=== PATIENT | male | born 1940 | race Caucasian/White ===

== ENCOUNTER 2017-06-29 17:27 | Inpatient (IN) | payer MEDICARE, OTHER ==
[~2017-06-29] VITALS: Ht 175.3 cm; Wt 124.9 kg
[2017-06-29] MEDS ORDERED: ADULT ASPIRIN R81 MG (17:35)
[2017-06-29] MEDS ORDERED: ATOR10 PO (17:36)
[2017-06-29] MEDS ORDERED: HYDCHL25 PO (17:36)
[2017-06-29] MEDS ORDERED: GABA600 PO (17:36)
[2017-06-29 18:12] LABS: Source, Urine Clean Catch
[2017-06-29 18:23] LABS: BASOPHILS ABSOLUTE AUTO 0.03 K/mm3 (0.00-0.23); BASOPHILS PERCENT AUTO 0 % (0-2); EOSINOPHILS ABSOLUTE AUTO 0.04 K/mm3 (0.00-0.68); EOSINOPHILS PERCENT AUTO 0 % (0-6); Hematocrit 35.4 % (37.0-53.0); Hemoglobin 11.6 g/dL (13.5-17.5); IMMATURE GRAN ABSOLUTE AUTO 0.19 K/mm3 (0.00-0.10); IMMATURE GRAN PERCENT AUTO 1 % (0-1); LYMPHOCYTES ABSOLUTE AUTO 1.14 K/mm3 (0.84-5.20); LYMPHOCYTES PERCENT AUTO 4 % (21-46); MONOCYTES ABSOLUTE AUTO 1.62 K/mm3 (0.16-1.47); MONOCYTES PERCENT AUTO 6 % (4-13); Mean Corpuscular HGB 27.8 pg (26.0-34.0); Mean Corpuscular HGB Conc 32.8 g/dL (31.5-36.5); Mean Corpuscular Volume 85 fL (80-100); Mean Platelet Volume 9.6 fL (9.1-12.4); NEUTROPHILS ABSOLUTE AUTO 23.53 K/mm3 (1.96-9.15); NEUTROPHILS PERCENT AUTO 89 % (41-73); Platelet Count 284 K/mm3 (150-400); RDW Coefficient Variation 14.2 % (11.7-14.2); RDW Standard Deviation 43.6 fL (35.1-46.3); Red Blood Cell Count 4.18 M/mm3 (4.30-5.90); White Blood Cell Count 26.55 K/mm3 (4.00-11.30)
[2017-06-29 18:24] LABS: Bilirubin, Urine Neg (Neg); Blood, Urine 1+ (Neg); Glucose Qualitative, Urine Neg (Neg); Ketones, Urine Neg (Neg); Leukocyte Esterase, Urine Neg (Neg); Nitrite, Urine Neg (Neg); Protein, Urine 2+ (Neg); Specific Gravity, Urine 1.015 (1.003-1.022); Urobilinogen, Urine NORM (Normal)
[2017-06-29 18:36] LABS: Appearance, Urine Clear (Clear); Color, Urine Yellow (P-Yellow)
[2017-06-29 18:38] LABS: Bacteria Rare /hpf; Red Blood Cells, Urine 0-2 /hpf (0-2); Squamous Epithelial Cells Rare /hpf (Few); White Blood Cells, Urine Not Seen /hpf (0-5)
[2017-06-29 18:40] LABS: Albumin/Globulin Ratio 0.6 (0.8-1.8); Bilirubin, Total 0.4 mg/dL (0.1-1.0); Bun/Creatinine Ratio 24.4 (12.0-20.0); Calcium, Blood 8.7 mg/dL (8.5-10.1); Creatinine, Blood 1.64 mg/dL (0.60-1.20); Globulin, Blood 4.7 g/dL (2.2-4.0); Potassium, Blood 4.2 mmol/L (3.5-5.5); Total Protein, Blood 7.7 g/dL (6.4-8.2)
[2017-06-29 21:04] LABS: Influenza A Negative (NEGATIVE); Influenza B Negative (NEGATIVE)
[2017-06-29 21:33] LABS: International Normalized Ratio 1.03; Prothrombin Time Results 10.7 Sec (9.7-11.5)
[2017-06-29 21:58] LABS: PCO2 Arterial 42.6 mmHg (35-45); PO2 Arterial 56.6 mmHg (80-100); pH Blood Arterial 7.37 (7.35-7.45)
[2017-06-29 22:00] LABS: Prolactin 27.5 ng/mL (2.5-17.4)
[2017-06-30] MEDS ORDERED: INSULANPEN SC (01:36)
[2017-06-30] MEDS ORDERED: METAMUCIL MULT660 GM PO (01:37)
[2017-06-30] MEDS ORDERED: Hair, Skin & N1 EACH PO (01:38)
[2017-06-30] MEDS ORDERED: INSU100I6 SC (01:39)
[2017-06-30] MEDS ORDERED: SERT50 PO (01:39)
[2017-06-30] MEDS ORDERED: TAMS.4ER PO (01:40)
[2017-06-30 03:55] LABS: Hemoglobin 10.6 g/dL (13.5-17.5); Mean Corpuscular HGB 27.7 pg (26.0-34.0); Mean Corpuscular HGB Conc 32.1 g/dL (31.5-36.5); Mean Corpuscular Volume 86 fL (80-100); Mean Platelet Volume 9.6 fL (9.1-12.4); Platelet Count 264 K/mm3 (150-400); RDW Coefficient Variation 14.7 % (11.7-14.2); RDW Standard Deviation 46.1 fL (35.1-46.3); Red Blood Cell Count 3.82 M/mm3 (4.30-5.90); White Blood Cell Count 36.28 K/mm3 (4.00-11.30)
[2017-06-30 04:12] LABS: Albumin, Blood 2.6 g/dL (3.4-5.0); Albumin/Globulin Ratio 0.6 (0.8-1.8); Bilirubin, Total 0.4 mg/dL (0.1-1.0); Bun/Creatinine Ratio 23.2 (12.0-20.0); Calcium, Blood 7.8 mg/dL (8.5-10.1); Creatinine, Blood 1.68 mg/dL (0.60-1.20); Globulin, Blood 4.4 g/dL (2.2-4.0); Potassium, Blood 4.1 mmol/L (3.5-5.5)
[2017-06-30 05:39] LABS: BASOPHILS PERCENT MAN 0 % (0-2); EOSINOPHILS PERCENT MAN 0 % (0-6); LYMPHOCYTES ABSOLUTE MAN 1.08 K/mm3 (0.84-5.20); LYMPHOCYTES PERCENT MAN 3 % (21-46); MONOCYTES ABSOLUTE MAN 0.36 K/mm3 (0.16-1.47); MONOCYTES PERCENT MAN 1 % (4-13); NEUTROPHILS ABSOLUTE MAN 34.82 K/mm3 (1.96-9.15); SEG NEUTROPHILS PERCENT MAN 96 % (41-73); TOTAL CELLS COUNTED 100
[2017-06-30 09:07] LABS: Vancomycin, Trough 15.5 ug/mL (5.0-10.0)
[2017-07-01 04:48] LABS: BASOPHILS ABSOLUTE AUTO 0.02 K/mm3 (0.00-0.23); BASOPHILS PERCENT AUTO 0 % (0-2); EOSINOPHILS PERCENT AUTO 1 % (0-6); Hematocrit 32.6 % (37.0-53.0); Hemoglobin 10.3 g/dL (13.5-17.5); IMMATURE GRAN ABSOLUTE AUTO 0.07 K/mm3 (0.00-0.10); IMMATURE GRAN PERCENT AUTO 0 % (0-1); LYMPHOCYTES ABSOLUTE AUTO 2.28 K/mm3 (0.84-5.20); LYMPHOCYTES PERCENT AUTO 13 % (21-46); MONOCYTES ABSOLUTE AUTO 1.18 K/mm3 (0.16-1.47); MONOCYTES PERCENT AUTO 7 % (4-13); Mean Corpuscular HGB 27.4 pg (26.0-34.0); Mean Corpuscular HGB Conc 31.6 g/dL (31.5-36.5); Mean Corpuscular Volume 87 fL (80-100); Mean Platelet Volume 9.7 fL (9.1-12.4); NEUTROPHILS ABSOLUTE AUTO 14.59 K/mm3 (1.96-9.15); NEUTROPHILS PERCENT AUTO 80 % (41-73); Platelet Count 233 K/mm3 (150-400); Red Blood Cell Count 3.76 M/mm3 (4.30-5.90); White Blood Cell Count 18.24 K/mm3 (4.00-11.30)
[2017-07-01 06:04] LABS: Bun/Creatinine Ratio 21.9 (12.0-20.0); Creatinine, Blood 1.6 mg/dL (0.60-1.20); Potassium, Blood 3.8 mmol/L (3.5-5.5)
[2017-07-01 09:34] LABS: Vancomycin, Trough 28.5 ug/mL (5.0-10.0)
[2017-07-01 20:21] LABS: Vancomycin, Trough 19.9 ug/mL (5.0-10.0)
[2017-07-02 05:44] LABS: BASOPHILS ABSOLUTE AUTO 0.02 K/mm3 (0.00-0.23); BASOPHILS PERCENT AUTO 0 % (0-2); EOSINOPHILS PERCENT AUTO 2 % (0-6); Hematocrit 33.7 % (37.0-53.0); Hemoglobin 10.7 g/dL (13.5-17.5); IMMATURE GRAN PERCENT AUTO 1 % (0-1); LYMPHOCYTES ABSOLUTE AUTO 2.31 K/mm3 (0.84-5.20); LYMPHOCYTES PERCENT AUTO 19 % (21-46); MONOCYTES ABSOLUTE AUTO 1.18 K/mm3 (0.16-1.47); MONOCYTES PERCENT AUTO 10 % (4-13); Mean Corpuscular HGB 27.7 pg (26.0-34.0); Mean Corpuscular HGB Conc 31.8 g/dL (31.5-36.5); Mean Corpuscular Volume 87 fL (80-100); Mean Platelet Volume 9.8 fL (9.1-12.4); NEUTROPHILS ABSOLUTE AUTO 8.41 K/mm3 (1.96-9.15); NEUTROPHILS PERCENT AUTO 68 % (41-73); Platelet Count 255 K/mm3 (150-400); RDW Coefficient Variation 14.7 % (11.7-14.2); RDW Standard Deviation 47.2 fL (35.1-46.3); Red Blood Cell Count 3.86 M/mm3 (4.30-5.90); White Blood Cell Count 12.32 K/mm3 (4.00-11.30)
[2017-07-02 06:07] LABS: Alanine Aminotransfer (ALT/SGP 47 U/L (12-78); Albumin, Blood 2.4 g/dL (3.4-5.0); Albumin/Globulin Ratio 0.5 (0.8-1.8); Alk Phos 82 U/L (50-136); Anion Gap 7 mmol/L (6-16); Aspartate Aminotrans (AST/SGOT 46 U/L (12-37); Bilirubin, Total 0.2 mg/dL (0.1-1.0); Blood Urea Nitrogen 32 mg/dL (8-24); Bun/Creatinine Ratio 21.9 (12.0-20.0); CO2, Blood 27 mmol/L (21-32); Calcium, Blood 8.1 mg/dL (8.5-10.1); Chloride, Blood 103 mmol/L (98-108); Creatinine, Blood 1.46 mg/dL (0.60-1.20); Globulin, Blood 4.8 g/dL (2.2-4.0); Glomerular Filtration Rate 49 (60-); Glucose, Blood 143 mg/dL (70-99); Sodium, Blood 137 mmol/L (136-145); Total Protein, Blood 7.2 g/dL (6.4-8.2)
[2017-07-03 05:36] LABS: Vancomycin, Trough 17.8 ug/mL (5.0-10.0)
[2017-07-04 06:24] LABS: BASOPHILS ABSOLUTE AUTO 0.03 K/mm3 (0.00-0.23); BASOPHILS PERCENT AUTO 0 % (0-2); EOSINOPHILS ABSOLUTE AUTO 0.29 K/mm3 (0.00-0.68); EOSINOPHILS PERCENT AUTO 3 % (0-6); Hematocrit 36.9 % (37.0-53.0); Hemoglobin 12.1 g/dL (13.5-17.5); IMMATURE GRAN ABSOLUTE AUTO 0.31 K/mm3 (0.00-0.10); IMMATURE GRAN PERCENT AUTO 3 % (0-1); LYMPHOCYTES ABSOLUTE AUTO 2.58 K/mm3 (0.84-5.20); LYMPHOCYTES PERCENT AUTO 25 % (21-46); MONOCYTES ABSOLUTE AUTO 0.76 K/mm3 (0.16-1.47); MONOCYTES PERCENT AUTO 7 % (4-13); Mean Corpuscular HGB 27.8 pg (26.0-34.0); Mean Corpuscular HGB Conc 32.8 g/dL (31.5-36.5); Mean Corpuscular Volume 85 fL (80-100); Mean Platelet Volume 9.4 fL (9.1-12.4); NEUTROPHILS ABSOLUTE AUTO 6.24 K/mm3 (1.96-9.15); NEUTROPHILS PERCENT AUTO 61 % (41-73); Platelet Count 304 K/mm3 (150-400); RDW Coefficient Variation 14.1 % (11.7-14.2); RDW Standard Deviation 43.7 fL (35.1-46.3); Red Blood Cell Count 4.35 M/mm3 (4.30-5.90); White Blood Cell Count 10.21 K/mm3 (4.00-11.30)
[2017-07-04 06:48] LABS: Alanine Aminotransfer (ALT/SGP 36 U/L (12-78); Albumin, Blood 2.6 g/dL (3.4-5.0); Albumin/Globulin Ratio 0.5 (0.8-1.8); Alk Phos 85 U/L (50-136); Anion Gap 9 mmol/L (6-16); Aspartate Aminotrans (AST/SGOT 26 U/L (12-37); Bilirubin, Total 0.3 mg/dL (0.1-1.0); Blood Urea Nitrogen 30 mg/dL (8-24); Bun/Creatinine Ratio 20.5 (12.0-20.0); CO2, Blood 26 mmol/L (21-32); Calcium, Blood 8.6 mg/dL (8.5-10.1); Chloride, Blood 102 mmol/L (98-108); Creatinine, Blood 1.46 mg/dL (0.60-1.20); Glomerular Filtration Rate 49 (60-); Glucose, Blood 149 mg/dL (70-99); Potassium, Blood 4.2 mmol/L (3.5-5.5); Sodium, Blood 137 mmol/L (136-145); Total Protein, Blood 7.6 g/dL (6.4-8.2)
[2017-07-06] MEDS ORDERED: ASPI81CH PO (15:38)
[2017-07-06] MEDS ORDERED: CEPH500 PO (15:39)
[2018-05-27] MEDS ORDERED: SENN187 PO (19:23)
[2018-05-27] MEDS ORDERED: Vitamin B Comple1 EA PO (19:26)
[2018-05-27] MEDS ORDERED: CHOL10002 PO (19:27)
[2018-05-27] MEDS ORDERED: ROPI.25 PO ×2 (19:28→19:29)
[2018-05-27] MEDS ORDERED: DOK100 MG PO ×2 (19:28→19:30)
[2018-05-27] MEDS ORDERED: FLONASE ALLERG9.9 ML (19:31)
[2018-05-27] MEDS ORDERED: LOSA25 PO (19:33)
[2018-05-27] MEDS ORDERED: MULTI VITAMIN1 EACH PO (19:33)
[2018-05-27] MEDS ORDERED: NITR.4SL SL (19:36)
[2018-05-27] MEDS ORDERED: HYDR1TAB94 PO (19:37)
[2018-05-27] MEDS ORDERED: ONDA8 PO (19:37)
[2018-05-27] MEDS ORDERED: ACET325 PO (19:38)
[2018-05-27] MEDS ORDERED: Milk Of Ma400 MG/5 M PO (22:31)
[2018-06-01] MEDS ORDERED: DOXY100 PO (13:34)
[2018-06-01] MEDS ORDERED: PRED10 PO (13:36)
[2018-06-01] MEDS ORDERED: SACC250C PO (13:37)
== END 2017-07-06 17:18 | disposition home health service (06) | DRG 871 ==
LOC: ER 17:27 → ICUW 21:43 → ICUE 21:43 → MEDS 06-30 20:37
PROVIDERS: Emergency Medicine; Hospitalist; Internal Medicine
DX: A41.9 Sepsis, unspecified organism (principal); G93.41 Metabolic encephalopathy; E11.40 Type 2 diabetes mellitus with diabetic neuropathy, unspecified; E11.22 Type 2 diabetes mellitus with diabetic chronic kidney disease; L03.116 Cellulitis of left lower limb; Z68.41 Body mass index [BMI] 40.0-44.9, adult; F03.90 Unspecified dementia, unspecified severity, without behavioral disturbance, psychotic disturbance, mood disturbance, and anxiety; R65.20 Severe sepsis without septic shock; I12.9 Hypertensive chronic kidney disease with stage 1 through stage 4 chronic kidney disease, or unspecified chronic kidney disease; N18.2 Chronic kidney disease, stage 2 (mild); E78.5 Hyperlipidemia, unspecified; E66.9 Obesity, unspecified; Z66 Do not resuscitate; Z88.0 Allergy status to penicillin; Z88.2 Allergy status to sulfonamides; Z88.8 Allergy status to other drugs, medicaments and biological substances; Z79.82 Long term (current) use of aspirin; Z79.4 Long term (current) use of insulin; Z79.899 Other long term (current) drug therapy
CPT/HCPCS: 36415; 36600; 51701; 51703; 62270; 70450; 71045; 73620; 80048; 80053; 80202; 81001; 82607; 82746; 82803; 82947; 83605; 83880; 84146; 84443; 85025; 85610; 86592; 87040; 87081; 87804; 96361; 96365; 96367; 97110; 97116; 97162; 97530; 99285; C1751; G8978; G8979; J0456; J0696; J1650; J1815; J2405; J3370; J7030; J7050

== ENCOUNTER → 2018-01-29 | Outpatient (CLI) | payer MEDICARE, OTHER ==
[~2018-01-29] MED LIST: ADULT ASPIRIN R81 MG; ASPI81CH PO; ATOR10 PO; CEPH500 PO; GABA600 PO; HYDCHL25 PO; Hair, Skin & N1 EACH PO; INSU100I6 SC; INSULANPEN SC; METAMUCIL MULT660 GM PO; SERT50 PO; TAMS.4ER PO
[2018-01-29 17:02] LABS: Source, Urine Clean Catch
[2018-01-29 17:13] LABS: Appearance, Urine Clear (Clear); Bilirubin, Urine Neg (Neg); Blood, Urine Neg (Neg); Color, Urine Yellow (P-Yellow); Glucose Qualitative, Urine Neg (Neg); Ketones, Urine Neg (Neg); Leukocyte Esterase, Urine Neg (Neg); Nitrite, Urine Neg (Neg); Protein, Urine Neg (Neg); Specific Gravity, Urine 1.015 (1.003-1.022); Urobilinogen, Urine NORM (Normal)
== END ==
LOC: LAB SHORT 12:55 → LAB 12:55
PROVIDERS: Internal Medicine
DX: R39.9 Unspecified symptoms and signs involving the genitourinary system (principal)
CPT/HCPCS: 81003

== ENCOUNTER 2019-02-19 12:19 | Inpatient (IN) | payer MEDICARE, OTHER ==
[~2019-02-19] VITALS: Ht 180.3 cm; Wt 127.0 kg
[~2019-02-19 12:19] MED LIST changes: -ASPI81CH PO; -ATOR10 PO; +DOK100 MG PO; +DOXY100 PO; -GABA600 PO; -HYDCHL25 PO; -INSU100I6 SC; -INSULANPEN SC; +PRED10 PO; +ROPI.25 PO; +SACC250C PO; -SERT50 PO; -TAMS.4ER PO
[2019-02-19 13:01] LABS: BASOPHILS ABSOLUTE AUTO 0.06 K/mm3 (0.00-0.23); BASOPHILS PERCENT AUTO 0 % (0-2); EOSINOPHILS ABSOLUTE AUTO 0.02 K/mm3 (0.00-0.68); EOSINOPHILS PERCENT AUTO 0 % (0-6); Hematocrit 38.6 % (37.0-53.0); Hemoglobin 12.5 g/dL (13.5-17.5); IMMATURE GRAN ABSOLUTE AUTO 0.41 K/mm3 (0.00-0.10); IMMATURE GRAN PERCENT AUTO 1 % (0-1); LYMPHOCYTES ABSOLUTE AUTO 0.71 K/mm3 (0.84-5.20); LYMPHOCYTES PERCENT AUTO 2 % (21-46); MONOCYTES ABSOLUTE AUTO 1.76 K/mm3 (0.16-1.47); MONOCYTES PERCENT AUTO 6 % (4-13); Mean Corpuscular HGB 29.2 pg (26.0-34.0); Mean Corpuscular HGB Conc 32.4 g/dL (31.5-36.5); Mean Corpuscular Volume 90 fL (80-100); Mean Platelet Volume 10.2 fL (9.1-12.4); NEUTROPHILS ABSOLUTE AUTO 27.65 K/mm3 (1.96-9.15); NEUTROPHILS PERCENT AUTO 90 % (41-73); Platelet Count 264 K/mm3 (150-400); RDW Coefficient Variation 13.8 % (11.7-14.2); RDW Standard Deviation 45.6 fL (35.1-46.3); Red Blood Cell Count 4.28 M/mm3 (4.30-5.90); White Blood Cell Count 30.61 K/mm3 (4.00-11.30)
[2019-02-19 13:02] LABS: Source, Urine Catheter
[2019-02-19 13:05] LABS: Bilirubin, Urine Neg (Neg); Blood, Urine Neg (Neg); Glucose Qualitative, Urine Neg (Neg); Ketones, Urine Neg (Neg); Leukocyte Esterase, Urine Neg (Neg); Nitrite, Urine Neg (Neg); Protein, Urine 2+ (Neg); Specific Gravity, Urine 1.015 (1.003-1.022); Urobilinogen, Urine NORM (Normal)
[2019-02-19 13:16] LABS: Color, Urine Yellow (P-Yellow)
[2019-02-19 13:16] LABS: Albumin, Blood 3.3 g/dL (3.4-5.0); Albumin/Globulin Ratio 0.8 (0.8-1.8); Bilirubin, Total 0.3 mg/dL (0.1-1.0); Bun/Creatinine Ratio 25.9 (12.0-20.0); Calcium, Blood 8.5 mg/dL (8.5-10.1); Creatinine, Blood 1.62 mg/dL (0.60-1.20); Globulin, Blood 4.3 g/dL (2.2-4.0); Potassium, Blood 4.4 mmol/L (3.5-5.5); Total Protein, Blood 7.6 g/dL (6.4-8.2); Troponin I 0.026 ng/mL (0.000-0.040)
[2019-02-19 13:27] LABS: Amorphous Light ({null, 0-Heavy}); Appearance, Urine Clear (Clear); Bacteria Rare /hpf; Red Blood Cells, Urine 0-2 /hpf (0-2); Squamous Epithelial Cells Rare /hpf (Few); White Blood Cells, Urine 0-2 /hpf (0-5)
[2019-02-19] MEDS ORDERED: HYDCHL25 PO (13:49)
[2019-02-19] MEDS ORDERED: INSULANPEN SC (13:50)
[2019-02-19] MEDS ORDERED: NOVOLOG FL100 UNIT/1 SC (13:50)
[2019-02-19] MEDS ORDERED: DOK100 MG PO (13:51)
[2019-02-19] MEDS ORDERED: Aspirin EC81 MG PO (13:51)
[2019-02-19] MEDS ORDERED: SERT50 PO (13:51)
[2019-02-19] MEDS ORDERED: Flonase 0.05% N16 GM (13:52)
[2019-02-19] MEDS ORDERED: LOSA50 PO (13:53)
[2019-02-19] MEDS ORDERED: Amlodipine Bes2.5 MG PO (13:53)
[2019-02-19] MEDS ORDERED: LACT PO (13:53)
[2019-02-19] MEDS ORDERED: FERSU300 PO (13:54)
[2019-02-19] MEDS ORDERED: ATOR10 PO (13:55)
[2019-02-19] MEDS ORDERED: GABA600 PO (13:55)
[2019-02-19] MEDS ORDERED: TAMS.4ER PO (13:55)
[2019-02-19] MEDS ORDERED: VITAMIN D32000 UNI1 PO (13:57)
[2019-02-19] MEDS ORDERED: Ropinirole HCl1 MG PO (13:58)
[2019-02-19] MEDS ORDERED: MULTI VITAMIN1 EACH PO (13:58)
[2019-02-19] MEDS ORDERED: HYDR1TAB94 PO ×2 (13:59→14:12)
[2019-02-19] MEDS ORDERED: SENN187 PO (14:00)
[2019-02-19] MEDS ORDERED: NITR.4SL SL (14:01)
[2019-02-19] MEDS ORDERED: ONDA8 PO (14:01)
[2019-02-19] MEDS ORDERED: ACET500 PO (14:02)
[2019-02-19] MEDS ORDERED: B-121000 MC2 PO (14:03)
[2019-02-19] MEDS ORDERED: ASCO500 PO (14:04)
[2019-02-19] MEDS ORDERED: Milk Of Ma400 MG/5 M PO (14:04)
[2019-02-19] MEDS ORDERED: MELA3 PO (14:04)
[2019-02-19] MEDS ORDERED: Pedi-Dri 100,0060 GM TOP (14:05)
[2019-02-19] MEDS ORDERED: DICLOFENAC SOD100 G1 TOP (14:07)
[2019-02-19] MEDS ORDERED: VANICREAM453 GM TOP (14:08)
[2019-02-19] MEDS ORDERED: Glucose4 GM PO (14:09)
[2019-02-19] MEDS ORDERED: BISA10S PR (14:10)
[2019-02-19] MEDS ORDERED: ENEMA BOTTLE1 EACH PR (14:11)
[2019-02-19] MEDS ORDERED: Pepto-Bism525 MG/15 PO (14:12)
[2019-02-19] MEDS ORDERED: ALLERGY EYE DRO10 M1 BOTHEYES (14:13)
[2019-02-19] MEDS ORDERED: Triple Antibio1 EACH TOP (14:14)
[2019-02-19] MEDS ORDERED: [UNRECOGNIZED DRUG - OTHER] TOP (14:14)
--- NOTE | 2019-02-19 17:30 | NUR ---
PT ARRIVED TO ROOM 344 VIA GURNEY. TRANSFERRED TO BED WITH SLIDE SHEET, 2LNC IN PLACE, PT RESP INCREASED, USING ABD MUSCLES. ORIENTED TO ROOM AND CALL SYSTEM. WILL CONTINUE TO MONITOR AND REPORT TO ONCOMING RN
--- NOTE | 2019-02-20 05:34 | NUR ---
SHIFT SUMMARY PT A/O C/O PAIN IN KNEES AND MEDICATED PER EMAR. GETS SOB C EXERTION. 2L O2 NC. USED RECLINER TO SLEEP IN FOR A WHILE BEFORE GOING BACK TO BED. BEEN INCONT. 1-2 SBA IF OOB. BED ALARM IN USE. HE WAS ABLE TO SLEEP ON AND OFF T/O NIGHT.
[2019-02-20 05:48] LABS: Hematocrit 34.3 % (37.0-53.0); Hemoglobin 10.8 g/dL (13.5-17.5); Mean Corpuscular HGB Conc 31.5 g/dL (31.5-36.5); Mean Corpuscular Volume 92 fL (80-100); Mean Platelet Volume 10.1 fL (9.1-12.4); Platelet Count 220 K/mm3 (150-400); RDW Coefficient Variation 14.4 % (11.7-14.2); RDW Standard Deviation 49.1 fL (35.1-46.3); Red Blood Cell Count 3.72 M/mm3 (4.30-5.90); White Blood Cell Count 30.81 K/mm3 (4.00-11.30)
[2019-02-20 06:06] LABS: Bun/Creatinine Ratio 24.7 (12.0-20.0); Calcium, Blood 8.3 mg/dL (8.5-10.1); Creatinine, Blood 1.86 mg/dL (0.60-1.20); Potassium, Blood 4.4 mmol/L (3.5-5.5)
--- NOTE | 2019-02-20 15:56 | NUR ---
REPORT CALLED TO DAREN BUTLER AND PT TRANSFERRED TO ROOM 312
--- NOTE | 2019-02-20 16:12 | NUR ---
PT TRANSFERED PT TRANSFERED AT 1534. PT IN STABLE CONDITION. PT ORIENTED TO NEW ROOM. CALL LIGHT IN REACH. BED ALARMED. WILL CONTINUE TO MONITOR
--- NOTE | 2019-02-20 16:21 | NUR ---
CODE STATUS-DNR CODE STATUS CHANGED TO DNR DR. PT REQUEST. ORDER CONFIRMED WITH DR. SIM. DNR BAND PLACED & ORDER VERIFIED BY OPHELIA WASHINGTON.
--- NOTE | 2019-02-20 17:33 | NUR ---
SHIFT SUMMARY NO CHANGES IN ASSESSMENT AT THIS TIME. PT A&O. BED ALARMED FOR FORGETFULNESS. VSS. WILL CONTINUE TO MONITOR UNTIL TURNOVER IS COMPLETE.
--- NOTE | 2019-02-21 03:38 | NUR ---
NOC SHIFT SUMMARY PT IS PLEASANT AND COOPERATIVE WITH CARE. ORIENTED TO SELF AND PLACE. HE KNOWS HE IS IN [facility] BUT BELIEVES IT TO BE LOCATED IN [place]. HE IS ON TELE PRESENTLY SINUS PILO WITH FIRST DEGREE BLOCK RATE 53 PER AIRFRAME TECHNICIAN. HE IS SLEEPING AND RESP ARE EVEN AND UNLABORED, SNORING SOFTLY. TREATED FOR PAIN PER EMAR TO GOOD EFFECT. LEFT LOWER LEG CELLULITIS REMAINS RED FROM BELOW KNEE TO FOOT. INCONTINENT OF URINE THIS NIGHT AND REQUIRED BED CHANGE. PRESENTLY APEARS IN NO ACUTE DISTRESS. VSS. WILL CONTINUE TO MONITOR.
[2019-02-21 08:13] LABS: Hematocrit 36.6 % (37.0-53.0); Hemoglobin 11.6 g/dL (13.5-17.5); Mean Corpuscular HGB 28.6 pg (26.0-34.0); Mean Corpuscular HGB Conc 31.7 g/dL (31.5-36.5); Mean Corpuscular Volume 90 fL (80-100); Mean Platelet Volume 10.1 fL (9.1-12.4); Platelet Count 220 K/mm3 (150-400); RDW Coefficient Variation 14.4 % (11.7-14.2); RDW Standard Deviation 48.1 fL (35.1-46.3); Red Blood Cell Count 4.05 M/mm3 (4.30-5.90); White Blood Cell Count 14.05 K/mm3 (4.00-11.30)
[2019-02-21 08:36] LABS: Bun/Creatinine Ratio 24.3 (12.0-20.0); Calcium, Blood 8.7 mg/dL (8.5-10.1); Creatinine, Blood 1.77 mg/dL (0.60-1.20); Potassium, Blood 4.2 mmol/L (3.5-5.5)
[2019-02-21 15:39] LABS: Vancomycin, Trough 15.2 ug/mL (5.0-10.0)
--- NOTE | 2019-02-21 18:34 | NUR ---
SUMMARY PT IS A/O X4, PLEASANT/COOPERATIVE AFFECT. STATE WEAKNESS/FATIGUE. STATE NO PAIN LLE CELLULITIS AREA D/T HX NEUROPATHY, NUMBNESS. LEG IS RED, WARM w MULT SCABS, NOT SWOLLEN. WBC 14, IV ANTIBX ARE ORDERED. HE HAS BEEN AFEBRILE T/O DAY. EYELET MACHINE OPERATOR ASSIST HIM TO SHOWER TODAY, [address] SIM STATE POSSIBLE D/C TO [facility] TOMORROW.
--- NOTE | 2019-02-22 06:36 | NUR ---
SHIFT SUMMARY NO ACUTE EVENTS OVERNIGHT. PATIENT SLEPT THROUGHOUT NIGHT. PATIENT FORGETFUL AT TIME BUT AAOX4. LLE EDEMATOUS AND RED.
--- NOTE | 2019-02-22 17:41 | NUR ---
SUMMARY PT IS A/O X4 T/O DAY, PLEASANT AFFECT. GETS UP TO BEDSIDE FOR MEALS & TO USE URINAL. DECLINES UP IN CHAIR T/O DAY. STATE CONTINUING WEAKNESS/FATIGUE. DX LLE CELLULITIS, LEG IS RED, WARM, SWOLLEN, AREA MAPPED. MULT HEALING SCABS BLE, HE STATE HX BLE NEUROPATHY/NUMBNESS. STATE NO PAIN. IV ANTIBX CONTINUE. VSS, HE IS AFEBRILE T/O DAY.
[2019-02-23 04:44] LABS: BASOPHILS ABSOLUTE AUTO 0.03 K/mm3 (0.00-0.23); BASOPHILS PERCENT AUTO 0 % (0-2); EOSINOPHILS ABSOLUTE AUTO 0.35 K/mm3 (0.00-0.68); EOSINOPHILS PERCENT AUTO 4 % (0-6); Hematocrit 34.5 % (37.0-53.0); IMMATURE GRAN ABSOLUTE AUTO 0.19 K/mm3 (0.00-0.10); IMMATURE GRAN PERCENT AUTO 2 % (0-1); LYMPHOCYTES ABSOLUTE AUTO 2.24 K/mm3 (0.84-5.20); LYMPHOCYTES PERCENT AUTO 26 % (21-46); MONOCYTES ABSOLUTE AUTO 0.85 K/mm3 (0.16-1.47); MONOCYTES PERCENT AUTO 10 % (4-13); Mean Corpuscular HGB 28.6 pg (26.0-34.0); Mean Corpuscular HGB Conc 31.9 g/dL (31.5-36.5); Mean Corpuscular Volume 90 fL (80-100); Mean Platelet Volume 9.5 fL (9.1-12.4); NEUTROPHILS PERCENT AUTO 57 % (41-73); Platelet Count 243 K/mm3 (150-400); RDW Coefficient Variation 14.1 % (11.7-14.2); RDW Standard Deviation 45.8 fL (35.1-46.3); Red Blood Cell Count 3.84 M/mm3 (4.30-5.90); White Blood Cell Count 8.56 K/mm3 (4.00-11.30)
--- NOTE | 2019-02-23 05:04 | NUR ---
SHIFT SUMMARY PATEINT HAD NO ACUTE EVENTS OVERNIGHT. SLEPT THE MAJORITY OF THE NIGHT AFTER RECEIVING EVENING MEDS.
[2019-02-23 05:07] LABS: Albumin, Blood 2.5 g/dL (3.4-5.0); Albumin/Globulin Ratio 0.6 (0.8-1.8); Bilirubin, Total 0.3 mg/dL (0.1-1.0); Bun/Creatinine Ratio 25.8 (12.0-20.0); Calcium, Blood 8.6 mg/dL (8.5-10.1); Creatinine, Blood 1.63 mg/dL (0.60-1.20); Globulin, Blood 4.1 g/dL (2.2-4.0); Potassium, Blood 4.1 mmol/L (3.5-5.5); Total Protein, Blood 6.6 g/dL (6.4-8.2)
[2019-02-23 05:17] LABS: Thyroid Stimulating Hormone 4.23 uIU/mL (0.360-4.800)
[2019-02-23] MEDS ORDERED: CEFP200 PO (14:13)
--- NOTE | 2019-02-23 14:46 | NUR ---
REPORT CALLED TO CARRIE GREENWOOD AT [facility]. RX FAXED TO [facility] AND TO [facility] WELL A COPY SENT WITH PT TO [facility]. PT PRIMARY UPDATED TO WYATT BELCHER AT THE ID. PER TIMO SHE WILL CALL AND SCHEDULE A F/U WITH HOME BASED CARE THROUGH THE ID. PT AWAITING TRANSPORTATION BACK.
--- NOTE | 2019-02-23 15:13 | NUR ---
PT DISCHARGED BACK TO [facility] AT 1510 VIA [facility] W/C.
--- NOTE | 2019-03-11 03:19 | NUR ---
ISOLATION ORDER PLACED ON 02/21/2019 WAS FROM NAS SIM MD NOT JING SIM MD.
== END 2019-02-23 15:10 | disposition home or self-care (01) | DRG 871 ==
LOC: ER 12:19 → MEDS 14:38 → EDPENDDIS 02-23 14:04 → ENPENDDIS 02-23 14:04 → MEDS 02-23 15:10
PROVIDERS: Emergency Medicine; Internal Medicine; Pharmacist; ADMIT Internal Medicine
DX: A41.9 Sepsis, unspecified organism (principal); G93.41 Metabolic encephalopathy; L03.116 Cellulitis of left lower limb; R65.20 Severe sepsis without septic shock; N40.0 Benign prostatic hyperplasia without lower urinary tract symptoms; N18.3 Chronic kidney disease, stage 3 (moderate); F03.90 Unspecified dementia, unspecified severity, without behavioral disturbance, psychotic disturbance, mood disturbance, and anxiety; E11.22 Type 2 diabetes mellitus with diabetic chronic kidney disease; I12.9 Hypertensive chronic kidney disease with stage 1 through stage 4 chronic kidney disease, or unspecified chronic kidney disease; D63.1 Anemia in chronic kidney disease; E11.40 Type 2 diabetes mellitus with diabetic neuropathy, unspecified; E78.5 Hyperlipidemia, unspecified; Z66 Do not resuscitate; Z88.0 Allergy status to penicillin; Z88.2 Allergy status to sulfonamides; Z88.8 Allergy status to other drugs, medicaments and biological substances; Z87.891 Personal history of nicotine dependence; Z79.82 Long term (current) use of aspirin; Z79.4 Long term (current) use of insulin; Z79.899 Other long term (current) drug therapy
CPT/HCPCS: 36415; 51701; 71045; 80048; 80053; 80202; 81001; 82728; 82947; 83540; 83550; 83605; 83880; 84443; 84484; 85025; 85027; 87040; 93005; 93010; 96361; 96365; 96366; 96368; 99285-25; A9270; A9270-GY; J1644; J1815; J1956; J3370; J7030; J7050; J7120

== ENCOUNTER 2019-08-11 12:47 | Inpatient (IN) | payer MEDICARE, OTHER ==
[~2019-08-11] VITALS: Ht 177.8 cm; Wt 113.4 kg
[~2019-08-11 12:47] MED LIST changes: +ACET500 PO; +ALLERGY EYE DRO10 M1 BOTHEYES; +ASCO500 PO; +ATOR10 PO; +Amlodipine Bes2.5 MG PO; +Aspirin EC81 MG PO; +B-121000 MC2 PO; +BISA10S PR; +CEFP200 PO; +DICLOFENAC SOD100 G1 TOP; +ENEMA BOTTLE1 EACH PR; +FERSU300 PO; +Flonase 0.05% N16 GM; +GABA600 PO; +Glucose4 GM PO; +HYDCHL25 PO; +HYDR1TAB94 PO; +INSULANPEN SC; +LACT PO; +LOSA50 PO; +MELA3 PO; +MULTI VITAMIN1 EACH PO; +Milk Of Ma400 MG/5 M PO; +NITR.4SL SL; +NOVOLOG FL100 UNIT/1 SC; +ONDA8 PO; +Pedi-Dri 100,0060 GM TOP; +Pepto-Bism525 MG/15 PO; +Ropinirole HCl1 MG PO; +SENN187 PO; +SERT100 PO; +TAMS.4ER PO; +Triple Antibio1 EACH TOP; +VANICREAM453 GM TOP; +VITAMIN D32000 UNI1 PO; +[UNRECOGNIZED DRUG - OTHER] TOP
[2019-08-11 13:48] LABS: Source, Urine Catheter
[2019-08-11 13:51] LABS: BASOPHILS ABSOLUTE AUTO 0.06 K/mm3 (0.00-0.23); BASOPHILS PERCENT AUTO 0 % (0-2); EOSINOPHILS ABSOLUTE AUTO 0.15 K/mm3 (0.00-0.68); EOSINOPHILS PERCENT AUTO 1 % (0-6); Hematocrit 39.8 % (37.0-53.0); Hemoglobin 12.6 g/dL (13.5-17.5); IMMATURE GRAN ABSOLUTE AUTO 0.34 K/mm3 (0.00-0.10); IMMATURE GRAN PERCENT AUTO 1 % (0-1); LYMPHOCYTES ABSOLUTE AUTO 1.69 K/mm3 (0.84-5.20); LYMPHOCYTES PERCENT AUTO 7 % (21-46); MONOCYTES ABSOLUTE AUTO 1.79 K/mm3 (0.16-1.47); MONOCYTES PERCENT AUTO 7 % (4-13); Mean Corpuscular HGB 29.6 pg (26.0-34.0); Mean Corpuscular HGB Conc 31.7 g/dL (31.5-36.5); Mean Corpuscular Volume 94 fL (80-100); Mean Platelet Volume 9.2 fL (9.1-12.4); NEUTROPHILS PERCENT AUTO 84 % (41-73); Platelet Count 317 K/mm3 (150-400); RDW Coefficient Variation 13.2 % (11.7-14.2); RDW Standard Deviation 45.8 fL (35.1-46.3); Red Blood Cell Count 4.25 M/mm3 (4.30-5.90); White Blood Cell Count 24.73 K/mm3 (4.00-11.30)
[2019-08-11 14:14] LABS: Albumin, Blood 3.4 g/dL (3.4-5.0); Albumin/Globulin Ratio 0.7 (0.8-1.8); Bilirubin, Total 0.4 mg/dL (0.1-1.0); Bun/Creatinine Ratio 21.9 (12.0-20.0); Calcium, Blood 8.7 mg/dL (8.5-10.1); Creatinine, Blood 1.55 mg/dL (0.60-1.20); Globulin, Blood 4.7 g/dL (2.2-4.0); International Normalized Ratio 0.97; Potassium, Blood 4.3 mmol/L (3.5-5.5); Prothrombin Time Results 10.4 Sec (9.7-11.5); Total Protein, Blood 8.1 g/dL (6.4-8.2)
[2019-08-11 15:01] LABS: Bilirubin, Urine Neg (Neg); Blood, Urine Neg (Neg); Glucose Qualitative, Urine Neg (Neg); Ketones, Urine Neg (Neg); Leukocyte Esterase, Urine Neg (Neg); Nitrite, Urine Neg (Neg); Protein, Urine 2+ (Neg); Urobilinogen, Urine NORM (Normal)
[2019-08-11 15:11] LABS: Appearance, Urine Clear (Clear); Color, Urine Yellow (P-Yellow)
[2019-08-11 15:15] LABS: Bacteria Rare /hpf; Mucus Light (0-Heavy); Red Blood Cells, Urine Not Seen /hpf (0-2); Squamous Epithelial Cells Rare /hpf (Few); White Blood Cells, Urine Not Seen /hpf (0-5)
[2019-08-11] MEDS ORDERED: Vsl#3 Capsule1 EACH PO (15:55)
[2019-08-11] MEDS ORDERED: SARNA ANTI-ITC222 ML TOP (16:02)
[2019-08-11 19:06] LABS: Adenovirus Not Detected (NOT DETECT); Bordetella pertussis Not Detected (NOT DETECT); Chlamydophila pneumoniae Not Detected (NOT DETECT); Coronavirus 229E Not Detected (NOT DETECT); Coronavirus HKU1 Detected (NOT DETECT); Coronavirus NL63 Not Detected (NOT DETECT); Coronavirus OC43 Not Detected (NOT DETECT); Human Metapneumovirus Not Detected (NOT DETECT); Human Rhinovirus/Enterovirus Not Detected (NOT DETECT); Influenza A Not Detected (NOT DETECT); Influenza A/2009-H1 Not Detected (NOT DETECT); Influenza A/H1 Not Detected (NOT DETECT); Influenza A/H3 Not Detected (NOT DETECT); Influenza B Not Detected (NOT DETECT); Mycoplasma pneumoniae Not Detected (NOT DETECT); Parainfluenza Virus 1 Not Detected (NOT DETECT); Parainfluenza Virus 2 Not Detected (NOT DETECT); Parainfluenza Virus 3 Not Detected (NOT DETECT); Parainfluenza Virus 4 Not Detected (NOT DETECT); Respiratory Syncytial Virus Not Detected (NOT DETECT)
[2019-08-11 19:06] LABS: PCO2 Arterial 42.9 mmHg (35-45); PO2 Arterial 105 mmHg (80-100); pH Blood Arterial 7.38 (7.35-7.45)
--- NOTE | 2019-08-11 23:36 | NUR ---
ADMIT AND UPDATE: PT ARRIVED FROM ER VIA GURNEY. PT SLEEPING AT THAT TIME AND AWAKENED SLIGHTLY TO VOICE. VSS. LS SLIGHTLY COARS IN BILAT UPPER LOBES BUT DIFFICULT TO FULL ASSESS SINCE PT WAS SNORING. PT SATS 97% ON 4L VIA N/C. PT HAS BEEN SLEEPING SINCE ARRIVAL NOW AWAKENING EASILY. PT ORIENTED TO SELF, PLACE, AND DAY OF THE WEEK. PT WAS BROUGHT UP TO A FOWLERS POSITION AND GIVEN SIPS OF WATER AND APPLE JUICE, PT TOLERATED WELL. PT DENIED NEED TO VOID AND STATED, "I WENT PRETTY WELL A LITTLE WHILE AGO". PT COULD NOT RECALL WHETHER HE HAD RECEIVED THE FLU VACCINATION THIS SEASON. PT RETURN TO TO A LOW MAYES'S POSITION (HOB 30') WITH CALL LIGHT IN REACH. WILL CONTINUE TO MONITOR.
[2019-08-12] MEDS ORDERED: SARNA ANTI-ITC222 ML TOP (00:23)
--- NOTE | 2019-08-12 00:46 | NUR ---
PT ASSISTED UP TO BSC. PT STATED FALSE ALARM. WILL RETRY PRN.
--- NOTE | 2019-08-12 02:44 | NUR ---
SUDDEN SOB: PT TRYING TO GET COMFORTABLE IN BED. SUDDENLY BECAME PANICKED AND TRIED TO CLIMB OVER BEDRAIL. PT YELLED, "I CAN'T BREATH". PT FOUND TO HAVE N/C OFF AND PULLED APART OXYMETER CORD. PT SATS AT THAT TIME 79%. LS WITH CRACKLES AND SLIGHT EXP WHEEZES. RT NOTIFIED, PT PLACED ON BIPAP. DR. TRINIDAD NOTIFIED, ORDERS TO D/C MAINTENANCE FLUID AND GET STAT XRAY.
--- NOTE | 2019-08-12 02:49 | NUR ---
UPDATE: PT CURRENTLY ON BIPAP: 11/02, FiO2 45%. PT IN RECLINER POSITION AND STATED IS MORE COMFORTABLE. PT CALM AND RESTING. CALL LIGHT WITHIN REACH.
[2019-08-12 04:21] LABS: Hematocrit 36.7 % (37.0-53.0); Hemoglobin 11.6 g/dL (13.5-17.5); Mean Corpuscular HGB 29.6 pg (26.0-34.0); Mean Corpuscular HGB Conc 31.6 g/dL (31.5-36.5); Mean Corpuscular Volume 94 fL (80-100); Mean Platelet Volume 9.4 fL (9.1-12.4); Platelet Count 263 K/mm3 (150-400); RDW Coefficient Variation 13.6 % (11.7-14.2); RDW Standard Deviation 46.4 fL (35.1-46.3); Red Blood Cell Count 3.92 M/mm3 (4.30-5.90); White Blood Cell Count 36.63 K/mm3 (4.00-11.30)
[2019-08-12 04:42] LABS: Bun/Creatinine Ratio 19.6 (12.0-20.0); Calcium, Blood 8.3 mg/dL (8.5-10.1); Creatinine, Blood 2.04 mg/dL (0.60-1.20)
[2019-08-12 04:50] LABS: BAND PERCENT MAN 16 % (0-8); BASOPHILS PERCENT MAN 0 % (0-2); EOSINOPHILS PERCENT MAN 0 % (0-6); LYMPHOCYTES ABSOLUTE MAN 0.73 K/mm3 (0.84-5.20); LYMPHOCYTES PERCENT MAN 2 % (21-46); MONOCYTES ABSOLUTE MAN 1.09 K/mm3 (0.16-1.47); MONOCYTES PERCENT MAN 3 % (4-13); NEUTROPHILS ABSOLUTE MAN 34.79 K/mm3 (1.96-9.15); SEG NEUTROPHILS PERCENT MAN 79 % (41-73); TOTAL CELLS COUNTED 100
--- NOTE | 2019-08-12 06:43 | NUR ---
SHIFT SUMMARY: PT TOLERATING BIPAP. PT USES CALL LIGHT APPROPRIATELY. PT HAS BEEN UP TO BSC X2 SINCE IN ICU WITH ONE LARGE BM. PT USED ONE PERSON ASSIST. PT WAS SLIGHTLY UNSTEADY AND NEEDS ASSISTANCE. OTHERWISE PT RESTED WELL WEARING BIPAP AND IS CURRENTLY SLEEPING. CALL LIGHT WITHIN REACH.
--- NOTE | 2019-08-12 07:15 | NUR ---
ASSUMED CARE OF PT, WHO IS LYING IN BED WITH LABORED BREATHING, PULLED BIPAP MASK OFF STATING IT WAS HARD FOR HIM TO BREATHE. PLACED ON NC WITH 3 L/MIN, O2 SAT 94%. A&O X 3, PLEASANT BUT [place]. STATED HAS NO IMMEDIATE NEEDS. CALL LIGHT IN REACH.
--- NOTE | 2019-08-12 15:32 | NUR ---
AFTER URINARY INCONTINENCE X 1, PERFORMED BLADDER SCAN--0 ML FOUND RESIDUAL.
--- NOTE | 2019-08-12 16:38 | NUR ---
PT UPDATE/DR AT BEDSIDE: DR MALIN IN TO ASSESS PT. PT CURRENTLY SITTING AT THE SIDE OF THE BED VERY TACHYNPEIC FROM EXERTION. BIPAP MASK ADJUSTED AND PRESSURES TURNED DOWN. NOW PT APPEARS MORE COMFORTABLE BREATHING WITH BIPAP MASK IN PLACE. RR SLOWED DOEN IMMEDIATELY. SATS 99-100%. PT ATTEMPTED TO USE URINAL AGAIN WITHOUT SUCCESS, HOWEVER, UNABLE TO CAPTURE ANY RETENTION ON BLADDER SCANNER. PT DOES REPORT HE HAS HAD TO HAVE A FULEY PLACED R/T URINARY RETENTION.
--- NOTE | 2019-08-12 19:00 | NUR ---
INCREASED ANXIETY & DROP IN O2 SATS PT YELLING FOR HELP. ARRIVED TO FIND PT OFF O2, O2 SATS <80%, RESP RATE >40 AND SBP >200. O2 REAPPLIED BUT ANXIETY UNCHANGED BIPAP PLACED AND RT CALLED. DR MALIN IN, ORDERS FOR PRECEDEX AND STOP LR AT 100ML/HR. PRECEDEX INITIATED AT .2 THEN INCREASED TO .4 AND NOW 0.6MCG/KG/HR. RT CURRENTLY IN ROOM ADJUSTING BIPAP PRESSURES AND MASK. UPDATE TO PRIMARY RN RAMIRO.
--- NOTE | 2019-08-12 19:21 | NUR ---
SHIFT SUMMARY: PT ANXIOUS, KEEPS TAKING OFF O2 AND BIPAP; STARTED ON PRECEDEX. DR. MALIN AT BEDSIDE, CHANGED BIPAP SETTINGS SO PT MORE COMFORTABLE AND COMPLIANT. LUNG SOUNDS IMPROVED FROM START OF SHIFT, IS MOVING MORE AIR AND COUGHING LESS. HYPERTENSIVE WHEN ANXIOUS, HYDRALAZINE GIVEN X 1. USING URINAL WITH MAX ASSISTANCE, NEEDS TO STAND TO URINATE. CONTACT PRECAUTIONS FOR CORONAVIRUS B. PLAN IS TO CONTINUE ABX.
--- NOTE | 2019-08-12 20:00 | NUR ---
ASSUMPTION OF CARE: PT ALERT. ON BIPAP WITH SETTINGS 14/8/35%. SPO2>90%. PT HAVING SOME DIFFICULTY BREATHING. TACHYPNEIC WITH RR IN THE 30S. BREATH SOUNDS CLEAR AND DIM IN BASES. IN SR. HR IN THE 90S,SBP 100S. PT HAS ORDERS FOR POWELL HOWEVER PT PREFERS TO USE URINAL AND IS ABLE TO DO SO WITH ASSISTANCE. 20G IN RFA AND 18G IN LAC. PRECEDEX AT 0.6. PT APPEARS ANXIOUS. CONSTANTLY PULLING BIPAP OFF CAUSING SPO2 TO DROP. ATTEMPTED TO EDUCATE PT TO WHY BIPAP WAS NECESSARY. STATED HE COULDN'T BREATHE HOWEVER PT IS MORE DYSPNEIC WITHOUT BIPAP ON. CONTINUED TO EDUCATE AND REDIRECT PT ON WEARING BIPAP. WILL CONTINUE TO MONITOR
--- NOTE | 2019-08-12 21:00 | NUR ---
PT CONTINUES TO PULL BIPAP AND SPO2 MONTIOR OFF. REDIRECTION AND EDUCATION USED WITH MINIMAL EFFECT. PT INCREASINGLY FRUSTRATED AND AGITATED OVER THE NEED TO USE BIPAP. ALLOWED PT TO USE NC FOR A SHORT TIME. O2 SATS HELD FOR A SHORT PERIOD AND THEN DROPPED. BIPAP PLACED BACK ON PT. WILL CONTINUE TO MONITOR AND REDIRECT PT.
--- NOTE | 2019-08-12 23:32 | NUR ---
PT CURRENTLY RESTING COMFORTABLY. BIPAP HAS BEEN IN USE AND PT HAS NOT NEEDED REDIRECTING CURRENTLY
[2019-08-13 03:37] LABS: BASOPHILS ABSOLUTE AUTO 0.02 K/mm3 (0.00-0.23); BASOPHILS PERCENT AUTO 0 % (0-2); EOSINOPHILS PERCENT AUTO 0 % (0-6); Hematocrit 34.9 % (37.0-53.0); IMMATURE GRAN PERCENT AUTO 1 % (0-1); LYMPHOCYTES ABSOLUTE AUTO 1.56 K/mm3 (0.84-5.20); LYMPHOCYTES PERCENT AUTO 7 % (21-46); MONOCYTES ABSOLUTE AUTO 1.26 K/mm3 (0.16-1.47); MONOCYTES PERCENT AUTO 6 % (4-13); Mean Corpuscular HGB 29.3 pg (26.0-34.0); Mean Corpuscular HGB Conc 31.5 g/dL (31.5-36.5); Mean Corpuscular Volume 93 fL (80-100); Mean Platelet Volume 9.9 fL (9.1-12.4); NEUTROPHILS ABSOLUTE AUTO 19.29 K/mm3 (1.96-9.15); NEUTROPHILS PERCENT AUTO 86 % (41-73); Platelet Count 222 K/mm3 (150-400); RDW Coefficient Variation 13.8 % (11.7-14.2); RDW Standard Deviation 47.1 fL (35.1-46.3); Red Blood Cell Count 3.75 M/mm3 (4.30-5.90); White Blood Cell Count 22.33 K/mm3 (4.00-11.30)
[2019-08-13 03:56] LABS: Albumin, Blood 2.4 g/dL (3.4-5.0); Anion Gap 8 mmol/L (6-16); Blood Urea Nitrogen 46 mg/dL (8-24); Bun/Creatinine Ratio 24.1 (12.0-20.0); CO2, Blood 24 mmol/L (21-32); Calcium, Blood 8.6 mg/dL (8.5-10.1); Chloride, Blood 104 mmol/L (98-108); Creatinine, Blood 1.91 mg/dL (0.60-1.20); Glomerular Filtration Rate 36 (60-); Glucose, Blood 242 mg/dL (70-99); Phosphorus, Blood 3.8 mg/dL (2.5-4.9); Potassium, Blood 4.8 mmol/L (3.5-5.5); Sodium, Blood 136 mmol/L (136-145)
--- NOTE | 2019-08-13 05:23 | NUR ---
PT HAD MINIMAL URINE OUTPUT. BLADDER SCAN DONE AND PT HAS 365MLS. WILL CONTINUE TO MONITOR
--- NOTE | 2019-08-13 06:00 | NUR ---
SHIFT SUMMARY: PT AT BEGINNING OF SHIFT PT AGITATED AND CONSTANTLY PULLING BIPAP AND SPO2 MONITOR OFF. PT REQUIRED A LOT OF EDUCATION AND REDIRECTION. PT EVENTAULLY WENT TO SLEEP AND REMAINED COMFORTABLE THROUGHOUT SHIFT, NOT PULLING AT ANY MEDICAL EQUIPMENT. VITALS STABLE. MINIMAL URINE OUTPUT THROUGHOUT SHIFT. BLADDER SCAN REVEALED 365MLS. NO BMS THIS SHIFT. LUNG SOUNDS CLEAR AND DIM IN BASES. PT REMAINS TACHYPNEIC THROUGHOUT SHIFT. 20G IN FRA AND 18G IN LAC. PRECEDEX INFUSING AT 0.5.
--- NOTE | 2019-08-13 07:15 | NUR ---
ASSUMED CARE OF PATIENT. IS SLEEPING WITH HOB ELEVATED TO ~40 DEGREES, WEARING BIPAP. AROUSES TO SPEECH. PRECEDEX INFUSING AT 0.3 MCG/KG/HR. DENIES PAIN AT THIS TIME.
--- NOTE | 2019-08-13 10:57 | NUR ---
PT BACK IN BED, ON 2 L/MIN NC. SATS HOVERED AROUND 89%, SO PLACED BACK ON BIPAP 04/03, 35 % FIO2, WITH RESULTING SATURATIONS > 90%. IS RESTING COMFORTABLY.
--- NOTE | 2019-08-13 12:00 | NUR ---
REASSESSMENT: A&O X 3, DROWSY. GOT UP TO RECLINER WITH 1 PERSON ASSIST, TOLERATED FOR ABOUT 1.5 HOURS. SINUS RHYTHM, SBP < 160, HR 60-80. SWITCHES BETWEEN 3 L/MIN NC WHILE AWAKE AND BIPAP WHEN SLEEPING. PRODUCTIVE COUGH, THICK PALE PINK SPUTUM. BREATH SOUNDS ARE COARSE BUT IS MOVING MORE AIR THAN YESTERDAY. C/O GENERALIZED ACHINESS, DECLINED OFFERED TYLENOL. APPETITE POOR HE HAS NO TEETH AND DOESN'T CARE FOR THE FOOD, GOOD FLUID INTAKE. RESTING COMFORTABLY.
--- NOTE | 2019-08-13 15:40 | NUR ---
PT INCONTINENT OF URINE X 1 WHILE SLEEPING. DENIES FEELING URGE TO URINATE. BLADDER SCAN SHOWS 429 ML URINE IN BLADDER. ATTENDS CHANGED.
--- NOTE | 2019-08-13 16:11 | NUR ---
REASSESSMENT: A&O X 3, MORE AWAKE NOW. DID NOT WANT TO EAT LUNCH. T MAX 100.3; GAVE TYLENOL. PT LAY ON HIS R SIDE FOR A COUPLE OF HOURS WHILE NAPPING THIS AFTERNOON. BREATH SOUNDS ARE MORE DIM IN RUL AND RML, PRODUCTIVE COUGH, PINK TINGED SPUTUM. BILATERAL DP AND PT PULSES AUSCULTATED BY DOPPLER. ALL WOUNDS ON BLE AND BUTTOCKS ARE CUAUHTEM[place], NO DRAINAGE. URINARY URGENCY, INCONTINENT X 2.
--- NOTE | 2019-08-13 17:26 | NUR ---
SHIFT SUMMARY: PT AWAKE AND ALERT, STATED HE'S FEELING MUCH BETTER. TEMP 99.7 AT LAST CHECK. APPETITE SLOWLY RETURNING. SPUTUM NOW WHITISH AND THINNER THAN IT WAS THIS AFTERNOON. PT SPOKE TO HIS GF BY PHONE EARLIER TODAY, GAVE HER UPDATE ON HIS CONDITION. O2 @ 3 L/MIN NC WHILE EATING, BACK ON BIPAP AFTER, SETTINGS 14/8, 30% FIO2, TOLERATING WELL. DENIES PAIN, N/V AT THIS TIME.
[2019-08-14 03:34] LABS: BASOPHILS ABSOLUTE AUTO 0.02 K/mm3 (0.00-0.23); BASOPHILS PERCENT AUTO 0 % (0-2); EOSINOPHILS PERCENT AUTO 0 % (0-6); Hematocrit 31.8 % (37.0-53.0); Hemoglobin 10.1 g/dL (13.5-17.5); IMMATURE GRAN ABSOLUTE AUTO 0.18 K/mm3 (0.00-0.10); IMMATURE GRAN PERCENT AUTO 1 % (0-1); LYMPHOCYTES ABSOLUTE AUTO 1.04 K/mm3 (0.84-5.20); LYMPHOCYTES PERCENT AUTO 6 % (21-46); MONOCYTES ABSOLUTE AUTO 0.59 K/mm3 (0.16-1.47); MONOCYTES PERCENT AUTO 4 % (4-13); Mean Corpuscular HGB 29.6 pg (26.0-34.0); Mean Corpuscular HGB Conc 31.8 g/dL (31.5-36.5); Mean Corpuscular Volume 93 fL (80-100); Mean Platelet Volume 9.9 fL (9.1-12.4); NEUTROPHILS ABSOLUTE AUTO 14.85 K/mm3 (1.96-9.15); NEUTROPHILS PERCENT AUTO 89 % (41-73); Platelet Count 224 K/mm3 (150-400); RDW Coefficient Variation 13.7 % (11.7-14.2); RDW Standard Deviation 46.5 fL (35.1-46.3); Red Blood Cell Count 3.41 M/mm3 (4.30-5.90); White Blood Cell Count 16.68 K/mm3 (4.00-11.30)
[2019-08-14 03:57] LABS: Albumin, Blood 2.3 g/dL (3.4-5.0); Anion Gap 8 mmol/L (6-16); Blood Urea Nitrogen 65 mg/dL (8-24); Bun/Creatinine Ratio 34.4 (12.0-20.0); CO2, Blood 24 mmol/L (21-32); Calcium, Blood 8.5 mg/dL (8.5-10.1); Chloride, Blood 103 mmol/L (98-108); Creatinine, Blood 1.89 mg/dL (0.60-1.20); Glomerular Filtration Rate 37 (60-); Glucose, Blood 240 mg/dL (70-99); Phosphorus, Blood 3.4 mg/dL (2.5-4.9); Potassium, Blood 4.5 mmol/L (3.5-5.5); Sodium, Blood 135 mmol/L (136-145)
--- NOTE | 2019-08-14 05:24 | NUR ---
SHIFT SUMMARY: VITALS STABLE. PT ALERT AND ORIENTED. PT WAS MORE COOPERATIVE DURING SHIFT AND AGREEABLE TO LEAVING BIPAP ON. PT ABLE TO SIT AND DANGLE AT EDGE OF BED AND USE URINAL. PT WAS ABLE TO REST QUIETLY THROUGHOUT SHIFT. NO ACUTE CHANGES. BIPAP SETTINGS 14/8/30%. SPO2 >90%. LUNG SOUNDS TIGHT AND DIM AT BASES. PT IS TACHYPNEIC AND SHALLOW BREATHING. ALSO BECOMES DYSPNEIC WITH ANY EXERTION. WILL PASS REPORT TO NEXT SHIFT
--- NOTE | 2019-08-14 07:10 | NUR ---
ASSUMED CARE OF PT. APPEARS TO BE RESTING COMFORTABLY. ON BIPAP / 30% FIO2, PULLING 500 TV, RR 22-32. AROUSES TO SPEECH, DENIES PAIN AT THIS TIME.
--- NOTE | 2019-08-14 12:00 | NUR ---
REASSESSMENT: PT A&O, IN GOOD SPIRITS, STATES HE'S FEELING BETTER. LUNGS CLEAR IN BILAT UPPER LOBES, STILL A BIT DIM IN BASES. BP AND HR WNL. GOT UP TO BSC WITH 1 PERSON ASSIST AND FWW, STILL QUITE WEAK. INCONTINENT OF URINE X 2. ERYTHEMA ON BLE HAS IMPROVED. APPETITE IMPROVED, BUT DOESN'T ALWAYS CARE FOR THE FOOD. ABLE TO REPOSITION SELF IN BED, UESING CALL LIGHT APPROPRIATELY.
--- NOTE | 2019-08-14 16:00 | NUR ---
REASSESSMENT: ON 5 L/MIN NC, OFF BIPAP AT THIS TIME. LUNG SOUNDS CLEAR IN UPPER LOBES, COARSE IN BILATERAL BASES, SOFTWARE ENGINEERING MANAGER COUGH. SINUS RHYTHM. ATTEMPTING TO NAP. HE SPOKE TO GF BY PHONE. ABLE TO STAND TO USE URINAL.
--- NOTE | 2019-08-14 18:32 | NUR ---
SHIFT SUMMARY: A&O, PLEASANT AND COOPERATIVE. TRIED TO NAP THROUGHOUT THE DAY TODAY. PO INTAKE ADEQUATE. OFF BIPAP, ON 5 L/MIN NC WITH SATS 88-94% DEPENDING ON ACTIVITY LEVEL. ABLE TO USE URINAL A LITTLE MORE, NO BM TODAY. DENIED PAIN, N/V. DANGLED AT BEDSIDE FOR DINNER. THINKS HE'S READY TO GO HOME. LIKELY STATUS CHANGE TOMORROW.
--- NOTE | 2019-08-14 20:10 | NUR ---
PATIENT UP TO SIDE OF BED TO VOID, BECOMING SOB WITH GETTING BACK TO BED, BIOX 88-89% ON 5L/NC. PLACED PATIENT BACK ON BIPAP SET AT 14/8 WITH FIO2 30% PATIENT CONTINUES TO FEEL SOB AND COUGHING BIOX 89-91% FIO2 INCREASED TO 40% AND PATIENT BECOMING MORE RELAXED AND BIOX NOW 94%
[2019-08-15 03:45] LABS: Albumin, Blood 2.4 g/dL (3.4-5.0); Anion Gap 6 mmol/L (6-16); Blood Urea Nitrogen 68 mg/dL (8-24); Bun/Creatinine Ratio 40.5 (12.0-20.0); CO2, Blood 25 mmol/L (21-32); Chloride, Blood 107 mmol/L (98-108); Creatinine, Blood 1.68 mg/dL (0.60-1.20); Glomerular Filtration Rate 42 (60-); Glucose, Blood 206 mg/dL (70-99); Phosphorus, Blood 3.2 mg/dL (2.5-4.9); Potassium, Blood 4.5 mmol/L (3.5-5.5); Sodium, Blood 138 mmol/L (136-145)
--- NOTE | 2019-08-15 05:55 | NUR ---
SUMMARY PATIENT SLEEPING WITH BIPAP IN PLACE SET AT 14/8 WITH FIO2 35%. ON 6L/NC USING HUMIDITY AND HI-FLOW NC WHEN OFF BIPAP. HARSH COUGH CONTINUES WITH OCCASIONAL THICK WHITE SPUTUM. PATIENT REPOSITIONING SELF IN BED FOR COMFORT. UP TO SIDE OF BED WITH 1 PERSON ASSIST USING WALKER TO USE URINAL. ATTENDS IN PLACE DUE TO OCCASIONAL INCONT OF URINE. PATIENT ANSWERING QUESTIONS APPROPRIATELY, OCCASIONALLY CONFUSED BUT REORIENTATION EASILY. NEEDING OCCASIONAL REMINDER TO NOT PULL OFF LINES AND CORDS WHILE SLEEPING
--- NOTE | 2019-08-15 06:55 | NUR ---
BEDSIDE REPORT WITH NOC RN. ASSUMED PT CARE.
--- NOTE | 2019-08-15 08:15 | NUR ---
PT MEDICATED PER EMAR. ASSESSMENT CHARTED.
--- NOTE | 2019-08-15 08:40 | NUR ---
PT AWAKE AND ALERT. BIPAP ON STANDBY. PT ON 7L HIGHFLOW. PT UP TO CHAIR FOR BREAKFAST AFTER BEDBATH. TAKES MEDS WITHOUT ISSUE. LINENS CHANGED.
--- NOTE | 2019-08-15 10:15 | NUR ---
PT DROPPED CUP OF MEDS. MEDICATED WITH SCHED MEDS PER EMAR. ASSISTED PT BACK TO BED, ASSISTED PT WITH URINAL.
--- NOTE | 2019-08-15 11:21 | NUR ---
PT ASLEEP. RESP EVEN AND NON LABORED.
--- NOTE | 2019-08-15 11:32 | NUR ---
DR LIPSCOMB TO ROOM FOR EVAL. PLAN TO CHANGE PT TO PCU STATUS. PHYSICAL THERAPY TO ROOM.
--- NOTE | 2019-08-15 12:45 | NUR ---
PT UP TO CHAIR WITH PT. LUNCH TRAY PROVIDED.
--- NOTE | 2019-08-15 13:00 | NUR ---
PT FINISHED WITH LUNCH, ASSITED BACK TO BED. CALL LIGHT IN REACH.
[2019-08-15 13:32] LABS: Vancomycin, Trough 14.2 ug/mL (5.0-10.0)
--- NOTE | 2019-08-15 13:40 | NUR ---
ASSISTED PT BACK TO BED, PUT PT ON BIPAP PER PT REQUEST. RESP TO ROOM FOR SCHED EVAL AND NEB. DECREASED FI02 TO 30%.
--- NOTE | 2019-08-15 14:15 | NUR ---
ASSISTED PT WITH URINAL. PT STILL HYPERTENSIVE, WILL MEDICATE OCCORDINGLY. VANC STARTED PER EMAR.
--- NOTE | 2019-08-15 17:07 | NUR ---
SHIFT SUMMARY PT REMAINS ALERT AND ORIENTED X3 THROUGHOUT SHIFT. PT ABLE TO ANSWER QUESTIONS APPROPRIATELY. PT HAS HAD NO C/O PAIN THIS SHIFT. PT WAS UP TO CHAIR X2 FOR BFAST AND LUNCH. TOLERATED ACTIVITY WITH SOB. REQUIRED BIPAP FOR A FEW HRS. PT PCU STATUS OF THIS MORNING. SKIN INTACT, DECENT APPETITE. NEED COVERAGE WITH INSULIN PER SLIDING SCALE BEFORE EACH MEAL. PT LUNG SOUNDS CLEAR TO UPPER, COARSE AND DIMINISHED TO BASES. PT USES WALKER FOR AMBULATION BUT IS VERY UNSTEADY. VANC GIVEN TODAY. NO BM TODAY, PT ABLE TO TELL WHEN HE NEEDS TO VOID AND USES CALL LIGHT. PT HAD BOUGHT OF HYPERTENSION THIS AFTERNOON REQUIRING DOSE OF IV HYDRALAZINE. WILL CONTINUE TO MONITOR FOR REMAINDER OF SHIFT. WILL REPORT TO KENYATTA BUTLER.
--- NOTE | 2019-08-15 17:24 | NUR ---
PT MEDICATED WITH SCHED LOVENOX. DINNER TRAY PROVIDED. PT NOT HUNGRY. TRAY AT BEDSIDE. VSS. BP IMPROVED.
--- NOTE | 2019-08-15 17:41 | NUR ---
ASSISTED PT SITTING UP FOR DINNER.
--- NOTE | 2019-08-15 18:16 | NUR ---
PT MEDICATED WITH 20MG LABETOLOL IV FOR EPISODES OF HTN. CARDIAC MONITORING CONTINUES. PT CALL LIGHT IN REACH.
--- NOTE | 2019-08-15 19:15 | NUR ---
ASSUME CARES:EDSIDE REPORT RECIEVED FROM KELLEE OFF GOING RN. MONITOR INTACT SHOWING WSINUS RHYTHMHEART RATE 70'-80'S. DENIES DISCOMFORT. LUNG SOUNDS CLEAR UPPER LOBES WITH DISTANT DECREASED SOUNDS IN THE BASES. REMAINS ON O2 AT 6L/MIN. PLACES SELF ON BIPAP 14/8 30%FIO2 WHEN READY TO SLEEP. ABDOMEN SOFT WITH BOWEL SOUNDS FOUR QUADSL. PEDAL PULSES PRESENT NO EDEMA NOTED. VOIDS JESSICA URINE PER URINAL WITH ASSIST. CONTINUE TO MONITOR AND REPORT CHANGE IN PATIENT CONDITION
[2019-08-16 03:57] LABS: BASOPHILS ABSOLUTE AUTO 0.03 K/mm3 (0.00-0.23); BASOPHILS PERCENT AUTO 0 % (0-2); EOSINOPHILS ABSOLUTE AUTO 0.03 K/mm3 (0.00-0.68); EOSINOPHILS PERCENT AUTO 0 % (0-6); Hematocrit 33.5 % (37.0-53.0); Hemoglobin 10.3 g/dL (13.5-17.5); IMMATURE GRAN ABSOLUTE AUTO 0.47 K/mm3 (0.00-0.10); IMMATURE GRAN PERCENT AUTO 4 % (0-1); LYMPHOCYTES ABSOLUTE AUTO 1.97 K/mm3 (0.84-5.20); LYMPHOCYTES PERCENT AUTO 15 % (21-46); MONOCYTES ABSOLUTE AUTO 1.12 K/mm3 (0.16-1.47); MONOCYTES PERCENT AUTO 8 % (4-13); Mean Corpuscular HGB 29.3 pg (26.0-34.0); Mean Corpuscular HGB Conc 30.7 g/dL (31.5-36.5); Mean Corpuscular Volume 95 fL (80-100); Mean Platelet Volume 10.1 fL (9.1-12.4); NEUTROPHILS ABSOLUTE AUTO 9.97 K/mm3 (1.96-9.15); NEUTROPHILS PERCENT AUTO 73 % (41-73); Platelet Count 273 K/mm3 (150-400); RDW Coefficient Variation 13.6 % (11.7-14.2); RDW Standard Deviation 47.8 fL (35.1-46.3); Red Blood Cell Count 3.52 M/mm3 (4.30-5.90); White Blood Cell Count 13.59 K/mm3 (4.00-11.30)
[2019-08-16 04:26] LABS: Albumin, Blood 2.3 g/dL (3.4-5.0); Anion Gap 7 mmol/L (6-16); Blood Urea Nitrogen 59 mg/dL (8-24); Bun/Creatinine Ratio 37.1 (12.0-20.0); CO2, Blood 27 mmol/L (21-32); Calcium, Blood 8.8 mg/dL (8.5-10.1); Chloride, Blood 108 mmol/L (98-108); Creatinine, Blood 1.59 mg/dL (0.60-1.20); Glomerular Filtration Rate 45 (60-); Glucose, Blood 109 mg/dL (70-99); Phosphorus, Blood 3.6 mg/dL (2.5-4.9); Potassium, Blood 4.1 mmol/L (3.5-5.5); Sodium, Blood 142 mmol/L (136-145)
--- NOTE | 2019-08-16 06:29 | NUR ---
SHIFT SUMMARY : RESTS QUIETLY WHEN UNDISTURBED.MONITOR INTADCT SHOWING SINUS RHYTHM. HEART RATE 70'S. OCC HARSH COUGH. BIPAP WHEN ASLEEP. TAKING A "BREAK FROM CPAP" O2 IN PLACE AT 6L/MIN. SPO2 89-96% ABDOMEN SSOFT WITH BOWEL SOUNDS FOUR QUADS. VOIDS JESSICA URINE PER URINAL WITH PLACEMENT ASSIST. CONTINUE TO MONITOR AND REPORT CHANGE IN PATIENT CONDITION
--- NOTE | 2019-08-16 18:59 | NUR ---
DAYSHIFT/TRANSFER SUMMARY PATIENT ALERT AND ORIENTED TO SELF AND LOCATION - SLOW TO RESPOND. PATIENT HAS PT/OT ORDERS. PATIENT HAS IN NS[facility] IN THE 70'S WITH NO CARDIAC EVENTS THUS FAR POST TRANSFER TO PCU. PATIENT REMAINS ON 6 LPM HIGH FLOW CANNULA WITH CONTINUOUS BIOX IN PLACE. CALL LIGHT W/I REACH. REPORT TO NOC SHIFT CARRIE DASH.
--- NOTE | 2019-08-17 06:52 | NUR ---
SHIFT SUMMARY: PATIENT SLEPT ALL SHIFT WITH NC ON, DOES NOT WANT BIPAP ON. PATIENTVSS, CALL LIGHT WITHIN REACH, EXIT ALARM ON.
--- NOTE | 2019-08-17 08:00 | NUR ---
PT LAYING IN BED AWAKE A/OX3, FORGETFUL AT TIMES, PLEASANT AND COOPERTIVE WITH CARE, FOLLOWS COMMANDS WELL, DENIES PAIN, LUNGS ARE COURSE T/O, DIM IN BASES, OCC WET COUGH NOTED, BRINGING UP SOME WHITE PHLEM, HE IS ON 8 LITERS 02 VIA HIGH FLOW N/C, RESP EVEN AND UNLABORED AT REST, HRR, TELE IN PLACE RUNNING SR PER MONITOR, SEE STRIP, +1 EDEMA NOTED TO B/L LE, PPP+1, CAP REFILL <3SEC, VS STABLE, AFEBRILE, IV SITES ARE CLEAR AND PATENT, BTX 4, ABD ROUND SOFT NONTENDER, VOIDS WITHOUT DIFF, INCONT AT TIMES, ATTENDS IN PLACE, SKIN C/W/D, MAEW, USES A FRONT WHEELED WALKER TO AMBUALTE, juan, call light in reach.
--- NOTE | 2019-08-17 13:30 | NUR ---
PT SLEEPING WHEN LEFT UNDISTURBED, HE HAD A SHOWER TODAY AND LINEN CHANGE. HE IS UNABLE TO USE THE URINAL IN BED WITHOUT SPILLING URINAL, SO WAS WET, TOLERATED SITTING IN THE CHAIR FOR A FEW HRS WELL. CALL LIGHT IN REACH.
[2019-08-17 13:54] LABS: Vancomycin, Trough 18.5 ug/mL (5.0-10.0)
--- NOTE | 2019-08-17 18:53 | NUR ---
PT CONTINUES TO BE SLEEPY, NEW IV WAS PLACED TO RFA, SITE IS CLEAR AND PATENT, STATES HE'S FEELING OK AT THIS TIME, WAS CHANGED TO SOLUMEDROL INSTEAD OF PREDNISONE, GAVE ONE DOSE OF LABATOLOL FOR HIGH B/P, NO FURTHER CHANGES THIS SHIFT, CALL LIGHT IN REACH.
--- NOTE | 2019-08-18 04:15 | NUR ---
SHIFT SUMMARY: PATIENT KEPT NC ON ALL NIGHT, MAINTAINED >90% O2 AT 7-8L/MIN. PATIENT ENCOURAGED TO PARTICIPATE IN ADLS IN PREPERATION FOR FUTURE DISCHARGE, NONCOMPLIANT THIS SHIFT. VSS, CALL LIGHT WITHIN REACH, BED LOW AND LOCKED WITH EXIT ALARM ON.
[2019-08-18 04:53] LABS: Hematocrit 35.1 % (37.0-53.0); Hemoglobin 10.9 g/dL (13.5-17.5); Mean Corpuscular HGB 29.6 pg (26.0-34.0); Mean Corpuscular HGB Conc 31.1 g/dL (31.5-36.5); Mean Corpuscular Volume 95 fL (80-100); Mean Platelet Volume 10.1 fL (9.1-12.4); Platelet Count 380 K/mm3 (150-400); RDW Coefficient Variation 13.3 % (11.7-14.2); RDW Standard Deviation 47.4 fL (35.1-46.3); Red Blood Cell Count 3.68 M/mm3 (4.30-5.90)
[2019-08-18 05:19] LABS: Bun/Creatinine Ratio 40.6 (12.0-20.0); Calcium, Blood 8.7 mg/dL (8.5-10.1); Creatinine, Blood 1.55 mg/dL (0.60-1.20); Potassium, Blood 5.2 mmol/L (3.5-5.5)
[2019-08-18 05:54] LABS: BAND PERCENT MAN 1 % (0-8); BASOPHILS ABSOLUTE MAN 0.14 K/mm3 (0.00-0.23); BASOPHILS PERCENT MAN 1 % (0-2); EOSINOPHILS PERCENT MAN 0 % (0-6); LYMPHOCYTES PERCENT MAN 7 % (21-46); METAMYELOCYTE ABSOLUTE MAN 0.14 K/mm3 (0.00-0.00); METAMYELOCYTE PERCENT MAN 1 % (0-0); MONOCYTES ABSOLUTE MAN 0.14 K/mm3 (0.16-1.47); MONOCYTES PERCENT MAN 1 % (4-13); MYELOCYTE ABSOLUTE MAN 0.42 K/mm3 (0.00-0.00); MYELOCYTE PERCENT MAN 3 % (0-0); NEUTROPHILS ABSOLUTE MAN 12.29 K/mm3 (1.96-9.15); PROMYELOCYTE ABSOLUTE MAN 0.14 K/mm3 (0.00-0.00); PROMYELOCYTE PERCENT MAN 1 % (0-0); SEG NEUTROPHILS PERCENT MAN 85 % (41-73); TOTAL CELLS COUNTED 100
--- NOTE | 2019-08-18 08:35 | NUR ---
PT UP IN RECLINER CHAIR, A/OX3, PLEASANT AND COOPERATIVE WITH CARE, FOLLOWS COMMANDS WELL, STATES HE HAD A GOOD NIGHT, AND IS FEELING PRETTY GOOD THIS AM, BREATHING IS BETTER, CURRENTLY ON 7 LITERS 02 VIA N/C, RESP EVEN AND UNLABORED, NO COUGH NOTED THIS AM, LUNGS ARE STILL COURSE T/O, DIM IN BASES, RESP EVEN AND UNLABORED, HRR, TELE IN PLACE RUNNING SR PER MONITOR, SEE STRIP, +1 EDEMA NOTED TO B/L LE, HAS MULTIPLE RED AREAS, SEE ASSESSMENT, BTX4, ABD LARGE SOFT NONTENDER, INCONT AT TIMES OF URINE, ATTEMPTS TO USE URINAL, BUT SPILLS IT WHEN IN BED, ATTENDS IN PLACE, MORRIS, USES A FRONT WHEELED WALKER TO AMBULATE, PT/OT WORKING WITH HIM, ASHLEY, CALL LIGHT IN REACH.
--- NOTE | 2019-08-18 11:16 | NUR ---
PT CONTINUES IN CHAIR, HAD COMPANY THIS AM, DOING OK. CALL LIGHT IN REACH.
--- NOTE | 2019-08-18 12:54 | NUR ---
B/P IS HIGH, WAITING FOR PT TO FINISH EATING THEN WILL PUSH SOME LABATOLOL. HEART RATE IN THE 80'S. CALL LIGHT IN REACH.
--- NOTE | 2019-08-18 18:33 | NUR ---
GAVE LABATALOL THIS EVENING FOR HIGH B/P, PT CONTINUES IN CHAIR, IS DOING WELL, HAVE TITRATED HIS O2 TO 4 LITERS, MAINTAINING SATS AT 95%, NO FURTHER CHANGES THIS SHIFT. CALL LIGHT IN REACH.
--- NOTE | 2019-08-18 22:15 | NUR ---
1950 PT RESTING COMFORTABLY IN BED; DROPLET ISOLATION MAINTAINED; FOLLOWING ALL SIMPLE VERBAL COMMANDS; BED ALARM APPLIED; DENIES PAIN OR NAUSEA. 2200 NO CHANGE IN ASSESSMENT.
[2019-08-19 04:40] LABS: Creatinine, Blood 1.61 mg/dL (0.60-1.20); Potassium, Blood 5.2 mmol/L (3.5-5.5)
--- NOTE | 2019-08-19 05:30 | NUR ---
SHIFT SUMMARY: 79 Y/O OBESE MALE RESTED COMFORTABLY ALL SHIFT; INCONTINENT BLADDER WITH ATTENDS CHANGED FREQUENTLY BY STAFF; ALERT AND ORIENTED X 4; ABLE TO FOLLOW ALL SIMPLE VERBAL COMMANDS; TOOK ALL MEDICATIONS 1-2 PILLS IN APPLESAUCE PER SPOON FULL; DENIES PAIN OR NAUSEA; BED ALARM APPLIED; BED LOW POSITION; CALL LIGHT AT SIDE; DROPLET PRECAUTIONS MAINTAINED.
--- NOTE | 2019-08-19 08:00 | NUR ---
pt sitting up in a chair watching tv, he is a/ox3, pleasant and cooperative with care, follows commands well, denies pain, states he is feeling good, breathing easier, o2 at 4 liters, sats are 97%, turned to 3 liters, lungs are still course, but less so, and a bit dim in bases, has a productive cough of white sputum, but is less volume than yesterday, hrr, tele in place running sr per monitor, see strip, no edema noted, ppp+2, cap refill <3sec, vs stable, afebrile, iv sites are clear and patent, btx4, abd large soft nontender, voids without diff in urinal, and will have incont episodes, skin has red le, otherwise c/d/i, maew, ambulates with front wheeled walker short distance, juan, call light in reach.
--- NOTE | 2019-08-19 18:05 | NUR ---
when pt was sleeping today he was mouth breathing and needed to turn o2 back to 4 liters which brought him up to 91%, but when awake he is 97% on 4, he is back to 3 liters at this time, no further changes this shift. call light in reach.
[2019-08-20 05:35] LABS: BASOPHILS ABSOLUTE AUTO 0.03 K/mm3 (0.00-0.23); BASOPHILS PERCENT AUTO 0 % (0-2); EOSINOPHILS ABSOLUTE AUTO 0.06 K/mm3 (0.00-0.68); EOSINOPHILS PERCENT AUTO 0 % (0-6); Hematocrit 36.4 % (37.0-53.0); Hemoglobin 11.3 g/dL (13.5-17.5); IMMATURE GRAN ABSOLUTE AUTO 0.58 K/mm3 (0.00-0.10); IMMATURE GRAN PERCENT AUTO 4 % (0-1); LYMPHOCYTES ABSOLUTE AUTO 3.78 K/mm3 (0.84-5.20); LYMPHOCYTES PERCENT AUTO 24 % (21-46); MONOCYTES ABSOLUTE AUTO 1.11 K/mm3 (0.16-1.47); MONOCYTES PERCENT AUTO 7 % (4-13); Mean Corpuscular HGB 29.1 pg (26.0-34.0); Mean Corpuscular Volume 94 fL (80-100); Mean Platelet Volume 9.9 fL (9.1-12.4); NEUTROPHILS ABSOLUTE AUTO 10.01 K/mm3 (1.96-9.15); NEUTROPHILS PERCENT AUTO 64 % (41-73); Platelet Count 445 K/mm3 (150-400); RDW Coefficient Variation 13.2 % (11.7-14.2); RDW Standard Deviation 45.8 fL (35.1-46.3); Red Blood Cell Count 3.88 M/mm3 (4.30-5.90); White Blood Cell Count 15.57 K/mm3 (4.00-11.30)
--- NOTE | 2019-08-20 05:36 | NUR ---
END OF SHIFT SUMMARY NO ACUTE CHANGES. VSS. LUNGS COARSE/DIM T/O. O2 TITRATED DOWN TO 2-3L NC. PT HAS BEEN RESTING T/O THE SHIFT. PT HAS BEEN VOIDING LARGE AMOUNTS AT DIFFERENT TIMES T/O THE NIGHT. AT TIMES IS CONTINENT AND OTHERS IS INCONTINENT OF URINE. WILL CONTINUE TO MONITOR UNTIL SHIFT CHNGE.
[2019-08-20 05:56] LABS: Bun/Creatinine Ratio 47.2 (12.0-20.0); Calcium, Blood 8.8 mg/dL (8.5-10.1); Creatinine, Blood 1.63 mg/dL (0.60-1.20); Potassium, Blood 4.5 mmol/L (3.5-5.5)
--- NOTE | 2019-08-20 09:00 | NUR ---
Received report from Noc RN. Patient sleepin with HOB at 30 degrees and will awake at breakfast. Aide got patient up to chair with one assist and is sitting up eating breakfast. He is on 3L via NC and sats mid 90%'s. He has trouble using urinal and spills in bed alot and has been sked to call for assistance. VSS see EMR.
--- NOTE | 2019-08-20 11:30 | NUR ---
Patient remains up in chair and calls appropriately to use urinal. He has required coverage for ac/hs meals. He denies any current pain or other needs. VSS see EMR. He has bilateral AC IV's and are flushed and SL'd and dressing intact and sites WNL's.
--- NOTE | 2019-08-20 13:30 | NUR ---
He remains up in chair and callas appropriately. Made him a mocha per request and started napping. He tolerated lunch with out difficulty. No significant changes.
--- NOTE | 2019-08-20 15:30 | NUR ---
Patient receive bath in chair from aid and all linen changed. Patient remains on 3L O2 ans sats mid 90%'s. He denies any need for intervention or needs. No significant changes.
--- NOTE | 2019-08-20 17:30 | NUR ---
Patient back in bed and resting, aid went in room and set up dinner. Patient tolertating 3L O2 and sats mid 90%'s. Dr By earlier and is now med no tele. and he has been doing well with nno significant changes.
[2019-08-21 04:30] LABS: Bun/Creatinine Ratio 48.7 (12.0-20.0); Calcium, Blood 8.8 mg/dL (8.5-10.1); Creatinine, Blood 1.56 mg/dL (0.60-1.20)
--- NOTE | 2019-08-21 06:11 | NUR ---
END OF SHIFT SUMMARY NO QACUTE CHANEGS THIS SHIFT. VSS EXCEPT HTN, COVERED BY MEDS PER EMAR. LUNGS STILL COARSE BUT CLEARER THAN LAST SHIFT. PT HAS HAD LESS INCONTINENT VOIDS THIS SHIFT THAN LAST. PT HAS BEEN RESTING QUIETLY FOR MAJORITY OF SHIFT. WILL CONTINUE TO MONITOR UNTIL SHIFT CHANGE.
--- NOTE | 2019-08-21 15:09 | NUR ---
PCU TRANSFER TO MEDICAL ROOM 303 PATIENT LEFT UNIT VIA WHEELCHAIR TO ROOM 303 - REPORT GIVEN TO ARLIN, MEDICAL FLOOR RN. PATIENT DENIED ANY PAIN OR DISCOMFORT AT TIME OF TRANSFER. VSS. RESP E/U ON 2 LPM VIA NC. PATIENT ALERT AND ORIENTED X4. MED NO TELE STATUS. BELONGINGS SENT WITH PATIENT.
--- NOTE | 2019-08-21 20:21 | NUR ---
SHIFT SUMMARY 1450 RECEIVED PT TO RM 303 VIA W/C FROM PCU 7. RECEIVED REPORT FROM VILMA BUTLER. PT LIVING AT [facility]. ADMITTED FOR PNM AND HYPOXIC RESP FAILURE. PT IMPROVING AND HOPES TO D/C HOME TOMORROW. PT IS A&O, PLEASANT AND CO-OP. PER REPORT, SBA WITH FWW TO BTHRM, BUT ALSO USES URINAL AT BS WITH ASSIST. PT HAS CALLED A NUMBER OF TIMES FOR ASSIST WITH URINAL, BUT HAS MOSTLY BEEN INCONTINENT OF URINE ALL DAY. PER REPORT, PT HAS BEEN ON 2L O2, VIA NC, BUT IS NORMALLY ON RA. PT HAS NOT WANTED TO LEAVE NC ON MOST OF THE TIME THOUGH; BIOX ON RA HAS BEEN 89%. PT WITH HX OF IDDM, HTN, COPD, AND CKD. NO C/O PAIN. CALL LT IN REACH.
--- NOTE | 2019-08-22 07:35 | NUR ---
SHIFT SUMMARY AOX4. THIS AM PT HAD TAKEN OFF O2 & I CHECKED HIS SPO2 ON RA IT WAS 82%, 2L O2 PLACED BACK ON PT. E/U RESPIRATIONS, DENIES DYSPNEA @REST. REPORTS PAIN IN L HIP & MEDICATED 1X W/TYLENOL, STATES RELIEF. DENIES N/V. CBG @HS WAS 237. PT HAS BEEN INCONTINENT OF URINE T/O NIGHT & HAS NEEDED ASSISTANCE W/REPOSITIONING. CALL LIGHT IN REACH.
[2019-08-22] MEDS ORDERED: ALBU90OI INH (09:24)
[2019-08-22] MEDS ORDERED: GUAI600T33 PO (09:24)
[2019-08-22] MEDS ORDERED: HYDR10 PO (09:25)
[2019-08-22] MEDS ORDERED: TORSE20 PO (09:27)
[2019-08-22] MEDS ORDERED: INSR10I SC (09:27)
[2019-08-22] MEDS ORDERED: ONDA4ODT MM (09:27)
--- NOTE | 2019-08-22 15:41 | NUR ---
REVIEW D'C W/PATIENT AND D'C FAXED TO [facility]. PATIENT AWARE [facility] WILL HANDLE HIS MEDS. PATIENT GIVEN HARD COPY FOR NARCOTIC PAIN MED. IN W/C TO LOBBY TO WAIT FOR [facility] PICKUP. TREE KILLER AWARE PATIENT THERE FOR PICKUP.
== END 2019-08-22 15:33 | DRG 871 ==
LOC: ER 12:47 → PCU 18:14 → ICUW 18:14 → PCU 08-16 16:31 → MEDS 08-21 14:48
PROVIDERS: Hospitalist; Internal Medicine Pulmonary Disease; Pharmacist; Physician Assistant; ADMIT Family Medicine
DX: A41.89 Other specified sepsis (principal); J96.01 Acute respiratory failure with hypoxia; J18.0 Bronchopneumonia, unspecified organism; I50.31 Acute diastolic (congestive) heart failure; J12.89 Other viral pneumonia; J44.1 Chronic obstructive pulmonary disease with (acute) exacerbation; N17.9 Acute kidney failure, unspecified; I13.0 Hypertensive heart and chronic kidney disease with heart failure and stage 1 through stage 4 chronic kidney disease, or unspecified chronic kidney disease; L03.115 Cellulitis of right lower limb; F33.9 Major depressive disorder, recurrent, unspecified; J44.0 Chronic obstructive pulmonary disease with (acute) lower respiratory infection; B97.29 Other coronavirus as the cause of diseases classified elsewhere; R65.20 Severe sepsis without septic shock; N18.3 Chronic kidney disease, stage 3 (moderate); E78.5 Hyperlipidemia, unspecified; F03.90 Unspecified dementia, unspecified severity, without behavioral disturbance, psychotic disturbance, mood disturbance, and anxiety; E11.22 Type 2 diabetes mellitus with diabetic chronic kidney disease; E11.40 Type 2 diabetes mellitus with diabetic neuropathy, unspecified; Z79.4 Long term (current) use of insulin; Z87.891 Personal history of nicotine dependence; N40.1 Benign prostatic hyperplasia with lower urinary tract symptoms; E66.9 Obesity, unspecified
CPT/HCPCS: 0099U; 36415; 36600; 51701; 71045; 71046; 72192; 80048; 80053; 80069; 80202; 81001; 82803; 82947; 83605; 83735; 84145; 85025; 85610; 85730; 87040; 87070; 87081; 87086; 87205; 93005; 93010; 93306; 93971; 94640; 94660; 94761; 94762; 96361-59; 96365-59; 96367-59; 96375-59; 97110; 97116; 97162; 97166; 97530; 97535; 99285-25; A9270; A9270-GY; J0360; J0456; J0696; J1650; J1815; J1940; J2920; J2930; J3010; J3370; J7050; J7120; J7512

== ENCOUNTER 2020-06-09 13:41 | Inpatient (IN) | payer OTHER, MEDICARE ==
[~2020-06-09] VITALS: Ht 177.8 cm; Wt 113.9 kg
[~2020-06-09 13:41] MED LIST changes: +ALBU90OI INH; +GUAI600T33 PO; +HYDR10 PO; +INSR10I SC; +ONDA4ODT MM; +SARNA ANTI-ITC222 ML TOP; +TORSE20 PO; +Vsl#3 Capsule1 EACH PO
[2020-06-09 14:43] LABS: BASOPHILS ABSOLUTE AUTO 0.02 K/mm3 (0.00-0.23); BASOPHILS PERCENT AUTO 0 % (0-2); EOSINOPHILS ABSOLUTE AUTO 0.02 K/mm3 (0.00-0.68); EOSINOPHILS PERCENT AUTO 0 % (0-6); Hematocrit 37.9 % (37.0-53.0); Hemoglobin 12.2 g/dL (13.5-17.5); IMMATURE GRAN ABSOLUTE AUTO 0.06 K/mm3 (0.00-0.10); IMMATURE GRAN PERCENT AUTO 1 % (0-1); LYMPHOCYTES PERCENT AUTO 16 % (21-46); MONOCYTES ABSOLUTE AUTO 0.74 K/mm3 (0.16-1.47); MONOCYTES PERCENT AUTO 9 % (4-13); Mean Corpuscular HGB Conc 32.2 g/dL (31.5-36.5); Mean Corpuscular Volume 87 fL (80-100); Mean Platelet Volume 10.5 fL (9.1-12.4); NEUTROPHILS ABSOLUTE AUTO 6.06 K/mm3 (1.96-9.15); NEUTROPHILS PERCENT AUTO 74 % (41-73); Platelet Count 386 K/mm3 (150-400); RDW Coefficient Variation 13.8 % (11.7-14.2); RDW Standard Deviation 44.7 fL (35.1-46.3); Red Blood Cell Count 4.36 M/mm3 (4.30-5.90)
[2020-06-09 15:46] LABS: Albumin, Blood 2.6 g/dL (3.4-5.0); Albumin/Globulin Ratio 0.6 (0.8-1.8); Bilirubin, Total 0.4 mg/dL (0.1-1.0); Bun/Creatinine Ratio 31.1 (12.0-20.0); Calcium, Blood 8.5 mg/dL (8.5-10.1); Creatinine, Blood 2.06 mg/dL (0.60-1.20); Globulin, Blood 4.4 g/dL (2.2-4.0); Potassium, Blood 3.5 mmol/L (3.5-5.5)
[2020-06-09 16:19] LABS: Source, Urine Clean Catch
[2020-06-09 16:22] LABS: Appearance, Urine Clear (Clear); Bilirubin, Urine Neg (Neg); Blood, Urine Neg (Neg); Color, Urine Yellow (P-Yellow); Glucose Qualitative, Urine Neg (Neg); Ketones, Urine Neg (Neg); Leukocyte Esterase, Urine Neg (Neg); Nitrite, Urine Neg (Neg); Protein, Urine 2+ (Neg); Urobilinogen, Urine NORM (Normal)
[2020-06-09 16:31] LABS: Amorphous Light (0-Heavy); Bacteria Few /hpf; Hyaline Casts 0-2 /lpf (0-2); Red Blood Cells, Urine Not Seen /hpf (0-2); Squamous Epithelial Cells Rare /hpf (Few); White Blood Cells, Urine 0-2 /hpf (0-5)
[2020-06-09] MEDS ORDERED: ACET500 PO (18:02)
[2020-06-09] MEDS ORDERED: Aspirin EC81 MG PO (18:02)
[2020-06-09] MEDS ORDERED: AMLODIPINE BES2.5 MG PO (18:02)
[2020-06-09] MEDS ORDERED: ATOR10 PO (18:02)
[2020-06-09] MEDS ORDERED: ACIDOPHILUS1 EAC3 PO (18:02)
[2020-06-09] MEDS ORDERED: Flonase 0.05% N16 GM (18:03)
[2020-06-09] MEDS ORDERED: FERSU300 PO (18:03)
[2020-06-09] MEDS ORDERED: GABA300 PO (18:03)
[2020-06-09] MEDS ORDERED: HYDCHL25 PO (18:04)
[2020-06-09] MEDS ORDERED: BASAGLAR K100 UNIT/1 SC (18:05)
[2020-06-09] MEDS ORDERED: NOVOLOG100 UNIT/2 SC ×2 (18:05)
[2020-06-09] MEDS ORDERED: DAILY-VITE1 EACH PO (18:07)
[2020-06-09] MEDS ORDERED: MELA3 PO (18:07)
[2020-06-09] MEDS ORDERED: NYSTOP15 GM TOP (18:07)
[2020-06-09] MEDS ORDERED: ROPI1 PO (18:08)
[2020-06-09] MEDS ORDERED: SERT100 PO (18:08)
[2020-06-09] MEDS ORDERED: TAMS.4ER PO (18:08)
[2020-06-09] MEDS ORDERED: SENN187 PO (18:08)
[2020-06-09] MEDS ORDERED: ASCO500 PO (18:09)
[2020-06-09] MEDS ORDERED: Vitamin D2000 UNIT PO (18:09)
[2020-06-09] MEDS ORDERED: Vitamin B-121000 MCG PO (18:09)
--- NOTE | 2020-06-09 18:44 | NUR ---
REPORT RECIEVED FROM ACRRIE ARREGUIN ED AT 2310
--- NOTE | 2020-06-10 05:15 | NUR ---
LABORER LANDSCAPE SUMMARY PT ADMITTED FROM ED THIS SHIFT, PT A&OX3, ABLE TO MAKE NEEDS KNOWN. FORGETFUL AT TIMES, PLEASANT AND COOPERATIVE TO CARE. NO C/O PAIN OR ANY DISCOMFORT THIS SHIFT. PT ON O2 2LPM VIA NC, ON CONT BIOX, SATS AT 90-94%. NO C/O CP, SOB, OR N&V. WOUND CARE TO BLE PROVIDED THIS SHIFT, PREVENTATIVE DRESSING TO COCCYX IN PLACE. PT 2P MAX ASSIST. INCONTINENT, ATTENDS IN PLACE. PT CALM AND RESTED IN BED T/O SHIFT. BED ALARM ON, BED AT LOWEST POSITION, CALL LIGHT WITHIN REACH.
[2020-06-10 05:58] LABS: BASOPHILS ABSOLUTE AUTO 0.01 K/mm3 (0.00-0.23); BASOPHILS PERCENT AUTO 0 % (0-2); EOSINOPHILS ABSOLUTE AUTO 0.08 K/mm3 (0.00-0.68); EOSINOPHILS PERCENT AUTO 1 % (0-6); Hematocrit 36.7 % (37.0-53.0); Hemoglobin 11.6 g/dL (13.5-17.5); IMMATURE GRAN ABSOLUTE AUTO 0.09 K/mm3 (0.00-0.10); IMMATURE GRAN PERCENT AUTO 1 % (0-1); LYMPHOCYTES PERCENT AUTO 16 % (21-46); MONOCYTES ABSOLUTE AUTO 0.67 K/mm3 (0.16-1.47); MONOCYTES PERCENT AUTO 10 % (4-13); Mean Corpuscular HGB 27.6 pg (26.0-34.0); Mean Corpuscular HGB Conc 31.6 g/dL (31.5-36.5); Mean Corpuscular Volume 87 fL (80-100); Mean Platelet Volume 9.8 fL (9.1-12.4); NEUTROPHILS ABSOLUTE AUTO 4.98 K/mm3 (1.96-9.15); NEUTROPHILS PERCENT AUTO 72 % (41-73); Platelet Count 335 K/mm3 (150-400); RDW Coefficient Variation 13.7 % (11.7-14.2); RDW Standard Deviation 43.8 fL (35.1-46.3); Red Blood Cell Count 4.21 M/mm3 (4.30-5.90); White Blood Cell Count 6.93 K/mm3 (4.00-11.30)
[2020-06-10 06:17] LABS: Bun/Creatinine Ratio 29.8 (12.0-20.0); Calcium, Blood 8.2 mg/dL (8.5-10.1); Creatinine, Blood 1.71 mg/dL (0.60-1.20); Potassium, Blood 3.9 mmol/L (3.5-5.5)
--- NOTE | 2020-06-10 18:13 | NUR ---
SHIFT SUMMARY: NO ACUTE CHANGES TO REPORT THIS SHIFT. PT A&O; CALM AND COOPERATIVE WITH CARE. NO C/O PAIN OR NAUSEA THIS SHIFT. O2 @ 2L; PT DESATS WHEN PLACED ON ROOM AIR. BLOOD SUGARS STABLE IN 100s. CHRONIC WOUNDS TO BLE. FLUIDS D/C'd THIS SHIFT. THIS NURSE UPDATED [facility] STAFF WITH PLAN OF CARE. WCMASSIEL.
--- NOTE | 2020-06-10 21:57 | NUR ---
1939 PT INCONTINENT LARGE AMOUNT URINE; ENTIRE GOWN/LINEN CHANGED; GROIN, PANUS AND SCROTUM--CREAM APPLIED TO GROIN AREA; ALERT AND ORIENTED X 2, ABLE TO FOLLOW SIMPLE VERBAL COMMANDS; DENIES PAIN.
--- NOTE | 2020-06-11 04:15 | NUR ---
SHIFT SUMMARY: 80 Y/O OBESE MALE HAD RESTLESS NIGHT ALL SHIFT; PT WEARING O2 AT 4L/M PER NASAL CANNULA WITH O2 SATS AVERAGING 90% VIA CONTINUOUS PULSE OXIMETER; ALERT AND ORIENTED X 2, ABLE TO FOLLOW SIMPLE VERBAL COMMANDS; PT HAS STAGE III WOUNDS NOTED TO BILATERAL LOWER EXTREMITIES WITH MEPLEX DRESSINGS APPLIED; DENIES PAIN OR NAUSEA, ABLE TO SPEAK IN LOW MONOTONE; BED ALARM APPLIED FOR COMFORT, BED LOW POSITION WITH CALL LIGHT AT SIDE.
--- NOTE | 2020-06-11 11:17 | NUR ---
HE HAS SLEPT OTHER THAN ASSESSMENT, BREAKFAST AND MEDICATION ADMINISTRATION. I APPLIED HYDROGEL AND FOAM DRESSINGS TO HIS R ANKLE, R HEEL AND L MAGDALENO. THE HEEL AND ANKLE HAVE DEEP ULCERS. THE MAGDALENO IS MORE LIKE AN ABRAISION. HE ALSO HAS MULTIPLE SCABS ON HIS SHINS. HIS GROIN AND INNER THIGHS ARE RED. HE GETS PO DIFLUCAN. HIS LEGS ARE STIFF AND HE HAS RESTLESS LEGS WHICH CAUSES HIM TO SLIDE HIS LEGS ALONG THE SHEETS A LOT. HE WAS INCONTINENT OF URINE, CHANGED BEFORE BREAKFAST AND REPOSITIONED. HE ATE A LITTLE BREAKFAST. HE DID NOT LIKE THE YOGURT AT ALL SO DIDN'T EAT IT. HE HAD TAKEN HIS O2 OFF. IT WAS ON THE FLOOR. WE THROUGH THE CANNULA AWAY. HE HAS BEEN ON RA SINCE AND HAS SATTED 90 TO 96%. CBG STABLE. HE IS IN DROPLET ISO FOR COVID AND CONTACT FOR MRSA.
--- NOTE | 2020-06-11 12:51 | NUR ---
HE WAS CHANGED FOR A LARGE STOOL AND URINE INCONTINENCE BEFORE LUNCH, ATE A SMALL AMT OF LUNCH AFTERWARDS AND NOW ROLLED OVER ON HIS L SIDE FOR A NAP. HE SLEPT ON HIS R SIDE EARLIER. HE MOVES INDEPENDENTLY IN HIS BED IF HE WANTS TO.
[2020-06-11] MEDS ORDERED: Diflucan100 MG PO (15:55)
--- NOTE | 2020-06-11 17:42 | NUR ---
HE HAS JUST BEEN DISCHARGED AT 1730 BACK TO [facility] BY W/C SANAM WITH BELONGINGS AND INSTRUCTIONS. I TRIED CALLING A REPORT BUT IT WAS AFTER 5 PM AND GOT AN OFFICE VOICEMAIL. I LEFT A MESSAGE TO CALL ME IF THEY GOT THE MSG THIS EVENING. HE WAS NOT HYPOGLYCEMIC TODAY. HIS HOME O2 EVAL WAS NEGATIVE. HE TRANSFERRED WELL TO THE CHAIR. HE DOES NOT FEEL WHEN HE IS WET. HE HAD 3 INCONTINENT BM'S TODAY AND 4 INCONTINENT VOIDS. HIS SKIN IS BEING TREATED WITH SYSTEMIC PO FLUCONAZOLE AND TOPICAL BABY POWDER. HE HAS MAINTAINED NORMAL SATS ALL DAY ON RA. NO C/O SOB.
== END 2020-06-11 17:30 | disposition home or self-care (01) | DRG 177 ==
LOC: ER 13:41 → MEDS 13:42
PROVIDERS: Physician Assistant; ADMIT Internal Medicine
PROC: 3E0333Z Introduction of Anti-inflammatory into Peripheral Vein, Percutaneous Approach (ICD-10-PCS; principal; 2020-06-10)
DX: U07.1 COVID-19 (principal); J12.89 Other viral pneumonia; J96.01 Acute respiratory failure with hypoxia; I13.0 Hypertensive heart and chronic kidney disease with heart failure and stage 1 through stage 4 chronic kidney disease, or unspecified chronic kidney disease; I50.32 Chronic diastolic (congestive) heart failure; N17.9 Acute kidney failure, unspecified; B37.0 Candidal stomatitis; Z66 Do not resuscitate; E11.22 Type 2 diabetes mellitus with diabetic chronic kidney disease; N18.30 Chronic kidney disease, stage 3 unspecified; Z79.4 Long term (current) use of insulin; J44.9 Chronic obstructive pulmonary disease, unspecified; E11.649 Type 2 diabetes mellitus with hypoglycemia without coma; F03.90 Unspecified dementia, unspecified severity, without behavioral disturbance, psychotic disturbance, mood disturbance, and anxiety; N40.0 Benign prostatic hyperplasia without lower urinary tract symptoms; E66.9 Obesity, unspecified; Z86.14 Personal history of Methicillin resistant Staphylococcus aureus infection; Z87.891 Personal history of nicotine dependence; N20.0 Calculus of kidney; E78.5 Hyperlipidemia, unspecified; F32.9 Major depressive disorder, single episode, unspecified; G25.81 Restless legs syndrome; Z68.37 Body mass index [BMI] 37.0-37.9, adult
CPT/HCPCS: 36415; 51701; 71045; 74176; 80048; 80053; 81001; 82947; 83036; 85025; 86850; 86900; 86901; 87070; 87075; 87205; 93005; 93010; 94761; 94762; 96372; 96374-59; 96376-59; 99285-25; A9270; A9270-GY; G0378; J1650

== ENCOUNTER 2020-07-21 08:41 | Inpatient (IN) | payer OTHER, MEDICARE ==
[~2020-07-21] VITALS: Ht 180.3 cm; Wt 117.9 kg
[~2020-07-21 08:41] MED LIST changes: +ACIDOPHILUS1 EAC3 PO; +AMLODIPINE BES2.5 MG PO; +DAILY-VITE1 EACH PO; +Diflucan100 MG PO; +GABA300 PO; +NOVOLOG100 UNIT/2 SC; +NYSTOP15 GM TOP; +Vitamin B-121000 MCG PO
[2020-07-21 09:25] LABS: BASOPHILS ABSOLUTE AUTO 0.04 K/mm3 (0.00-0.23); BASOPHILS PERCENT AUTO 0 % (0-2); EOSINOPHILS ABSOLUTE AUTO 0.33 K/mm3 (0.00-0.68); EOSINOPHILS PERCENT AUTO 3 % (0-6); Hematocrit 35.8 % (37.0-53.0); Hemoglobin 11.2 g/dL (13.5-17.5); IMMATURE GRAN ABSOLUTE AUTO 0.05 K/mm3 (0.00-0.10); IMMATURE GRAN PERCENT AUTO 1 % (0-1); LYMPHOCYTES ABSOLUTE AUTO 2.04 K/mm3 (0.84-5.20); LYMPHOCYTES PERCENT AUTO 21 % (21-46); MONOCYTES ABSOLUTE AUTO 0.82 K/mm3 (0.16-1.47); MONOCYTES PERCENT AUTO 8 % (4-13); Mean Corpuscular HGB 27.8 pg (26.0-34.0); Mean Corpuscular HGB Conc 31.3 g/dL (31.5-36.5); Mean Corpuscular Volume 89 fL (80-100); Mean Platelet Volume 10.2 fL (9.1-12.4); NEUTROPHILS ABSOLUTE AUTO 6.46 K/mm3 (1.96-9.15); NEUTROPHILS PERCENT AUTO 66 % (41-73); Platelet Count 289 K/mm3 (150-400); RDW Coefficient Variation 14.6 % (11.7-14.2); RDW Standard Deviation 47.6 fL (35.1-46.3); Red Blood Cell Count 4.03 M/mm3 (4.30-5.90); White Blood Cell Count 9.74 K/mm3 (4.00-11.30)
[2020-07-21 09:47] LABS: Albumin, Blood 2.8 g/dL (3.4-5.0); Albumin/Globulin Ratio 0.7 (0.8-1.8); Bilirubin, Total 0.6 mg/dL (0.1-1.0); Bun/Creatinine Ratio 17.5 (12.0-20.0); Calcium, Blood 8.5 mg/dL (8.5-10.1); Creatinine, Blood 1.43 mg/dL (0.60-1.20); Potassium, Blood 4.9 mmol/L (3.5-5.5); Total Protein, Blood 6.8 g/dL (6.4-8.2); Troponin I 0.026 ng/mL (0.000-0.040)
[2020-07-21 09:55] LABS: Magnesium, Blood 1.8 mg/dL (1.6-2.4); Phosphorus, Blood 3.2 mg/dL (2.5-4.9)
--- NOTE | 2020-07-21 15:00 | NUR ---
ASSUMED CARE: PT ARRIVED FROM ED ON RA. MOLDER PUNCH CALLED DR BRAY FOR TELE ORDER. NSR AT 88 AT THIS TIME. PT APPEARS SOB ON EXERTION. ON RA AT THIS TIME. DENIES FURTHER NEEDS OR CONCERNS
--- NOTE | 2020-07-21 16:50 | NUR ---
Echocardiogram completed.
--- NOTE | 2020-07-21 17:57 | NUR ---
SHIFT SUMMARY: PT DENIES CP. NSR ON TELE. ON 2L WITH SLEEP FOR DESATURATION. SOB ON EXERTION. PT PLEASANT AND COOPERATIVE. NURSE FROM FACILITY CALLED FOR UPDATE AND PT GAVE PERMISSION TO SPEAK WITH HER. NURSE WAS GIVEN UPDATE. DRESSINGS TO BILATERAL HEELS CHANGED AND PHOTOS TAKEN. NO FURTHER NEEDS OR CONCERNS AT THIS TIME.
--- NOTE | 2020-07-21 19:40 | NUR ---
ASSUMED CARE RECEIVED BEDSIDE REPORT FROM GRETTARN; PT A&O X 4; BAD RIVER BAND; VSS; DENIES CHEST PAIN; O2 SATS >93 ON RA; PT STATES HE DOES NOT USE O2 AT HOME; STATES HE LIVES AT [facility] AND REQUESTS A CALL BE MADE TO OBTAIN MED REC AND FOR HIS APPARTMENT DOOR TO BE LOCKED; PHONED JAMIE GLEN AND FAX SENT OF MED REC AND SPOKE W/ TIFFANY WHOM STATED SHE WOULD GO LOCK PT'S DOOR; PT CURRENTLY SITTING AT BEDSIDE W/ SNACK; PT EDUCATED ON MEDICAL STATUS AND POTENTIAL OF BEING MOVED TONIGHT; CALL LIGHT IN REACH; BED IN LOWEST POSITION;
--- NOTE | 2020-07-21 22:25 | NUR ---
REPORT GIVEN TO CARRIE FENG; PT TRANSPORTED VIA WC W/ AID AND ALL PERSONAL BELONGINGS TO 359; NO DISTRESS NOTED; PT LAUGHING AND TEASING STAFF.
--- NOTE | 2020-07-21 22:40 | NUR ---
2230 REPORT RECEIVED FROM BETTYE RN VIA PCU; PT RECEIVED VIA WHEELCHAIR FROM PCU-6 WITH ALL PERSONAL BELONGINGS IN WHITE BAG; BED ALARM APPLIED FOR SAFETY; ALERT AND ORIENTED X 3; ABLE TO FOLLOW SIMPLE VERBAL COMMANDS; NO RESPIRATORY DISTRESS NOTED.
--- NOTE | 2020-07-22 04:08 | NUR ---
SHIFT SUMMARY: 80 Y/O MALE RESTED COMFORTABLY IN BED ALL SHIFT AFTER TRANSFER TO UNIT FROM PCU; PT ALERT AND ORIENTED X 4; PT REQUIRED ASSISTANCE WITH URINAL TO VOID AT TIMES BY STAFF HE TENDED JUMP OOB WITHOUT REQUESTING ASSISTANCE;; DENIES PAIN OR NAUSEA; BED ALARM APPLIED FOR SAFETY, BED LOW POSITION WITH CALL LIGHT AT SIDE.
[2020-07-22 05:17] LABS: BASOPHILS ABSOLUTE AUTO 0.04 K/mm3 (0.00-0.23); BASOPHILS PERCENT AUTO 0 % (0-2); EOSINOPHILS ABSOLUTE AUTO 0.38 K/mm3 (0.00-0.68); EOSINOPHILS PERCENT AUTO 4 % (0-6); Hematocrit 36.9 % (37.0-53.0); Hemoglobin 11.2 g/dL (13.5-17.5); IMMATURE GRAN ABSOLUTE AUTO 0.05 K/mm3 (0.00-0.10); IMMATURE GRAN PERCENT AUTO 1 % (0-1); LYMPHOCYTES ABSOLUTE AUTO 1.88 K/mm3 (0.84-5.20); LYMPHOCYTES PERCENT AUTO 20 % (21-46); MONOCYTES ABSOLUTE AUTO 0.86 K/mm3 (0.16-1.47); MONOCYTES PERCENT AUTO 9 % (4-13); Mean Corpuscular HGB 27.2 pg (26.0-34.0); Mean Corpuscular HGB Conc 30.4 g/dL (31.5-36.5); Mean Corpuscular Volume 90 fL (80-100); Mean Platelet Volume 10.2 fL (9.1-12.4); NEUTROPHILS ABSOLUTE AUTO 6.06 K/mm3 (1.96-9.15); NEUTROPHILS PERCENT AUTO 65 % (41-73); Platelet Count 273 K/mm3 (150-400); RDW Coefficient Variation 14.8 % (11.7-14.2); RDW Standard Deviation 47.8 fL (35.1-46.3); Red Blood Cell Count 4.12 M/mm3 (4.30-5.90); White Blood Cell Count 9.27 K/mm3 (4.00-11.30)
[2020-07-22 05:43] LABS: Albumin, Blood 2.9 g/dL (3.4-5.0); Albumin/Globulin Ratio 0.7 (0.8-1.8); Bilirubin, Total 0.6 mg/dL (0.1-1.0); Calcium, Blood 8.8 mg/dL (8.5-10.1); Creatinine, Blood 1.47 mg/dL (0.60-1.20); Magnesium, Blood 1.9 mg/dL (1.6-2.4); Potassium, Blood 4.4 mmol/L (3.5-5.5); Total Protein, Blood 6.9 g/dL (6.4-8.2)
--- NOTE | 2020-07-22 19:25 | NUR ---
SHIFT SUMMARY: NO ACUTE CHANGES TO REPORT THIS SHIFT. PT A&O; CALM AND COOPERATIVE WITH CARE. MEDICATED FOR LEG PAIN PER EMAR. TELE IN PLACE; SR c BBB @ 84 PER EVAPORATOR REPAIRER. DIURESIS CONTINUING. REPORT GIVEN TO ONCOMING RN.
[2020-07-23 05:06] LABS: Bun/Creatinine Ratio 17.4 (12.0-20.0); Calcium, Blood 8.9 mg/dL (8.5-10.1); Creatinine, Blood 1.72 mg/dL (0.60-1.20); Potassium, Blood 4.3 mmol/L (3.5-5.5)
--- NOTE | 2020-07-23 05:44 | NUR ---
SHIFT SUMMARY A/O, ABLE TO MAKE NEEDS KNOWN. COOPERATIVE WITH CARE. CALLS AND ANSWERS QUESTIONS APPROPRIATELY. NO C/O PAIN/DISCOMFORT. APPEARED TO REST MUCH OF THE NIGHT. URINAL AT BEDSIDE /c STRICT I/O's. TELE RUNNING SR @ 70 PER PCU CANNERY TENDER ENGINEER WITH NO EVENTS OVERNIGHT. BED REMAINS IN LOWEST POSITION. CALL LIGHT AND BELONGINGS WITHIN REACH. CONTINUE WITH CURRENT PLAN OF CARE. REPORT TO ONCOMING RN.
[2020-07-23 11:50] LABS: Influenza A, PCR Negative (NEGATIVE); Influenza B, PCR Negative (NEGATIVE); Resp Syncytial Virus, PCR Negative (NEGATIVE); SARS-Cov-2 (COVID-19) PCR, MMC Positive (NEGATIVE)
[2020-07-23] MEDS ORDERED: ACET500 PO (12:03)
[2020-07-23] MEDS ORDERED: HYDR1TAB94 PO (12:04)
--- NOTE | 2020-07-23 12:59 | NUR ---
PRE ANGIO COVID SCREEN CAME BACK POSITIVE, [facility] NOTIIFED AND DR BAUTISTA CALLED BACK AND REQUESTED ANOTHER COVID TEST TO VERIFY. CALLED AND SPOKE WITH INFECTION CONTROL AND PT PLACED IN DROPLET ISOLATION. DR SIM NOTIFIED WELL. REPEAT COVID TEST COMPLETED AND PENDING RESULTS. PT DOES REPORT HE HAD COVID BEFORE BUT IT HAS BEEN A WHILE.
[2020-07-23 13:59] LABS: Influenza A, PCR Negative (NEGATIVE); Influenza B, PCR Negative (NEGATIVE); Resp Syncytial Virus, PCR Negative (NEGATIVE); SARS-Cov-2 (COVID-19) PCR, MMC Negative (NEGATIVE)
--- NOTE | 2020-07-23 17:02 | NUR ---
REPEAT COVID TEST CAME BACK NEGATIVE, SPOKE WITH INFECTION CONTROL AND AT THIS POINT PT WILL STAY IN ISOLATION UNTIL FURTHER NOTICE. DR SIM NOTIFIED. PER DR SIM ANGIO WILL NOW BE AN OUTPATIENT.
--- NOTE | 2020-07-23 17:03 | NUR ---
SHIFT SUMMARY- PT A/OX3, SBA UP IN ROOM WITH FWW. PT DENIES ANY COMPLAINTS T/O THE DAY. LS CLEAR/ DIMINISHED IN THE BASES, ON RA. PT DENIES ANY SOB T/O THE DAY. TELE SR AT 71. PLAN WAS FOR PT TO GO FOR ANGIO TODAY BUT PT COVID TEST CAME BACK POSITIVE, SECOND COVID NEGATIVE. AT THIS POINT ANGIO WILL BE OUTPATIENT. PT CONTINUES TO DIURESE WELL. PT VOIDS INDEP IN URINAL, OCCASIONAL INCONT. CHRONIC ULCERS TO BILAT HEELS AND ANKLES, DRESSINGS CHANGED TODAY. REDNESS AND EXCORIATION TO ABD FOLDS, BLEEDS AT TIMES. 1+ BLE EDEMA. NO OTHER ACUTE CHANGES THIS SHIFT.
--- NOTE | 2020-07-23 17:53 | NUR ---
DR SIM NOTIFIED OF ELEVATED D-DIMER OF 1.74, NO NEW ORDERS AT THIS TIME.
--- NOTE | 2020-07-24 04:53 | NUR ---
SHIFT SUMMARY- PT. A&O, PLEASANT AND COOPERATIVE WITH CARE. C/O HEAD AND NECK PAIN LAST NIGHT, MEDICATED PER EMAR 1X WITH GOOD EFFECT. PT. HAS CAMERON ANKLE AND HEEL WOUNDS, DSG IN PLACE. ABLE TO AMBULATE WITH SBA TO IN ROOM. PT. SLEPT ON/OFF DURING THE NIGHT, NO APPARENT DISTRESS NOTED. VSS. CALL LIGHT WITHIN REACH AND SIDE RAILS UPX2. WILL CONT TO MONITOR.
[2020-07-24 05:07] LABS: Bun/Creatinine Ratio 19.2 (12.0-20.0); Calcium, Blood 8.9 mg/dL (8.5-10.1); Creatinine, Blood 1.82 mg/dL (0.60-1.20); Potassium, Blood 4.4 mmol/L (3.5-5.5)
[2020-07-24] MEDS ORDERED: BUME1 PO (11:14)
--- NOTE | 2020-07-24 12:21 | NUR ---
DISCHARGE INSTRUCTIONS REVIEWED WITH PT, IV DC'D INTACT. RX FAXED TO [facility] BY LITHOGRAPHIC ETCHER. DRESSINGS TO BILAT FEET AND ANKLES CHANGED PRIOR TO DISCHARGE. ATTEMPTED TO CALL PCP AND HERB COUNSELOR FOR FOLLOW UP APPTS BUT NO ANSWERS. SPOKE WITH [facility] WHO WILL SCHEDULE FOLLOW UP APPTS. PT SITTING UP IN CHAIR AT THIS TIME, ASSISTED WITH GETTING PT DRESSED. PT AWAITING RIDE AT THIS TIME.
--- NOTE | 2020-07-24 13:52 | NUR ---
PT DISCHARGED BACK TO [facility] AT 1338 VIA [facility] W/C TRANSPORT.
== END 2020-07-24 13:38 | disposition home or self-care (01) | DRG 291 ==
LOC: ER 08:41 → ERHOLD 11:26 → MEDS 11:26 → PCU 14:31 → MEDS 22:30
PROVIDERS: Emergency Medicine; Internal Medicine; Internal Medicine Interventional Cardiology; Nurse Practitioner Acute Care; ADMIT Internal Medicine
DX: I13.0 Hypertensive heart and chronic kidney disease with heart failure and stage 1 through stage 4 chronic kidney disease, or unspecified chronic kidney disease (principal); I50.43 Acute on chronic combined systolic (congestive) and diastolic (congestive) heart failure; N18.30 Chronic kidney disease, stage 3 unspecified; J44.9 Chronic obstructive pulmonary disease, unspecified; K80.20 Calculus of gallbladder without cholecystitis without obstruction; Z20.822 Contact with and (suspected) exposure to COVID-19; Z66 Do not resuscitate; E66.01 Morbid (severe) obesity due to excess calories; F03.90 Unspecified dementia, unspecified severity, without behavioral disturbance, psychotic disturbance, mood disturbance, and anxiety; N40.0 Benign prostatic hyperplasia without lower urinary tract symptoms; E78.5 Hyperlipidemia, unspecified; E11.22 Type 2 diabetes mellitus with diabetic chronic kidney disease; E11.40 Type 2 diabetes mellitus with diabetic neuropathy, unspecified; G25.81 Restless legs syndrome; Z87.891 Personal history of nicotine dependence; Z88.0 Allergy status to penicillin; Z88.2 Allergy status to sulfonamides; Z88.8 Allergy status to other drugs, medicaments and biological substances; Z79.82 Long term (current) use of aspirin; Z79.4 Long term (current) use of insulin; Z68.36 Body mass index [BMI] 36.0-36.9, adult
CPT/HCPCS: 0241U; 36415; 71045; 76705; 80048; 80053; 82728; 82947; 83690; 83735; 83880; 84100; 84484; 85025; 85379; 93005; 93010; 93306; 96374; 96375; 99285-25; A9270; J1644; J1940

== ENCOUNTER 2020-07-31 17:44 | Inpatient (IN) | payer OTHER, MEDICARE ==
[~2020-07-31] VITALS: Ht 177.8 cm; Wt 119.2 kg
[~2020-07-31 17:44] MED LIST changes: +BUME1 PO
[2020-07-31 18:46] LABS: BASOPHILS ABSOLUTE AUTO 0.05 K/mm3 (0.00-0.23); BASOPHILS PERCENT AUTO 0 % (0-2); EOSINOPHILS ABSOLUTE AUTO 0.07 K/mm3 (0.00-0.68); EOSINOPHILS PERCENT AUTO 0 % (0-6); Hematocrit 39.1 % (37.0-53.0); IMMATURE GRAN ABSOLUTE AUTO 0.24 K/mm3 (0.00-0.10); IMMATURE GRAN PERCENT AUTO 1 % (0-1); LYMPHOCYTES ABSOLUTE AUTO 1.05 K/mm3 (0.84-5.20); LYMPHOCYTES PERCENT AUTO 4 % (21-46); MONOCYTES ABSOLUTE AUTO 1.07 K/mm3 (0.16-1.47); MONOCYTES PERCENT AUTO 4 % (4-13); Mean Corpuscular HGB Conc 30.7 g/dL (31.5-36.5); Mean Corpuscular Volume 88 fL (80-100); Mean Platelet Volume 10.6 fL (9.1-12.4); NEUTROPHILS ABSOLUTE AUTO 23.31 K/mm3 (1.96-9.15); NEUTROPHILS PERCENT AUTO 90 % (41-73); Platelet Count 297 K/mm3 (150-400); RDW Coefficient Variation 14.5 % (11.7-14.2); RDW Standard Deviation 46.5 fL (35.1-46.3); Red Blood Cell Count 4.45 M/mm3 (4.30-5.90); White Blood Cell Count 25.79 K/mm3 (4.00-11.30)
[2020-07-31 19:00] LABS: Albumin, Blood 3.4 g/dL (3.4-5.0); Albumin/Globulin Ratio 0.8 (0.8-1.8); Bilirubin, Total 0.5 mg/dL (0.1-1.0); Bun/Creatinine Ratio 19.2 (12.0-20.0); Calcium, Blood 8.6 mg/dL (8.5-10.1); Creatinine, Blood 1.51 mg/dL (0.60-1.20); Globulin, Blood 4.2 g/dL (2.2-4.0); Potassium, Blood 4.8 mmol/L (3.5-5.5); Total Protein, Blood 7.6 g/dL (6.4-8.2)
[2020-07-31 20:11] LABS: Influenza A, PCR Negative (NEGATIVE); Influenza B, PCR Negative (NEGATIVE); Resp Syncytial Virus, PCR Negative (NEGATIVE); SARS-Cov-2 (COVID-19) PCR, MMC Negative (NEGATIVE)
[2020-07-31 23:02] LABS: Influenza A, PCR Negative (NEGATIVE); Influenza B, PCR Negative (NEGATIVE); Resp Syncytial Virus, PCR Negative (NEGATIVE); SARS-Cov-2 (COVID-19) PCR, MMC Negative (NEGATIVE)
--- NOTE | 2020-08-01 00:20 | NUR ---
NEW ADMIT PT ARRIVED FROM ER VIA STRETCHER AND TRANSFERED TO BED W/ SLIDER SHEET; PT A&O X 3-4; DENIES CHEST PAIN; VSS; NSR VERIFIED ON TELE W/ AUDIO VISUAL DIRECTOR; TEMP 100.2; O2 SATS >92 ON 3L NC; PT STATES HE USES A FWW OR MOTORIZED WC AT BASELINE; DENIES CPAP USE AND STATES HE CAN NOT TOLERATE; ORIENTED TO UNIT SAFETY / PROTOCOL; CALL LIGHT IN REACH; BED IN LOWEST POSITION; BED ALARM ON FOR SAFETY.
[2020-08-01 04:59] LABS: Hemoglobin 11.4 g/dL (13.5-17.5); Mean Corpuscular HGB 27.3 pg (26.0-34.0); Mean Corpuscular HGB Conc 30.8 g/dL (31.5-36.5); Mean Corpuscular Volume 89 fL (80-100); Mean Platelet Volume 10.9 fL (9.1-12.4); Platelet Count 255 K/mm3 (150-400); RDW Coefficient Variation 14.9 % (11.7-14.2); RDW Standard Deviation 48.7 fL (35.1-46.3); Red Blood Cell Count 4.17 M/mm3 (4.30-5.90); White Blood Cell Count 40.96 K/mm3 (4.00-11.30)
[2020-08-01 05:36] LABS: Albumin, Blood 2.8 g/dL (3.4-5.0); Albumin/Globulin Ratio 0.7 (0.8-1.8); Bilirubin, Total 1.2 mg/dL (0.1-1.0); Bun/Creatinine Ratio 19.9 (12.0-20.0); Calcium, Blood 8.3 mg/dL (8.5-10.1); Creatinine, Blood 2.01 mg/dL (0.60-1.20); Potassium, Blood 5.3 mmol/L (3.5-5.5); Total Protein, Blood 6.8 g/dL (6.4-8.2)
[2020-08-01 06:06] LABS: BAND PERCENT MAN 22 % (0-8); BASOPHILS PERCENT MAN 0 % (0-2); EOSINOPHILS PERCENT MAN 0 % (0-6); LYMPHOCYTES ABSOLUTE MAN 1.63 K/mm3 (0.84-5.20); LYMPHOCYTES PERCENT MAN 4 % (21-46); MONOCYTES ABSOLUTE MAN 1.22 K/mm3 (0.16-1.47); MONOCYTES PERCENT MAN 3 % (4-13); NEUTROPHILS ABSOLUTE MAN 38.09 K/mm3 (1.96-9.15); SEG NEUTROPHILS PERCENT MAN 71 % (41-73); TOTAL CELLS COUNTED 100
--- NOTE | 2020-08-01 06:17 | NUR ---
SHIFT SUMMARY PT A&O X 3-4; VSS; NSR NOTED ON TELE W/ HR 90'S; O2 SATS >93 ON 3L NC; PT PULLS OFF WHEN SLEEPING AND C/O SOB; PT CALLS OUT; IMPULSIVE AT TIMES; CONTACT PRECAUTIONS FOR MRSA IN WOUNDS; CALL LIGHT IN REACH; BED IN LOWEST POSITION; BED ALARM ON FOR SAFETY; WILL CONTINUE TO MONITOR CLOSELY UNTIL HAND OFF TO DAY SHIFT RN.
[2020-08-01 13:21] LABS: Source, Urine Catheter
[2020-08-01 13:31] LABS: Appearance, Urine Hazy (Clear); Blood, Urine 5+ (Neg); Color, Urine Amber (P-Yellow); Glucose Qualitative, Urine Neg (Neg); Ketones, Urine 1+ (Neg); Leukocyte Esterase, Urine 1+ (Neg); Nitrite, Urine Neg (Neg); Protein, Urine 3+ (Neg); Urobilinogen, Urine 1+ (Normal)
[2020-08-01 13:57] LABS: Bilirubin, Urine 1+ (Neg)
[2020-08-01 14:00] LABS: U Amphetamine Screen Not Detected; U Barbituate Screen Not Detected; U Benzodiazapine Screen Not Detected; U Buprenorphine Screen Not Detected; U Cannabinoids Screen Not Detected; U Cocaine Screen Not Detected; U Methadone Screen Not Detected; U Methamphetamine Screen Not Detected; U Opiates Screen DETECTED; U Oxycodone Screen Not Detected; U Phencyclidine Screen Not Detected; U Propoxyphene Screen Not Detected
[2020-08-01 14:07] LABS: Red Blood Cells, Urine 50-100 /hpf (0-2)
[2020-08-01 14:08] LABS: Bacteria Many /hpf; Squamous Epithelial Cells Few /hpf (Few)
[2020-08-01 14:09] LABS: Hyaline Casts 0-2 /lpf (0-2)
--- NOTE | 2020-08-01 18:26 | NUR ---
PT SUMMARY: PT IS ALERT AND ORIENTED TO SELF, SURROUNDINGS, [place] FORGETFUL AT TIMES. VITALS HRR SR AT 80'S, BP SYSTOLIC 140'S. SATS ABOVE 95% ON 3L OF O2, HAS LOW GRADE FEVER WAS GIVEN TYLENOL X1 AND WAS EFFECTIVE. POWELL WAS ORDERED PT WAS NOT ABLE TO PRODUCE MUCH URINE UA COLLECTED PENDING CULTURE RESULT, URINE WAS DARK YELLOW IN COLOR. IV ABO VANCO AND CEFEPIME ORDERED FIRST DOSE INFUSED FOR THE SHIFT, DIET RESUMED TO CARDIAC DIET, PT WAS ABLE TO TOLERATE. PT ALSO WAS STARTED ON LR AT 125MLS/HR DUE TO ELEVATED LACTIC ACID FOR 2 DAYS POSS SEPSIS UTI TO WATCH RESPIRATORY/BREATHING FOR POSS FLUID OVERLOAD D/T CHF. PT STAYED IN BED MOST FOR THE REST OF THE SHIFT, NO OTHER ISSUES ENCOUNTERED, BED ALARM ON FOR SAFETY, CALLS APPROPRIATELY, CALL LIGHTS IN REACH WILL MONITOR
[2020-08-02 04:41] LABS: Hemoglobin 10.7 g/dL (13.5-17.5); Mean Corpuscular HGB 27.6 pg (26.0-34.0); Mean Corpuscular HGB Conc 31.5 g/dL (31.5-36.5); Mean Corpuscular Volume 88 fL (80-100); Mean Platelet Volume 10.4 fL (9.1-12.4); Platelet Count 208 K/mm3 (150-400); RDW Coefficient Variation 15.1 % (11.7-14.2); RDW Standard Deviation 48.5 fL (35.1-46.3); Red Blood Cell Count 3.87 M/mm3 (4.30-5.90); White Blood Cell Count 21.73 K/mm3 (4.00-11.30)
[2020-08-02 05:00] LABS: Anion Gap 8 mmol/L (6-16); Blood Urea Nitrogen 52 mg/dL (8-24); Bun/Creatinine Ratio 25.7 (12.0-20.0); CO2, Blood 23 mmol/L (21-32); Calcium, Blood 8.6 mg/dL (8.5-10.1); Chloride, Blood 107 mmol/L (98-108); Creatinine, Blood 2.02 mg/dL (0.60-1.20); Glomerular Filtration Rate 34 (60-); Glucose, Blood 147 mg/dL (70-99); Sodium, Blood 138 mmol/L (136-145); Vancomycin, Random 12.3 ug/mL
--- NOTE | 2020-08-02 06:06 | NUR ---
SHIFT SUMMARY PT A&OX4. SP02>92% ON 3L NC. TELEMETRY READS SR, HR 70'S-80'S. PT C/O OF 6/10 PENILE PAIN. POWELL CATHETER DRAINING DARK YELLOW URINE TO GRAVITY BUT ALSO LEAKED AND SOAKED THROUGH LINENS X2 THIS SHIFT. CATHETER REMOVED. PT HAD 2 INCONTINENT BM SMEARS THIS SHIFT. LR INFUSING PER EMAR. ABX INFUSED PER EMAR. PT REPOSISITONED SELF IN BED. CALL LIGHT IN REACH. BED IN LOWEST POSITION.
--- NOTE | 2020-08-02 18:06 | NUR ---
SUMMARYY- PT ALERT AND ORIENTED X3, FORGETFUL BUT KNOWS HIS LIMITS. PT SITS UP AT THE EDGE OF BED FOR MEALS AND GOT UP TO CHAIR FOR DINNER. DC'D IVF THIS AM LUNGS HAD FINE CRACKLES. OTHERWISE CLEAR. OXYGEN AT 3L, SATTING 98%. TURNED DOWN TO 2L. ANDRE DC'D THIS AM 0500, INCONT VOIDING, LG AMOUNTS IN ATTENDS. HAD INCONT BM TODAY WELL. REPORT CALLED TO [facility] FOR TX TO ROOM 313-2.
[2020-08-03 05:19] LABS: Hematocrit 32.3 % (37.0-53.0); Hemoglobin 10.2 g/dL (13.5-17.5); Mean Corpuscular HGB 27.9 pg (26.0-34.0); Mean Corpuscular HGB Conc 31.6 g/dL (31.5-36.5); Mean Corpuscular Volume 88 fL (80-100); Mean Platelet Volume 10.9 fL (9.1-12.4); Platelet Count 209 K/mm3 (150-400); RDW Standard Deviation 49.1 fL (35.1-46.3); Red Blood Cell Count 3.66 M/mm3 (4.30-5.90); White Blood Cell Count 12.23 K/mm3 (4.00-11.30)
[2020-08-03 05:44] LABS: Bun/Creatinine Ratio 32.8 (12.0-20.0); Calcium, Blood 8.6 mg/dL (8.5-10.1); Creatinine, Blood 1.86 mg/dL (0.60-1.20); Potassium, Blood 4.3 mmol/L (3.5-5.5)
--- NOTE | 2020-08-03 06:03 | NUR ---
PLEASANT ALERT AND COOPERATIVE. PATIENT HAD MINIMAL COMPLAINTS OF PAIN OR DISCOMFORT. HEELS AND RIGHT ANKLE REDRESSED AFTER CLEANSING WITH MEPILEX. PHOTOS ON CHART FROM PCU. SWALLOWS PILLS ONE AT TIME IN H20, OR 2 AT A TIME IN APPLESAUCE. PATIENT ABLE TO PARTICIPATE IN Q 2 HOUR POSITION CHANGES. SACRAL MEPILEX INTACT. TOLERATING IV ANTIBIOTICS WITHOUT DIFFICULTY
--- NOTE | 2020-08-03 19:20 | NUR ---
ASSUMED CARE RECEIVED REPORT FROM CARRIE GUEVARA. PT RESTING COMFORTABLY, IN NO ACUTE DISTRESS. NO ACUTE NEEDS ASSESSED AT THIS TIME. CALL LIGHT, POSSESSIONS IN REACH, BED IN LOW POSITION. CONTINUE TO MONITOR.
--- NOTE | 2020-08-03 19:28 | NUR ---
PT RESTING IN BED AFTER DINNER AND MED SANCHEZ. PT MADE NO COMPLAINTS OF PAIN THIS SHIFT. PT ON 2L OF O2 AND SATS REMINA IN THE 90'S. PT RECIEVED WOUND CARE TO BOTH HEALS AND R HEAL WRAPPED IN MEP/HEAL BANDAGE. IV SL AND WNL. STAFF WILL CONT. TO MONITOR FOR CHANGES.
--- NOTE | 2020-08-04 04:16 | NUR ---
SHIFT SUMMARY PT RESTING COMFORTABLY, IN NO ACUTE DISTRESS. SLEPT ON AND OFF T/O NIGHT, NO ACUTE CHANGES IN CONDITION NOTED. O2 SATS STABLE ON 2L/NC. PT DECLINES SOB, DYSPNEA. VS REVIEWED, WNL. CALLED APPROPRIATELY TO MAKE NEEDS KNOWN. DENIES FURTHER NEEDS AT THIS TIME. CALL LIGHT, POSSESSIONS IN REACH, BED IN LOW POSITION WITH ALARMS ON. CONTINUE TO MONITOR UNTIL REPORT GIVEN TO DAY RN.
[2020-08-04 05:07] LABS: Hematocrit 33.5 % (37.0-53.0); Hemoglobin 10.2 g/dL (13.5-17.5); Mean Corpuscular HGB 27.3 pg (26.0-34.0); Mean Corpuscular HGB Conc 30.4 g/dL (31.5-36.5); Mean Corpuscular Volume 90 fL (80-100); Mean Platelet Volume 10.8 fL (9.1-12.4); Platelet Count 212 K/mm3 (150-400); RDW Standard Deviation 50.2 fL (35.1-46.3); Red Blood Cell Count 3.73 M/mm3 (4.30-5.90); White Blood Cell Count 9.52 K/mm3 (4.00-11.30)
[2020-08-04 05:25] LABS: Anion Gap 6 mmol/L (6-16); Blood Urea Nitrogen 57 mg/dL (8-24); Bun/Creatinine Ratio 33.5 (12.0-20.0); CO2, Blood 25 mmol/L (21-32); Calcium, Blood 8.8 mg/dL (8.5-10.1); Chloride, Blood 109 mmol/L (98-108); Glomerular Filtration Rate 41 (60-); Glucose, Blood 133 mg/dL (70-99); Potassium, Blood 4.6 mmol/L (3.5-5.5); Sodium, Blood 140 mmol/L (136-145); Vancomycin, Trough 19.1 ug/mL (5.0-10.0)
--- NOTE | 2020-08-04 18:43 | NUR ---
PT RESTING IN BED AFTER DINNER. PT MAKES NO COMPLAINTS OF CHEST PAIN OR SOB AT THIS TIME, IV SL AND WNL, CALL LIGHT WITHIN REACH, BED IN LOW POSITION, ALERT AND ORIENTED X4. STAFF WILL CONT. TO MONITOR.
--- NOTE | 2020-08-04 19:25 | NUR ---
ASSUMED CARE RECEIVED REPORT FROM CARRIE GUEVARA. PT RESTING, NO ACUTE DISTRESS NOTED, RESPS E/U. RT AT THE BEDSIDE. NO ACUTE NEEDS ASSESSED AT. DENIES NEEDS. CALL LIGHT, POSSESSIONS IN REACH, BED IN LOW POSITION WITH ALARMS ON. CONTINUE TO MONITOR.
[2020-08-05 05:14] LABS: Bun/Creatinine Ratio 36.3 (12.0-20.0); Calcium, Blood 8.8 mg/dL (8.5-10.1); Creatinine, Blood 1.46 mg/dL (0.60-1.20); Potassium, Blood 4.5 mmol/L (3.5-5.5)
--- NOTE | 2020-08-05 06:50 | NUR ---
SHIFT SUMMARY PT ASLEEP, NO ACUTE DISTRESS NOTED. VS REVIEWED, WNL. PT HAS SLEPT T/O MUCH OF THE NIGHT. O2 SATS STABLE ON 2L/NC. PT REPOSITIONED SELF. NO ACUTE CHANGES IN CONDITION T/O NIGHT. DENIES NEEDS AT THIS TIME. CALL LIGHT, POSSESSIONS IN REACH, BED IN LOW POSITION WITH ALARMS ON. REPORT GIVEN TO CARRIE GUEVARA.
--- NOTE | 2020-08-05 19:28 | NUR ---
PT RESTING IN BED AFTER DINNER AND PM MEDICATION SANCHEZ. PT ALERT AND ORIENTED X4, LINES SL AND WNL, ON 2L O2 NC, AND MAKES NO COMPLAINTS OF PAIN OR SOB AT THIS TIME. BED IN LOW POSITION AN DCALL LIGHT WITHIN REACH. STAFF WILL CONT. TO MONITOR.
--- NOTE | 2020-08-06 05:47 | NUR ---
SHIFT SUMMARY PT ADMITTED FOR SEPSIS/PNEUMONIA, A/O X4, VSS, CONTACT ISOLATION FOR MRSA IN WOUNDS, 3 WOUNDS BLE ANKLES, HEALING, TOLERATING PO, PT REMOVED NC SOMETIMES REPORTING IT IRRITATES HIM AFTER A WHILE, ON CONT BIOX. PLAN TO DC TODAY TO [facility]. CALL LIGHT IN REACH, WILL CONTINUE TO MONITOR AND REPORT TO ONCOMING DAY RN.
[2020-08-06] MEDS ORDERED: Amlodipine Bes2.5 MG PO (09:25)
[2020-08-06] MEDS ORDERED: CEFD300 PO (14:54)
--- NOTE | 2020-08-06 15:57 | NUR ---
SUMMARY/DISCHARGE PT IS A/O X3, PLEASANT AFFECT. STATE CONTINUING FATIGUE/MALAISE HOWEVER IMPROVED FROM PREVIOUS DAYS. HACK IN TO SEE HIM, STATE PT MAY GO HOME TODAY, PT STATE FEELS READY FOR D/C HOME, PROVIDE ORDERS. SESSIONS CLERK & LIGHT [employer] DEFENSE ARTILLERY CREWMEMBER NOTIFY [facility] ASS[facility] L[facility] THAT HE WILL RETURN HOME TODAY. RT COMPLETE HOME O2 EVAL, OXYGEN ORDERED, PORTABLE BROUGHT TO HOSP. W/C VAN TRANSPORTATION ARRANGED FOR 1700. DEVULCANIZER HEAD PROVIDE BEDBATH.
== END 2020-08-06 16:51 | disposition home health service (06) | DRG 871 ==
LOC: ER 17:44 → PCU 21:06 → ER 21:06 → PCU 22:03 → ERHOLD 22:03 → PCU 23:14 → MEDS 08-02 18:47 → ENPENDDIS 08-06 15:14 → MEDS 08-06 16:51
PROVIDERS: Internal Medicine; Student in an Organized Health Care Education/Training Program; ADMIT Internal Medicine
DX: A40.9 Streptococcal sepsis, unspecified (principal); G92 Toxic encephalopathy; I50.43 Acute on chronic combined systolic (congestive) and diastolic (congestive) heart failure; J18.9 Pneumonia, unspecified organism; J96.01 Acute respiratory failure with hypoxia; I13.0 Hypertensive heart and chronic kidney disease with heart failure and stage 1 through stage 4 chronic kidney disease, or unspecified chronic kidney disease; N39.0 Urinary tract infection, site not specified; J44.0 Chronic obstructive pulmonary disease with (acute) lower respiratory infection; R65.20 Severe sepsis without septic shock; Z66 Do not resuscitate; Z20.822 Contact with and (suspected) exposure to COVID-19; N18.30 Chronic kidney disease, stage 3 unspecified; E11.22 Type 2 diabetes mellitus with diabetic chronic kidney disease; E66.01 Morbid (severe) obesity due to excess calories; E78.5 Hyperlipidemia, unspecified; F03.90 Unspecified dementia, unspecified severity, without behavioral disturbance, psychotic disturbance, mood disturbance, and anxiety; G62.9 Polyneuropathy, unspecified; N40.0 Benign prostatic hyperplasia without lower urinary tract symptoms; Z86.69 Personal history of other diseases of the nervous system and sense organs; Z87.891 Personal history of nicotine dependence; Z68.34 Body mass index [BMI] 34.0-34.9, adult
CPT/HCPCS: 0241U; 36415; 51703; 71045; 80048; 80053; 80202; 81001; 82140; 82947; 83605; 83880; 84145; 84484; 85025; 85027; 87040; 87086; 87147; 93005; 93010; 93308; 93321; 94761; 94762; 96365; 97110; 97116; 97162; 97165; 97530; 97535; 99285-25; A9270; J0692; J0696; J1650; J1956; J3370; J7050; J7120

== ENCOUNTER 2020-08-17 12:03 | Observation (INO) | payer OTHER, MEDICARE ==
[~2020-08-17] VITALS: Ht 180.3 cm; Wt 117.9 kg
[~2020-08-17 12:03] MED LIST changes: +CEFD300 PO
[2020-08-17 12:35] LABS: BASOPHILS ABSOLUTE AUTO 0.04 K/mm3 (0.00-0.23); BASOPHILS PERCENT AUTO 1 % (0-2); EOSINOPHILS ABSOLUTE AUTO 0.29 K/mm3 (0.00-0.68); EOSINOPHILS PERCENT AUTO 4 % (0-6); Hematocrit 35.2 % (37.0-53.0); Hemoglobin 10.9 g/dL (13.5-17.5); IMMATURE GRAN ABSOLUTE AUTO 0.03 K/mm3 (0.00-0.10); IMMATURE GRAN PERCENT AUTO 0 % (0-1); LYMPHOCYTES ABSOLUTE AUTO 1.78 K/mm3 (0.84-5.20); LYMPHOCYTES PERCENT AUTO 24 % (21-46); MONOCYTES ABSOLUTE AUTO 0.79 K/mm3 (0.16-1.47); MONOCYTES PERCENT AUTO 11 % (4-13); Mean Corpuscular HGB 27.5 pg (26.0-34.0); Mean Corpuscular Volume 89 fL (80-100); Mean Platelet Volume 10.5 fL (9.1-12.4); NEUTROPHILS PERCENT AUTO 60 % (41-73); Platelet Count 275 K/mm3 (150-400); RDW Coefficient Variation 14.7 % (11.7-14.2); RDW Standard Deviation 47.9 fL (35.1-46.3); Red Blood Cell Count 3.97 M/mm3 (4.30-5.90); White Blood Cell Count 7.33 K/mm3 (4.00-11.30)
[2020-08-17 13:01] LABS: Troponin I 0.015 ng/mL (0.000-0.040)
[2020-08-17 13:12] LABS: Albumin, Blood 2.8 g/dL (3.4-5.0); Albumin/Globulin Ratio 0.7 (0.8-1.8); Bilirubin, Total 0.4 mg/dL (0.1-1.0); Bun/Creatinine Ratio 20.6 (12.0-20.0); Calcium, Blood 8.4 mg/dL (8.5-10.1); Creatinine, Blood 1.36 mg/dL (0.60-1.20); Globulin, Blood 4.3 g/dL (2.2-4.0); Total Protein, Blood 7.1 g/dL (6.4-8.2)
[2020-08-17] MEDS ORDERED: ATOR10 PO (14:07)
[2020-08-17] MEDS ORDERED: Aspirin EC81 MG PO (14:07)
[2020-08-17] MEDS ORDERED: BASAGLAR K100 UNIT/1 SC (14:08)
[2020-08-17] MEDS ORDERED: NOVOLOG100 UNIT/2 SC (14:08)
[2020-08-17] MEDS ORDERED: ROPI1 PO (14:08)
[2020-08-17] MEDS ORDERED: TAMS.4ER PO (14:09)
[2020-08-17] MEDS ORDERED: SENN187 PO (14:09)
[2020-08-17] MEDS ORDERED: SERT50 PO (14:09)
[2020-08-17] MEDS ORDERED: THERA-D2000 UNIT PO (14:09)
[2020-08-17] MEDS ORDERED: LISI5 PO (14:10)
[2020-08-17] MEDS ORDERED: GABA300 PO (14:10)
[2020-08-17] MEDS ORDERED: TOPROL XL25 MG PO (14:11)
[2020-08-17] MEDS ORDERED: VISBIOME 112.51 EACH PO (14:12)
[2020-08-17] MEDS ORDERED: EUCERIN ORIGIN250 ML TOP (14:13)
[2020-08-17] MEDS ORDERED: [UNRECOGNIZED DRUG - OTHER] TOP (14:14)
[2020-08-17] MEDS ORDERED: HYDR1TAB94 PO (14:17)
--- NOTE | 2020-08-17 17:10 | NUR ---
PATIENT HAS 2 OPEN WOUNDS ON HIS BLE AND A HX OF MRSA IN THE WOUNDS.
--- NOTE | 2020-08-18 04:47 | NUR ---
SENIOR INVESTMENT ANALYST SUMMARY PT A&OX4, ABLE TO MAKE NEEDS KNOWN. PLEASANT AND COOPERATIVE TO CARE. NO C/O PAIN OR ANY DISCOMFORT THIS SHIFT. DENIES CP, SOB, OR N&V. PT CONT ON 2LPM O2 VIA NC. SATS >92%. PT 1PA, USES URINAL, DENIES DYSURIA. PT CALM AND RESTED IN BED T/O SHIFT. BED AT LOWEST POSITION. CALL LIGHT WITHIN REACH.
[2020-08-18 05:48] LABS: Bun/Creatinine Ratio 18.9 (12.0-20.0); Calcium, Blood 8.6 mg/dL (8.5-10.1); Creatinine, Blood 1.59 mg/dL (0.60-1.20); Potassium, Blood 4.8 mmol/L (3.5-5.5)
[2020-08-18] MEDS ORDERED: ACET500 PO (13:14)
[2020-08-18] MEDS ORDERED: ONDA4ODT MM (13:15)
[2020-08-18] MEDS ORDERED: FURO40 PO (13:15)
--- NOTE | 2020-08-18 15:28 | NUR ---
PATIENT DISCHARGED TO [facility] VIA [facility] AMBULANCE, W/C WITH O2. PIV REMOVED WITHOUT INCIDENT. DRESSED IN DISPOSABLE SCRUBS HIS CLOTHING WAS SOILED. DECLINED TO WEAR ATTENDS. VERBALIZED UNDERSTANDING OF D/C INSTRUCTIONS. OFF UNIT AT 1515.
--- NOTE | 2020-08-19 16:08 | NUR ---
late entry note did not process Pt seen in ER on the . Pt alert mildly short of breath. States that staff [facility] sent him back in. He has been having more fatigue and more chronic mild dyspnea. He has an appetite. States he can hardly walk anymore. His scleara and tought are dry. So is his skin His ankles and very thin for him. He denies any more pain than he usually has. He is distraught because his vision is getting worse and he has not been able to get in for an eye exam. pt will be admitted for hyperkalemia. Got him a flawored water and a pair of readers pt very happy to be here. theraputic with pt. Will discuss possible hospice with his home health team.
--- NOTE | 2020-10-14 20:48 | NUR ---
REVIEWED PT'S INFORMATION FOR CURRENT ADMISSION
== END 2020-08-18 15:17 | disposition home or self-care (01) ==
LOC: ER 12:03 → MEDS 14:11
PROVIDERS: Emergency Medicine; Nurse Practitioner Acute Care; ADMIT Internal Medicine
DX: E87.5 Hyperkalemia (principal); I13.0 Hypertensive heart and chronic kidney disease with heart failure and stage 1 through stage 4 chronic kidney disease, or unspecified chronic kidney disease; E11.22 Type 2 diabetes mellitus with diabetic chronic kidney disease; N18.30 Chronic kidney disease, stage 3 unspecified; I50.40 Unspecified combined systolic (congestive) and diastolic (congestive) heart failure; N40.0 Benign prostatic hyperplasia without lower urinary tract symptoms; I44.0 Atrioventricular block, first degree; J44.9 Chronic obstructive pulmonary disease, unspecified; E78.5 Hyperlipidemia, unspecified; Z79.4 Long term (current) use of insulin; D64.9 Anemia, unspecified; E66.01 Morbid (severe) obesity due to excess calories; S81.802A Unspecified open wound, left lower leg, initial encounter; S81.801A Unspecified open wound, right lower leg, initial encounter; Z87.891 Personal history of nicotine dependence; Z88.1 Allergy status to other antibiotic agents; Z88.0 Allergy status to penicillin; Z88.2 Allergy status to sulfonamides; Z88.8 Allergy status to other drugs, medicaments and biological substances; Z66 Do not resuscitate; Z68.36 Body mass index [BMI] 36.0-36.9, adult; Z99.81 Dependence on supplemental oxygen; X58.XXXA Exposure to other specified factors, initial encounter
CPT/HCPCS: 36415; 71045; 80048; 80053; 82550; 82947; 83880; 84132; 84484; 85025; 93005; 93010; 96372; 96372-59; 96374; 96375; 96376; 99285-25; A9270; G0378; J0610; J1650; J1815; J1940

== ENCOUNTER 2020-10-13 23:09 | Inpatient (IN) | payer OTHER, MEDICARE ==
[~2020-10-13] VITALS: Ht 177.8 cm; Wt 112.0 kg
[~2020-10-13 23:09] MED LIST changes: +BASAGLAR K100 UNIT/1 SC; +EUCERIN ORIGIN250 ML TOP; +FURO40 PO; +LISI5 PO; +ROPI1 PO; +SERT50 PO; +THERA-D2000 UNIT PO; +TOPROL XL25 MG PO; +VISBIOME 112.51 EACH PO; +[UNRECOGNIZED DRUG - OTHER] TOP
[2020-10-13 23:49] LABS: BASOPHILS ABSOLUTE AUTO 0.05 K/mm3 (0.00-0.23); BASOPHILS PERCENT AUTO 0 % (0-2); EOSINOPHILS ABSOLUTE AUTO 0.17 K/mm3 (0.00-0.68); EOSINOPHILS PERCENT AUTO 1 % (0-6); Hematocrit 46.5 % (37.0-53.0); Hemoglobin 14.7 g/dL (13.5-17.5); IMMATURE GRAN ABSOLUTE AUTO 0.16 K/mm3 (0.00-0.10); IMMATURE GRAN PERCENT AUTO 1 % (0-1); LYMPHOCYTES ABSOLUTE AUTO 0.66 K/mm3 (0.84-5.20); LYMPHOCYTES PERCENT AUTO 3 % (21-46); MONOCYTES ABSOLUTE AUTO 0.94 K/mm3 (0.16-1.47); MONOCYTES PERCENT AUTO 5 % (4-13); Mean Corpuscular HGB 27.1 pg (26.0-34.0); Mean Corpuscular HGB Conc 31.6 g/dL (31.5-36.5); Mean Corpuscular Volume 86 fL (80-100); NEUTROPHILS ABSOLUTE AUTO 18.74 K/mm3 (1.96-9.15); NEUTROPHILS PERCENT AUTO 91 % (41-73); Platelet Count 299 K/mm3 (150-400); RDW Coefficient Variation 14.7 % (11.7-14.2); RDW Standard Deviation 46.3 fL (35.1-46.3); Red Blood Cell Count 5.42 M/mm3 (4.30-5.90); White Blood Cell Count 20.72 K/mm3 (4.00-11.30)
[2020-10-14 00:03] LABS: Alanine Aminotransfer (ALT/SGP 17 U/L (12-78); Albumin, Blood 3.7 g/dL (3.4-5.0); Albumin/Globulin Ratio 0.7 (0.8-1.8); Alk Phos 112 U/L (50-136); Anion Gap 9 mmol/L (6-16); Aspartate Aminotrans (AST/SGOT 18 U/L (12-37); Bilirubin, Total 0.3 mg/dL (0.1-1.0); Blood Urea Nitrogen 65 mg/dL (8-24); Bun/Creatinine Ratio 28.5 (12.0-20.0); CO2, Blood 25 mmol/L (21-32); Calcium, Blood 9.4 mg/dL (8.5-10.1); Chloride, Blood 106 mmol/L (98-108); Creatinine, Blood 2.28 mg/dL (0.60-1.20); Globulin, Blood 5.2 g/dL (2.2-4.0); Glomerular Filtration Rate 29 (60-); Glucose, Blood 189 mg/dL (70-99); Potassium, Blood 4.8 mmol/L (3.5-5.5); Sodium, Blood 140 mmol/L (136-145); Total Protein, Blood 8.9 g/dL (6.4-8.2); Troponin I <0.015 ng/mL (0.000-0.040)
[2020-10-14] MEDS ORDERED: BUME1 PO (00:10)
[2020-10-14] MEDS ORDERED: LOSA50 PO (00:11)
[2020-10-14] MEDS ORDERED: Doxycycline Mo100 M1 PO (00:11)
[2020-10-14 04:02] LABS: C DIFFICILE DNA NEGATIVE (Negative)
[2020-10-14 06:19] LABS: BASOPHILS ABSOLUTE AUTO 0.03 K/mm3 (0.00-0.23); BASOPHILS PERCENT AUTO 0 % (0-2); EOSINOPHILS ABSOLUTE AUTO 0.06 K/mm3 (0.00-0.68); EOSINOPHILS PERCENT AUTO 0 % (0-6); Hematocrit 38.2 % (37.0-53.0); Hemoglobin 12.1 g/dL (13.5-17.5); IMMATURE GRAN ABSOLUTE AUTO 0.14 K/mm3 (0.00-0.10); IMMATURE GRAN PERCENT AUTO 1 % (0-1); LYMPHOCYTES ABSOLUTE AUTO 1.03 K/mm3 (0.84-5.20); LYMPHOCYTES PERCENT AUTO 5 % (21-46); MONOCYTES PERCENT AUTO 6 % (4-13); Mean Corpuscular HGB 27.3 pg (26.0-34.0); Mean Corpuscular HGB Conc 31.7 g/dL (31.5-36.5); Mean Corpuscular Volume 86 fL (80-100); Mean Platelet Volume 9.9 fL (9.1-12.4); NEUTROPHILS ABSOLUTE AUTO 16.87 K/mm3 (1.96-9.15); NEUTROPHILS PERCENT AUTO 88 % (41-73); Platelet Count 240 K/mm3 (150-400); RDW Coefficient Variation 14.6 % (11.7-14.2); RDW Standard Deviation 46.5 fL (35.1-46.3); Red Blood Cell Count 4.43 M/mm3 (4.30-5.90); White Blood Cell Count 19.23 K/mm3 (4.00-11.30)
[2020-10-14 06:36] LABS: Bun/Creatinine Ratio 31.3 (12.0-20.0); Calcium, Blood 8.4 mg/dL (8.5-10.1); Creatinine, Blood 2.33 mg/dL (0.60-1.20); Potassium, Blood 4.9 mmol/L (3.5-5.5)
--- NOTE | 2020-10-14 07:33 | NUR ---
SHIFT SUMMARY RECIEVED REPORT FROM RE[facility] BUTLER, ED. ARRIVED TO MEDICAL UNIT @ 0555, REQUIRING TRANSFER ASSISTANCE FROM [facility] TO BED. APPLIED CLEAN LINENS, CLEANSED WOUNDS AND DRESSED INDICATED, REPOSITIONED. ORIENTED TO ROOM AND CALL SYSTEM. A/O, ABLE TO MAKE NEEDS KNOWN. HOWEVER SOME CONFUSED/FORGETFULNESS NOTED AT TIMES. VSS/AFEBRILE. ARRIVED WITHOUT IV FROM ED. PICTURES OF WOUNDS TAKEN, BUT UNABLE TO PRINT. NO ACUTE CHANGES NOTED AT THIS TIME. BED REMAINS IN LOWEST POSITION; ALARM ON. CALL LIGHT AND BELONGINGS WITHIN REACH. CONTINUE WITH CURRENT PLAN OF CARE. REPORT GIVEN TO ONCOMING RN.
--- NOTE | 2020-10-14 13:38 | NUR ---
[facility], [facility], [facility] reported that the most recent abx had ended at the start of the month
--- NOTE | 2020-10-14 19:31 | NUR ---
redressed wounds trying to protect and enhance healing, restless legs, call light in reach, ns infusing with no s/sx of infection or infiltration, rm air bsr shared with noc nurse
--- NOTE | 2020-10-14 21:47 | NUR ---
PHYSICIAN CORRESPONDENCE BLOOD SUGAR 93 THIS EVENING. ORDERED SEMGLEE 15U. CONCERN FOR POOR PO INTAKE; STATED ONLY ATE A COUPLE CARROTS AND A FEW BITES OF RICE FOR DINNER. ON-CALL PROVIDER STATED TO GO AHEAD AND GIVE LONG ACTING INSULIN.
--- NOTE | 2020-10-15 03:34 | NUR ---
SHIFT SUMMARY A/O, ABLE TO MAKE NEEDS KNOWN. COOPERATIVE WITH CARE. FORGETFUL AT TIMES. CALLS AND ANSWERS QUESTIONS APPROPRIATELY. NO C/O PAIN/DISCOMFORT. MANEUVERS SELF IN BED FREQUENTLY. INCONT BOWEL/URINE, ATTENDS IN PLACE; ROUTINE CHECKS. REMAINS ON RA; RESPIRATIONS EVEN WITH EQUAL RISE FALL. NO C/O SOB. NO COUGH. SPO2 >92%. NO ACUTE CHANGES OVERNIGHT. WILL CLEANSE/REDRESS WOUNDS PRIOR TO SHIFT CHANGE. BED REMAINS IN LOWEST POSITION; ALARM ON. CALL LIGHT AND BELONGINGS WITHIN REACH. CONTINUE WITH CURRENT PLAN OF CARE. REPORT TO ONCOMING RN.
[2020-10-15 04:57] LABS: BASOPHILS ABSOLUTE AUTO 0.02 K/mm3 (0.00-0.23); BASOPHILS PERCENT AUTO 0 % (0-2); EOSINOPHILS ABSOLUTE AUTO 0.37 K/mm3 (0.00-0.68); EOSINOPHILS PERCENT AUTO 4 % (0-6); Hematocrit 33.7 % (37.0-53.0); Hemoglobin 10.8 g/dL (13.5-17.5); IMMATURE GRAN ABSOLUTE AUTO 0.05 K/mm3 (0.00-0.10); IMMATURE GRAN PERCENT AUTO 1 % (0-1); LYMPHOCYTES PERCENT AUTO 26 % (21-46); MONOCYTES ABSOLUTE AUTO 0.81 K/mm3 (0.16-1.47); MONOCYTES PERCENT AUTO 10 % (4-13); Mean Corpuscular HGB 27.2 pg (26.0-34.0); Mean Corpuscular Volume 85 fL (80-100); Mean Platelet Volume 10.2 fL (9.1-12.4); NEUTROPHILS ABSOLUTE AUTO 5.09 K/mm3 (1.96-9.15); NEUTROPHILS PERCENT AUTO 60 % (41-73); Platelet Count 210 K/mm3 (150-400); RDW Coefficient Variation 14.8 % (11.7-14.2); RDW Standard Deviation 46.1 fL (35.1-46.3); Red Blood Cell Count 3.97 M/mm3 (4.30-5.90); White Blood Cell Count 8.54 K/mm3 (4.00-11.30)
[2020-10-15 05:19] LABS: Albumin, Blood 2.8 g/dL (3.4-5.0); Anion Gap 5 mmol/L (6-16); Blood Urea Nitrogen 70 mg/dL (8-24); Bun/Creatinine Ratio 33.7 (12.0-20.0); CO2, Blood 25 mmol/L (21-32); Calcium, Blood 8.4 mg/dL (8.5-10.1); Chloride, Blood 112 mmol/L (98-108); Creatinine, Blood 2.08 mg/dL (0.60-1.20); Glomerular Filtration Rate 33 (60-); Glucose, Blood 109 mg/dL (70-99); Phosphorus, Blood 1.9 mg/dL (2.5-4.9); Potassium, Blood 4.4 mmol/L (3.5-5.5); Sodium, Blood 142 mmol/L (136-145)
--- NOTE | 2020-10-15 10:21 | NUR ---
SPOKE [facility] REGARDING PT. THEY REPORT PT HAD AN APPT TODAY FOR WOUND TREATMENT, [facility] ASK[facility] OVER WOUND TREATMENT PER DR REQUEST.
--- NOTE | 2020-10-15 17:49 | NUR ---
PATIENT A/OX3, BUT FORGETFUL AT TIMES. WOUNDS TO LEGS REDRESSED THIS AM AND REMAIN C/D/I. VSS, ON RA. CONTINENT/INCONTINENT, USES URINAL TO VOID. UP WITH FWW AND [address] PINA WILL NEED TO BE CALLED IN AM FOR CONSULT REGARDING WOUNDS TO LEGS AND SEVERE PVD. TOLERATING ADA DIET, ACHS BLOOD SUGARS. INTERMITTENT LEG PAIN, TREATED WITH TYLENOL AND NORCO X1 WITH GOOD RELIEF. TAKES PILLS WHOLE WITH WATER. PLEASANT AND COOPERATIVE WITH CARE. MULTIPLE ABX ORDERED TO TREAT SEPSIS.
[2020-10-16 05:30] LABS: Hemoglobin 10.9 g/dL (13.5-17.5); Mean Corpuscular HGB 27.4 pg (26.0-34.0); Mean Corpuscular HGB Conc 32.1 g/dL (31.5-36.5); Mean Corpuscular Volume 85 fL (80-100); Mean Platelet Volume 9.9 fL (9.1-12.4); Platelet Count 221 K/mm3 (150-400); RDW Coefficient Variation 14.6 % (11.7-14.2); RDW Standard Deviation 45.6 fL (35.1-46.3); Red Blood Cell Count 3.98 M/mm3 (4.30-5.90)
[2020-10-16 05:51] LABS: Albumin, Blood 2.8 g/dL (3.4-5.0); Anion Gap 5 mmol/L (6-16); Blood Urea Nitrogen 52 mg/dL (8-24); CO2, Blood 24 mmol/L (21-32); Calcium, Blood 8.4 mg/dL (8.5-10.1); Chloride, Blood 113 mmol/L (98-108); Creatinine, Blood 1.68 mg/dL (0.60-1.20); Glomerular Filtration Rate 42 (60-); Glucose, Blood 99 mg/dL (70-99); Phosphorus, Blood 3.9 mg/dL (2.5-4.9); Potassium, Blood 4.3 mmol/L (3.5-5.5); Sodium, Blood 142 mmol/L (136-145)
--- NOTE | 2020-10-16 06:12 | NUR ---
SUMMARY: PT A/OX3 BUT MILDLY FORGETFULL AT TIMES. DX'S TO BLE'S REMAIN C/D/I. [facility] RX'D AND APPLIED TO GROIN, PANUS AND MALINI AREA D/T WORSENING REDNESS. WAS UNAVAILABLE WHEN DAY STAFF ATTEMPTED TO CALL CX SO WILL NEED CALLED AGAIN TODAY FOR SEVERE PVD W/CHRONIC WOUNDS. TYLENOL RECIEVED FOR RELIEF OF L.LEG AND L.SHOULDER PAIN. PT ASSISTED W/REPOSITIONING PRN AND ATTENDS CHANGED FOR STOOL INCONTINENCE. HE USED URINAL INDEPENDENTLY IN BED. HE OCCASIONALLY THOUGHT HE WAS WET WHEN HE WASN'T SO ATTENDS CHECKED OFTEN. HE REMAINS IN CONTACT [facility] FOR HX MRSA. IV ABX BEING RECIEVED FOR (+) STAPH BLOOD CX'S. NO ACUTE CHANGES, VSS/AFEBRILE. WCTM AND REPORT TO DAY RN.
[2020-10-16 13:28] LABS: Vancomycin, Trough 12.1 ug/mL (5.0-10.0)
--- NOTE | 2020-10-16 19:06 | NUR ---
SHIFT SUMMARY PT UP TO CHAIR WITH P.T. AND O.T. THIS AFTERNOON. NAPPING ON AND OFF THROUGH DAY. DENIES PAIN OR NAUSEA. DR. OSORIO PA IN TO SEE PT THIS MORNING AND DRESSINGS CHANGED TO BLE'S. P.A. REPORTS AFTER SPEAKING WITH DR. PINA THAT NO PROCEDURE NEEDED DURING THIS VISIT BUT TO FOLLOW UP AFTER DISCHARGE FOR POSSIBLE NEED.
[2020-10-17 05:49] LABS: Albumin, Blood 2.9 g/dL (3.4-5.0); Anion Gap 3 mmol/L (6-16); Blood Urea Nitrogen 40 mg/dL (8-24); Bun/Creatinine Ratio 25.3 (12.0-20.0); CO2, Blood 25 mmol/L (21-32); Calcium, Blood 8.3 mg/dL (8.5-10.1); Chloride, Blood 114 mmol/L (98-108); Creatinine, Blood 1.58 mg/dL (0.60-1.20); Glomerular Filtration Rate 45 (60-); Glucose, Blood 118 mg/dL (70-99); Phosphorus, Blood 3.6 mg/dL (2.5-4.9); Potassium, Blood 4.6 mmol/L (3.5-5.5); Sodium, Blood 142 mmol/L (136-145)
--- NOTE | 2020-10-17 06:41 | NUR ---
SHIFT SUMMARY PT IS AN 80 Y/O MALE, ADMITTED FOR BLE CELLULITIS AND WOUNDS. HE IS A&O X 3, FORGETFUL AT TIMES, VERY [place]. PT WAS MEDICATED ONCE FOR CHRONIC SHOULDER PAIN WITH PRN TYLENOL. NO C/O NAUSEA OR SOB. PT IS ON 1L OF O2 VIA NC, SATTING > 90%. VITAL SIGNS STABLE. NO ACUTE CHANGES IN PT CONDITION NOTED. WILL CONTINUE TO MONITOR AND TREAT PER EMAR UNTIL HAND OFF TO DAY SHIFT RN.
--- NOTE | 2020-10-17 17:42 | NUR ---
SHIFT SUMMARY DRESSINGS CHANGED THIS AFTERNOON. TOLERATED WITH NO PROBLEM. FEET HAVE A TENDANCY TO JERK IN MOVEMENT. HE REPORTS HE THINKS ITS FROM RESTLESS LEG SYNDROME. DOZING ON AND OFF TODAY. UP TO CHAIR FOR BATH AND THEN WANTED BACK IN BED. NO FEVERS.
--- NOTE | 2020-10-17 20:55 | NUR ---
IV NOT PATENT, REMOVED
--- NOTE | 2020-10-18 05:13 | NUR ---
SHIFT SUMMARY A/O, ABLE TO MAKE NEEDS KNOWN. COOPERATIVE WITH CARE. CALLS AND ANSWERS QUESTIONS APPROPRIATELY. C/O HEADACHE; MEDICATED PER EMAR. APPEARED TO REST MUCH OF THE NIGHT. DRSG TO BLE C/D/I; REPLACED BY DAY SHIFT 10/17/20. REMAINS INCONT BOWEL/BLADDER. NO ACUTE CHANGES NOTED OVERNIGHT. BED IN LOWEST POSITION. CALL LIGHT AND BELONGINGS WITHIN REACH. CONTINUE WITH CURRENT PLAN OF CARE. REPORT TO ONCOMING RN.
[2020-10-18 05:52] LABS: BASOPHILS ABSOLUTE AUTO 0.02 K/mm3 (0.00-0.23); BASOPHILS PERCENT AUTO 0 % (0-2); EOSINOPHILS ABSOLUTE AUTO 0.51 K/mm3 (0.00-0.68); EOSINOPHILS PERCENT AUTO 6 % (0-6); Hematocrit 35.2 % (37.0-53.0); Hemoglobin 11.3 g/dL (13.5-17.5); IMMATURE GRAN ABSOLUTE AUTO 0.11 K/mm3 (0.00-0.10); IMMATURE GRAN PERCENT AUTO 1 % (0-1); LYMPHOCYTES PERCENT AUTO 28 % (21-46); MONOCYTES ABSOLUTE AUTO 0.87 K/mm3 (0.16-1.47); MONOCYTES PERCENT AUTO 10 % (4-13); Mean Corpuscular HGB 27.2 pg (26.0-34.0); Mean Corpuscular HGB Conc 32.1 g/dL (31.5-36.5); Mean Corpuscular Volume 85 fL (80-100); Mean Platelet Volume 9.9 fL (9.1-12.4); NEUTROPHILS ABSOLUTE AUTO 4.54 K/mm3 (1.96-9.15); NEUTROPHILS PERCENT AUTO 55 % (41-73); Platelet Count 202 K/mm3 (150-400); RDW Coefficient Variation 14.6 % (11.7-14.2); RDW Standard Deviation 44.7 fL (35.1-46.3); Red Blood Cell Count 4.15 M/mm3 (4.30-5.90); White Blood Cell Count 8.35 K/mm3 (4.00-11.30)
[2020-10-18 06:10] LABS: Albumin, Blood 2.8 g/dL (3.4-5.0); Anion Gap 5 mmol/L (6-16); Blood Urea Nitrogen 33 mg/dL (8-24); CO2, Blood 25 mmol/L (21-32); Calcium, Blood 8.5 mg/dL (8.5-10.1); Chloride, Blood 113 mmol/L (98-108); Glomerular Filtration Rate 48 (60-); Glucose, Blood 112 mg/dL (70-99); Phosphorus, Blood 3.4 mg/dL (2.5-4.9); Potassium, Blood 4.4 mmol/L (3.5-5.5); Sodium, Blood 143 mmol/L (136-145)
[2020-10-18] MEDS ORDERED: ANTIFUNGAL POWD71 GM TOP (13:19)
[2020-10-18] MEDS ORDERED: VISBIOME 112.51 EACH PO (13:20)
[2020-10-18] MEDS ORDERED: DOXY100 PO (13:20)
--- NOTE | 2020-10-18 18:25 | NUR ---
DISCHARGE SUMMARY NO ACUTE CHANGES THIS SHIFT. PT A/O; PLEASANT AND COOPERATIVE WITH CARE. DRESSINGS TO BLE CDI. VSS. DISCHARGED HOME TO [facility] VIA AMBULANCE. REPORT CALLED TO [facility].
== END 2020-10-18 18:09 | disposition home health service (06) | DRG 872 ==
LOC: ER 23:09 → MEDS 10-14 04:45 → ENPENDDIS 10-18 10:50 → MEDS 10-18 18:09
PROVIDERS: Emergency Medicine; Family Medicine; Internal Medicine; Pharmacist; ADMIT Family Medicine
DX: A41.89 Other specified sepsis (principal); L03.90 Cellulitis, unspecified; I13.0 Hypertensive heart and chronic kidney disease with heart failure and stage 1 through stage 4 chronic kidney disease, or unspecified chronic kidney disease; I50.42 Chronic combined systolic (congestive) and diastolic (congestive) heart failure; N17.9 Acute kidney failure, unspecified; L97.929 Non-pressure chronic ulcer of unspecified part of left lower leg with unspecified severity; L97.919 Non-pressure chronic ulcer of unspecified part of right lower leg with unspecified severity; Z66 Do not resuscitate; R65.20 Severe sepsis without septic shock; N18.30 Chronic kidney disease, stage 3 unspecified; E11.40 Type 2 diabetes mellitus with diabetic neuropathy, unspecified; E11.22 Type 2 diabetes mellitus with diabetic chronic kidney disease; E11.51 Type 2 diabetes mellitus with diabetic peripheral angiopathy without gangrene; F32.9 Major depressive disorder, single episode, unspecified; N40.0 Benign prostatic hyperplasia without lower urinary tract symptoms; R19.7 Diarrhea, unspecified; E78.5 Hyperlipidemia, unspecified; E83.39 Other disorders of phosphorus metabolism; F03.90 Unspecified dementia, unspecified severity, without behavioral disturbance, psychotic disturbance, mood disturbance, and anxiety; J44.9 Chronic obstructive pulmonary disease, unspecified; G25.81 Restless legs syndrome; G89.29 Other chronic pain; M54.9 Dorsalgia, unspecified; Z86.14 Personal history of Methicillin resistant Staphylococcus aureus infection; Z79.82 Long term (current) use of aspirin; Z79.4 Long term (current) use of insulin; Z88.0 Allergy status to penicillin; Z88.2 Allergy status to sulfonamides; Z88.8 Allergy status to other drugs, medicaments and biological substances; Z87.891 Personal history of nicotine dependence
CPT/HCPCS: 36415; 71045; 71250; 73600; 80048; 80053; 80069; 80202; 82947; 83605; 84145; 84484; 85025; 85027; 85651; 86140; 87040; 87077; 87186; 87493; 93005; 93010; 93925; 93970; 96374; 97110; 97161; 97165; 97535; 99285-25; A9270; A9270-GY; J0456; J0690; J0696; J1644; J1815; J2405; J3370; J7030; J7050; J7060

== ENCOUNTER 2020-12-11 08:42 | Day surgery (SDC) | payer OTHER, MEDICARE ==
[~2020-12-11] VITALS: Ht 177.8 cm; Wt 96.0 kg
[~2020-12-11 08:42] MED LIST changes: +ANTIFUNGAL POWD71 GM TOP; +Doxycycline Mo100 M1 PO
[2020-12-11] MEDS ORDERED: PROBIOTIC1 EA13 PO (09:32)
[2020-12-11] MEDS ORDERED: LANTUS SOL100 UNIT/1 SC (09:33)
[2020-12-11] MEDS ORDERED: DOXY100 PO (09:35)
--- NOTE | 2020-12-11 15:02 | NUR ---
DISCHARGE PT DRESSED SELF WITH LITTLE HELP. PT WITH BILATERAL FEMORAL ACCESS SITES WITH ANGIOSEALS IN PLACE. SOME SCANT BLOOD NOTED AT BOTH SITES BUT REMAINS UNCHANGED. PT REPORTS MILD BACK PAIN "FROM LAYING IN THE BED FOR SO LONG" AND SOME HIP PAIN. NO BLEEDING, OOZING OR HEMATOMA NOTED. IV DC WITH CATH IN TACT. PT STATES HIS UNDERSTANDING OF DC AND SITE CARE INSTRUCTIONS AND DENIES ANY QUESTIONS OR CONCERNS. PT TAKEN TO EXIT VIA PERSONAL ELECTRIC WHEELCHAIR WHERE [facility] WAS WAITING TO GIVE PT A RIDE HOME.
== END 2020-12-11 14:45 | disposition home or self-care (01) ==
LOC: MHTC 08:42 → EDSTATUS 08:44 → MHTC 08:45
DX: I70.213 Atherosclerosis of native arteries of extremities with intermittent claudication, bilateral legs (principal); L97.929 Non-pressure chronic ulcer of unspecified part of left lower leg with unspecified severity; L97.919 Non-pressure chronic ulcer of unspecified part of right lower leg with unspecified severity; I13.0 Hypertensive heart and chronic kidney disease with heart failure and stage 1 through stage 4 chronic kidney disease, or unspecified chronic kidney disease; I50.42 Chronic combined systolic (congestive) and diastolic (congestive) heart failure; N18.30 Chronic kidney disease, stage 3 unspecified; E11.22 Type 2 diabetes mellitus with diabetic chronic kidney disease; E78.5 Hyperlipidemia, unspecified; J44.9 Chronic obstructive pulmonary disease, unspecified; K21.9 Gastro-esophageal reflux disease without esophagitis; Z88.0 Allergy status to penicillin; Z88.2 Allergy status to sulfonamides; Z88.8 Allergy status to other drugs, medicaments and biological substances; Z79.4 Long term (current) use of insulin; Z79.899 Other long term (current) drug therapy
CPT/HCPCS: 37221; 75625; 75716; 75774; 76937; 82947; 99152; 99153; C1760; C1769; C1876; C1887; C1894; J1644; J2250; J3010; J7030; J7050; Q9967

== ENCOUNTER 2020-12-25 03:34 | Day surgery (SDC) | payer OTHER, MEDICARE ==
[~2020-12-25 03:34] MED LIST changes: +LANTUS SOL100 UNIT/1 SC; +PROBIOTIC1 EA13 PO
== END 2020-12-25 23:51 | disposition home or self-care (01) ==
LOC: WOUND 03:34
DX: L97.912 Non-pressure chronic ulcer of unspecified part of right lower leg with fat layer exposed (principal); L97.911 Non-pressure chronic ulcer of unspecified part of right lower leg limited to breakdown of skin; L97.312 Non-pressure chronic ulcer of right ankle with fat layer exposed; L97.328 Non-pressure chronic ulcer of left ankle with other specified severity; L97.522 Non-pressure chronic ulcer of other part of left foot with fat layer exposed; L97.521 Non-pressure chronic ulcer of other part of left foot limited to breakdown of skin; L97.511 Non-pressure chronic ulcer of other part of right foot limited to breakdown of skin; I73.9 Peripheral vascular disease, unspecified; I87.2 Venous insufficiency (chronic) (peripheral); R60.0 Localized edema; N18.30 Chronic kidney disease, stage 3 unspecified
CPT/HCPCS: G0463

== ENCOUNTER 2021-01-01 04:22 | Day surgery (SDC) | payer OTHER, MEDICARE | END 2021-01-01 22:55 | disposition home or self-care (01) | LOC: WOUND 04:22 | DX: E11.622 Type 2 diabetes mellitus with other skin ulcer (principal); L97.812 Non-pressure chronic ulcer of other part of right lower leg with fat layer exposed; L97.822 Non-pressure chronic ulcer of other part of left lower leg with fat layer exposed; L97.325 Non-pressure chronic ulcer of left ankle with muscle involvement without evidence of necrosis; L97.315 Non-pressure chronic ulcer of right ankle with muscle involvement without evidence of necrosis; E11.621 Type 2 diabetes mellitus with foot ulcer; L97.512 Non-pressure chronic ulcer of other part of right foot with fat layer exposed; L97.522 Non-pressure chronic ulcer of other part of left foot with fat layer exposed; I73.9 Peripheral vascular disease, unspecified; I87.2 Venous insufficiency (chronic) (peripheral); R60.0 Localized edema; N18.30 Chronic kidney disease, stage 3 unspecified; E11.22 Type 2 diabetes mellitus with diabetic chronic kidney disease | CPT/HCPCS: A9270 ==

== ENCOUNTER 2021-01-07 03:43 | Day surgery (SDC) | payer OTHER, MEDICARE | END 2021-01-07 23:00 | disposition home or self-care (01) | LOC: WOUND 03:43 | DX: L97.322 Non-pressure chronic ulcer of left ankle with fat layer exposed (principal); L97.829 Non-pressure chronic ulcer of other part of left lower leg with unspecified severity; L97.912 Non-pressure chronic ulcer of unspecified part of right lower leg with fat layer exposed; L97.911 Non-pressure chronic ulcer of unspecified part of right lower leg limited to breakdown of skin; L97.312 Non-pressure chronic ulcer of right ankle with fat layer exposed; L97.522 Non-pressure chronic ulcer of other part of left foot with fat layer exposed; L97.521 Non-pressure chronic ulcer of other part of left foot limited to breakdown of skin; L97.511 Non-pressure chronic ulcer of other part of right foot limited to breakdown of skin; I73.9 Peripheral vascular disease, unspecified; I87.2 Venous insufficiency (chronic) (peripheral); R60.0 Localized edema; N18.30 Chronic kidney disease, stage 3 unspecified | CPT/HCPCS: A9270 ==

== ENCOUNTER 2021-01-14 01:23 | Day surgery (SDC) | payer OTHER, MEDICARE | END 2021-01-14 23:01 | disposition home or self-care (01) | LOC: WOUND 01:23 | DX: L97.312 Non-pressure chronic ulcer of right ankle with fat layer exposed (principal); L97.322 Non-pressure chronic ulcer of left ankle with fat layer exposed; L97.512 Non-pressure chronic ulcer of other part of right foot with fat layer exposed; L97.822 Non-pressure chronic ulcer of other part of left lower leg with fat layer exposed; L97.522 Non-pressure chronic ulcer of other part of left foot with fat layer exposed; L97.912 Non-pressure chronic ulcer of unspecified part of right lower leg with fat layer exposed; I73.9 Peripheral vascular disease, unspecified; I87.2 Venous insufficiency (chronic) (peripheral); R60.0 Localized edema; N18.30 Chronic kidney disease, stage 3 unspecified | CPT/HCPCS: A9270 ==

== ENCOUNTER 2021-01-21 07:52 | Day surgery (SDC) | payer OTHER, MEDICARE | END 2021-01-21 23:47 | disposition home or self-care (01) | LOC: WOUND 07:52 | DX: L97.912 Non-pressure chronic ulcer of unspecified part of right lower leg with fat layer exposed (principal); L97.312 Non-pressure chronic ulcer of right ankle with fat layer exposed; L97.322 Non-pressure chronic ulcer of left ankle with fat layer exposed; L97.512 Non-pressure chronic ulcer of other part of right foot with fat layer exposed; L97.522 Non-pressure chronic ulcer of other part of left foot with fat layer exposed; L97.822 Non-pressure chronic ulcer of other part of left lower leg with fat layer exposed; I73.9 Peripheral vascular disease, unspecified; I87.2 Venous insufficiency (chronic) (peripheral); R60.0 Localized edema; N18.30 Chronic kidney disease, stage 3 unspecified; Z88.0 Allergy status to penicillin; Z88.2 Allergy status to sulfonamides; Z88.8 Allergy status to other drugs, medicaments and biological substances | CPT/HCPCS: A9270 ==

== ENCOUNTER 2021-01-28 01:47 | Day surgery (SDC) | payer OTHER, MEDICARE | END 2021-01-28 23:04 | disposition home or self-care (01) | LOC: WOUND 01:47 | DX: L97.312 Non-pressure chronic ulcer of right ankle with fat layer exposed (principal); L97.322 Non-pressure chronic ulcer of left ankle with fat layer exposed; L97.522 Non-pressure chronic ulcer of other part of left foot with fat layer exposed; L97.512 Non-pressure chronic ulcer of other part of right foot with fat layer exposed; L97.912 Non-pressure chronic ulcer of unspecified part of right lower leg with fat layer exposed; I73.9 Peripheral vascular disease, unspecified; I87.2 Venous insufficiency (chronic) (peripheral); R60.0 Localized edema; N18.30 Chronic kidney disease, stage 3 unspecified; Z88.0 Allergy status to penicillin; Z88.2 Allergy status to sulfonamides | CPT/HCPCS: A9270 ==

== ENCOUNTER 2021-02-04 00:09 | Day surgery (SDC) | payer OTHER | END 2021-02-04 22:56 | disposition home or self-care (01) | LOC: WOUND 00:09 | DX: E11.621 Type 2 diabetes mellitus with foot ulcer (principal); L97.512 Non-pressure chronic ulcer of other part of right foot with fat layer exposed; L97.522 Non-pressure chronic ulcer of other part of left foot with fat layer exposed; L97.312 Non-pressure chronic ulcer of right ankle with fat layer exposed; L97.325 Non-pressure chronic ulcer of left ankle with muscle involvement without evidence of necrosis; E11.51 Type 2 diabetes mellitus with diabetic peripheral angiopathy without gangrene; I87.2 Venous insufficiency (chronic) (peripheral); R60.0 Localized edema; N18.30 Chronic kidney disease, stage 3 unspecified; E11.22 Type 2 diabetes mellitus with diabetic chronic kidney disease | CPT/HCPCS: A9270 ==

== ENCOUNTER 2021-02-06 22:20 | Emergency (ER) | payer OTHER ==
[~2021-02-06] VITALS: Ht 177.8 cm; Wt 121.6 kg
[2021-02-06 23:22] LABS: BASOPHILS ABSOLUTE AUTO 0.02 K/mm3 (0.00-0.23); BASOPHILS PERCENT AUTO 0 % (0-2); EOSINOPHILS ABSOLUTE AUTO 0.01 K/mm3 (0.00-0.68); EOSINOPHILS PERCENT AUTO 0 % (0-6); Hematocrit 33.4 % (37.0-53.0); Hemoglobin 10.6 g/dL (13.5-17.5); IMMATURE GRAN ABSOLUTE AUTO 0.07 K/mm3 (0.00-0.10); IMMATURE GRAN PERCENT AUTO 1 % (0-1); LYMPHOCYTES ABSOLUTE AUTO 1.08 K/mm3 (0.84-5.20); LYMPHOCYTES PERCENT AUTO 12 % (21-46); MONOCYTES ABSOLUTE AUTO 0.86 K/mm3 (0.16-1.47); MONOCYTES PERCENT AUTO 9 % (4-13); Mean Corpuscular HGB 27.5 pg (26.0-34.0); Mean Corpuscular HGB Conc 31.7 g/dL (31.5-36.5); Mean Corpuscular Volume 87 fL (80-100); NEUTROPHILS ABSOLUTE AUTO 7.39 K/mm3 (1.96-9.15); NEUTROPHILS PERCENT AUTO 78 % (41-73); Platelet Count 237 K/mm3 (150-400); RDW Coefficient Variation 14.1 % (11.7-14.2); RDW Standard Deviation 44.7 fL (35.1-46.3); Red Blood Cell Count 3.86 M/mm3 (4.30-5.90); White Blood Cell Count 9.43 K/mm3 (4.00-11.30)
[2021-02-06 23:42] LABS: Albumin, Blood 2.8 g/dL (3.4-5.0); Albumin/Globulin Ratio 0.7 (0.8-1.8); Bilirubin, Total 0.4 mg/dL (0.1-1.0); Bun/Creatinine Ratio 23.3 (12.0-20.0); Calcium, Blood 8.5 mg/dL (8.5-10.1); Creatinine, Blood 2.1 mg/dL (0.60-1.20); Globulin, Blood 4.3 g/dL (2.2-4.0); Potassium, Blood 4.5 mmol/L (3.5-5.5); Total Protein, Blood 7.1 g/dL (6.4-8.2)
[2021-02-07 00:56] LABS: Source, Urine Catheter
[2021-02-07 01:05] LABS: Bilirubin, Urine Neg (Neg); Blood, Urine Neg (Neg); Glucose Qualitative, Urine Neg (Neg); Ketones, Urine Neg (Neg); Leukocyte Esterase, Urine Neg (Neg); Nitrite, Urine Neg (Neg); Protein, Urine 1+ (Neg); Specific Gravity, Urine 1.015 (1.003-1.022); Urobilinogen, Urine NORM (Normal)
[2021-02-07 01:10] LABS: Appearance, Urine Clear (Clear); Color, Urine Yellow (P-Yellow)
== END 2021-02-07 02:58 | disposition home or self-care (01) ==
LOC: ER 22:20
PROVIDERS: Emergency Medicine; Student in an Organized Health Care Education/Training Program
DX: R30.0 Dysuria (principal); E11.22 Type 2 diabetes mellitus with diabetic chronic kidney disease; N18.30 Chronic kidney disease, stage 3 unspecified; I12.9 Hypertensive chronic kidney disease with stage 1 through stage 4 chronic kidney disease, or unspecified chronic kidney disease; J44.9 Chronic obstructive pulmonary disease, unspecified; F03.90 Unspecified dementia, unspecified severity, without behavioral disturbance, psychotic disturbance, mood disturbance, and anxiety; N40.0 Benign prostatic hyperplasia without lower urinary tract symptoms; Z88.0 Allergy status to penicillin; Z88.2 Allergy status to sulfonamides; Z88.8 Allergy status to other drugs, medicaments and biological substances; Z79.82 Long term (current) use of aspirin; Z79.4 Long term (current) use of insulin; Z87.891 Personal history of nicotine dependence
CPT/HCPCS: 36415; 51701; 80053; 85025; 93005; 93010; 99285-25

== ENCOUNTER 2021-02-11 02:38 | Day surgery (SDC) | payer OTHER, MEDICARE | END 2021-02-11 12:00 | disposition home or self-care (01) | LOC: WOUND 02:38 | DX: E11.622 Type 2 diabetes mellitus with other skin ulcer (principal); L97.315 Non-pressure chronic ulcer of right ankle with muscle involvement without evidence of necrosis; L97.325 Non-pressure chronic ulcer of left ankle with muscle involvement without evidence of necrosis; E11.621 Type 2 diabetes mellitus with foot ulcer; L97.522 Non-pressure chronic ulcer of other part of left foot with fat layer exposed; L97.512 Non-pressure chronic ulcer of other part of right foot with fat layer exposed; E11.51 Type 2 diabetes mellitus with diabetic peripheral angiopathy without gangrene; I87.2 Venous insufficiency (chronic) (peripheral); R60.0 Localized edema; N18.30 Chronic kidney disease, stage 3 unspecified; I73.9 Peripheral vascular disease, unspecified; Z88.0 Allergy status to penicillin; Z88.2 Allergy status to sulfonamides; Z88.8 Allergy status to other drugs, medicaments and biological substances | CPT/HCPCS: 73610; 73630; 87070; 87075; 87077; 87147; 87186; 87205; A9270 ==

== ENCOUNTER 2021-02-18 08:00 | Day surgery (SDC) | payer OTHER, MEDICARE | END 2021-02-18 23:59 | disposition home or self-care (01) | LOC: WOUND 08:00 | DX: E11.621 Type 2 diabetes mellitus with foot ulcer (principal); L97.522 Non-pressure chronic ulcer of other part of left foot with fat layer exposed; L97.512 Non-pressure chronic ulcer of other part of right foot with fat layer exposed; E11.622 Type 2 diabetes mellitus with other skin ulcer; L97.812 Non-pressure chronic ulcer of other part of right lower leg with fat layer exposed; L97.315 Non-pressure chronic ulcer of right ankle with muscle involvement without evidence of necrosis; L97.325 Non-pressure chronic ulcer of left ankle with muscle involvement without evidence of necrosis; E11.51 Type 2 diabetes mellitus with diabetic peripheral angiopathy without gangrene; I87.2 Venous insufficiency (chronic) (peripheral); E11.22 Type 2 diabetes mellitus with diabetic chronic kidney disease; N18.30 Chronic kidney disease, stage 3 unspecified ==

== ENCOUNTER 2021-02-27 01:23 | Day surgery (SDC) | payer OTHER, MEDICARE | END 2021-02-27 23:04 | disposition home or self-care (01) | LOC: WOUND 01:23 | DX: L97.512 Non-pressure chronic ulcer of other part of right foot with fat layer exposed (principal); L97.312 Non-pressure chronic ulcer of right ankle with fat layer exposed; L97.328 Non-pressure chronic ulcer of left ankle with other specified severity; L97.522 Non-pressure chronic ulcer of other part of left foot with fat layer exposed; I87.2 Venous insufficiency (chronic) (peripheral); I73.9 Peripheral vascular disease, unspecified; N18.30 Chronic kidney disease, stage 3 unspecified; R60.0 Localized edema | CPT/HCPCS: A9270 ==

== ENCOUNTER 2021-03-11 01:23 | Day surgery (SDC) | payer OTHER, MEDICARE | END 2021-03-11 23:07 | disposition home or self-care (01) | LOC: WOUND 01:23 | DX: L97.315 Non-pressure chronic ulcer of right ankle with muscle involvement without evidence of necrosis (principal); L97.325 Non-pressure chronic ulcer of left ankle with muscle involvement without evidence of necrosis; L97.522 Non-pressure chronic ulcer of other part of left foot with fat layer exposed; L97.512 Non-pressure chronic ulcer of other part of right foot with fat layer exposed; I73.9 Peripheral vascular disease, unspecified; I87.2 Venous insufficiency (chronic) (peripheral); R60.0 Localized edema; N18.30 Chronic kidney disease, stage 3 unspecified | CPT/HCPCS: 87070; 87205; A9270 ==

== ENCOUNTER 2021-03-18 02:34 | Day surgery (SDC) | payer OTHER, MEDICARE ==
[2021-03-19] MEDS ORDERED: CIPRO500 M1 PO (19:09)
[2021-03-19] MEDS ORDERED: ONDA4ODT MM (19:09)
[2021-03-19] MEDS ORDERED: METR500 PO (19:09)
== END 2021-03-18 23:02 | disposition home or self-care (01) ==
LOC: WOUND 02:34
DX: E11.621 Type 2 diabetes mellitus with foot ulcer (principal); L97.512 Non-pressure chronic ulcer of other part of right foot with fat layer exposed; L97.522 Non-pressure chronic ulcer of other part of left foot with fat layer exposed; L97.312 Non-pressure chronic ulcer of right ankle with fat layer exposed; L97.322 Non-pressure chronic ulcer of left ankle with fat layer exposed; N18.30 Chronic kidney disease, stage 3 unspecified; I87.2 Venous insufficiency (chronic) (peripheral); E11.51 Type 2 diabetes mellitus with diabetic peripheral angiopathy without gangrene; R60.0 Localized edema
CPT/HCPCS: A9270

== ENCOUNTER 2021-03-19 17:11 | Emergency (ER) | payer OTHER, MEDICARE ==
[~2021-03-19] VITALS: Ht 172.7 cm; Wt 104.3 kg
[2021-03-19 18:36] LABS: BASOPHILS ABSOLUTE AUTO 0.05 K/mm3 (0.00-0.23); BASOPHILS PERCENT AUTO 0 % (0-2); EOSINOPHILS ABSOLUTE AUTO 0.24 K/mm3 (0.00-0.68); EOSINOPHILS PERCENT AUTO 2 % (0-6); Hematocrit 38.4 % (37.0-53.0); Hemoglobin 12.4 g/dL (13.5-17.5); IMMATURE GRAN ABSOLUTE AUTO 0.18 K/mm3 (0.00-0.10); IMMATURE GRAN PERCENT AUTO 1 % (0-1); LYMPHOCYTES ABSOLUTE AUTO 1.59 K/mm3 (0.84-5.20); LYMPHOCYTES PERCENT AUTO 12 % (21-46); MONOCYTES ABSOLUTE AUTO 0.94 K/mm3 (0.16-1.47); MONOCYTES PERCENT AUTO 7 % (4-13); Mean Corpuscular HGB 27.8 pg (26.0-34.0); Mean Corpuscular HGB Conc 32.3 g/dL (31.5-36.5); Mean Corpuscular Volume 86 fL (80-100); Mean Platelet Volume 10.3 fL (9.1-12.4); NEUTROPHILS ABSOLUTE AUTO 10.53 K/mm3 (1.96-9.15); NEUTROPHILS PERCENT AUTO 78 % (41-73); Platelet Count 308 K/mm3 (150-400); RDW Coefficient Variation 14.3 % (11.7-14.2); RDW Standard Deviation 45.2 fL (35.1-46.3); Red Blood Cell Count 4.46 M/mm3 (4.30-5.90); White Blood Cell Count 13.53 K/mm3 (4.00-11.30)
[2021-03-19 18:53] LABS: Alanine Aminotransfer (ALT/SGP 14 U/L (12-78); Albumin, Blood 2.7 g/dL (3.4-5.0); Albumin/Globulin Ratio 0.5 (0.8-1.8); Alk Phos 89 U/L (50-136); Anion Gap 6 mmol/L (6-16); Aspartate Aminotrans (AST/SGOT 8 U/L (12-37); Bilirubin, Total 0.3 mg/dL (0.1-1.0); Blood Urea Nitrogen 55 mg/dL (8-24); Bun/Creatinine Ratio 29.9 (12.0-20.0); CO2, Blood 29 mmol/L (21-32); Calcium, Blood 9.4 mg/dL (8.5-10.1); Chloride, Blood 102 mmol/L (98-108); Creatinine, Blood 1.84 mg/dL (0.60-1.20); Globulin, Blood 5.4 g/dL (2.2-4.0); Glomerular Filtration Rate 35 (60-); Glucose, Blood 175 mg/dL (70-99); Potassium, Blood 4.9 mmol/L (3.5-5.5); Sodium, Blood 137 mmol/L (136-145); Total Protein, Blood 8.1 g/dL (6.4-8.2); Troponin I <0.015 ng/mL (0.000-0.040)
[2021-03-19] MEDS ORDERED: CIPRO500 M1 PO (19:09)
[2021-03-19] MEDS ORDERED: ONDA4ODT MM (19:09)
[2021-03-19] MEDS ORDERED: METR500 PO (19:09)
== END 2021-03-19 21:27 | disposition home or self-care (01) ==
LOC: ER 17:11
PROVIDERS: Student in an Organized Health Care Education/Training Program
DX: R10.13 Epigastric pain (principal); K21.9 Gastro-esophageal reflux disease without esophagitis; E11.40 Type 2 diabetes mellitus with diabetic neuropathy, unspecified; E78.5 Hyperlipidemia, unspecified; I13.0 Hypertensive heart and chronic kidney disease with heart failure and stage 1 through stage 4 chronic kidney disease, or unspecified chronic kidney disease; N18.30 Chronic kidney disease, stage 3 unspecified; I50.32 Chronic diastolic (congestive) heart failure; J44.9 Chronic obstructive pulmonary disease, unspecified; Z87.891 Personal history of nicotine dependence
CPT/HCPCS: 36415; 71045; 80053; 83690; 84484; 85025; 93005; 93010; 99284-25; A9270

== ENCOUNTER 2021-04-04 01:55 | Day surgery (SDC) | payer OTHER ==
[~2021-04-04 01:55] MED LIST changes: +CIPRO500 M1 PO; +METR500 PO
[2021-04-04 13:21] LABS: Albumin, Blood 2.6 g/dL (3.4-5.0); Albumin/Globulin Ratio 0.5 (0.8-1.8); Bilirubin, Total 0.3 mg/dL (0.1-1.0); Bun/Creatinine Ratio 21.2 (12.0-20.0); C-REACTIVE PROTEIN, EXT RANGE 6.32 mg/dL (0.000-0.300); Calcium, Blood 8.7 mg/dL (8.5-10.1); Creatinine, Blood 1.65 mg/dL (0.60-1.20); Globulin, Blood 5.2 g/dL (2.2-4.0); Potassium, Blood 4.3 mmol/L (3.5-5.5); Total Protein, Blood 7.8 g/dL (6.4-8.2)
[2021-04-04 13:46] LABS: BASOPHILS ABSOLUTE AUTO 0.02 K/mm3 (0.00-0.23); BASOPHILS PERCENT AUTO 0 % (0-2); EOSINOPHILS ABSOLUTE AUTO 0.45 K/mm3 (0.00-0.68); EOSINOPHILS PERCENT AUTO 4 % (0-6); Hematocrit 35.7 % (37.0-53.0); Hemoglobin 11.5 g/dL (13.5-17.5); IMMATURE GRAN ABSOLUTE AUTO 0.06 K/mm3 (0.00-0.10); IMMATURE GRAN PERCENT AUTO 1 % (0-1); LYMPHOCYTES ABSOLUTE AUTO 2.61 K/mm3 (0.84-5.20); LYMPHOCYTES PERCENT AUTO 25 % (21-46); MONOCYTES ABSOLUTE AUTO 0.98 K/mm3 (0.16-1.47); MONOCYTES PERCENT AUTO 9 % (4-13); Mean Corpuscular HGB Conc 32.2 g/dL (31.5-36.5); Mean Corpuscular Volume 87 fL (80-100); Mean Platelet Volume 9.8 fL (9.1-12.4); NEUTROPHILS ABSOLUTE AUTO 6.48 K/mm3 (1.96-9.15); NEUTROPHILS PERCENT AUTO 61 % (41-73); Platelet Count 313 K/mm3 (150-400); RDW Standard Deviation 47.8 fL (35.1-46.3); Red Blood Cell Count 4.11 M/mm3 (4.30-5.90)
== END 2021-04-04 23:59 | disposition home or self-care (01) ==
LOC: WOUND 01:55
PROVIDERS: Nurse Practitioner Family
DX: E11.621 Type 2 diabetes mellitus with foot ulcer (principal); L97.522 Non-pressure chronic ulcer of other part of left foot with fat layer exposed; L97.514 Non-pressure chronic ulcer of other part of right foot with necrosis of bone; L97.316 Non-pressure chronic ulcer of right ankle with bone involvement without evidence of necrosis; L97.326 Non-pressure chronic ulcer of left ankle with bone involvement without evidence of necrosis; E11.51 Type 2 diabetes mellitus with diabetic peripheral angiopathy without gangrene; I87.2 Venous insufficiency (chronic) (peripheral); R60.0 Localized edema; N18.30 Chronic kidney disease, stage 3 unspecified; E11.22 Type 2 diabetes mellitus with diabetic chronic kidney disease; M86.271 Subacute osteomyelitis, right ankle and foot; M86.272 Subacute osteomyelitis, left ankle and foot
CPT/HCPCS: 80053; 85025; 85651; 86140; 87070; 87075; 87077; 87147; 87186; 87205; A9270

== ENCOUNTER 2021-04-10 07:38 | Day surgery (SDC) | payer OTHER | END 2021-04-10 11:39 | disposition home or self-care (01) | LOC: ATC 07:38 | DX: E11.69 Type 2 diabetes mellitus with other specified complication (principal); M86.272 Subacute osteomyelitis, left ankle and foot; M86.271 Subacute osteomyelitis, right ankle and foot; E11.622 Type 2 diabetes mellitus with other skin ulcer; E11.621 Type 2 diabetes mellitus with foot ulcer; L98.492 Non-pressure chronic ulcer of skin of other sites with fat layer exposed; L97.812 Non-pressure chronic ulcer of other part of right lower leg with fat layer exposed; L97.522 Non-pressure chronic ulcer of other part of left foot with fat layer exposed; L97.512 Non-pressure chronic ulcer of other part of right foot with fat layer exposed; L97.523 Non-pressure chronic ulcer of other part of left foot with necrosis of muscle; I87.2 Venous insufficiency (chronic) (peripheral); I13.0 Hypertensive heart and chronic kidney disease with heart failure and stage 1 through stage 4 chronic kidney disease, or unspecified chronic kidney disease; I50.9 Heart failure, unspecified; N18.30 Chronic kidney disease, stage 3 unspecified; E11.22 Type 2 diabetes mellitus with diabetic chronic kidney disease; E11.51 Type 2 diabetes mellitus with diabetic peripheral angiopathy without gangrene; K21.9 Gastro-esophageal reflux disease without esophagitis; J44.9 Chronic obstructive pulmonary disease, unspecified; E66.9 Obesity, unspecified; M19.90 Unspecified osteoarthritis, unspecified site; Z88.0 Allergy status to penicillin; Z88.2 Allergy status to sulfonamides; Z88.8 Allergy status to other drugs, medicaments and biological substances; Z79.82 Long term (current) use of aspirin; Z79.899 Other long term (current) drug therapy; Z79.4 Long term (current) use of insulin | CPT/HCPCS: 82565; 96365; 96366; J3370; J7050 ==

== ENCOUNTER 2021-04-13 04:16 | Day surgery (SDC) | payer OTHER ==
[2021-04-13] MEDS ORDERED: VANCOMYCIN HCL1 G1 IV (11:19)
[2021-04-14] MEDS ORDERED: ATOR10 PO (10:32)
[2021-04-14] MEDS ORDERED: NITR100CA PO (10:56)
[2021-04-14] MEDS ORDERED: CLIN150 PO (11:01)
== END 2021-04-13 11:50 | disposition home or self-care (01) ==
LOC: ATC 04:16
DX: M86.272 Subacute osteomyelitis, left ankle and foot (principal); M86.271 Subacute osteomyelitis, right ankle and foot; E11.621 Type 2 diabetes mellitus with foot ulcer; L97.514 Non-pressure chronic ulcer of other part of right foot with necrosis of bone; L97.324 Non-pressure chronic ulcer of left ankle with necrosis of bone; J44.9 Chronic obstructive pulmonary disease, unspecified; I11.0 Hypertensive heart disease with heart failure; I50.9 Heart failure, unspecified; K21.9 Gastro-esophageal reflux disease without esophagitis; Z88.0 Allergy status to penicillin; Z88.2 Allergy status to sulfonamides; Z88.8 Allergy status to other drugs, medicaments and biological substances
CPT/HCPCS: 96365; C1751; J3370; J7050

== ENCOUNTER 2021-04-14 02:40 | Day surgery (SDC) | payer OTHER ==
[~2021-04-14 02:40] MED LIST changes: +VANCOMYCIN HCL1 G1 IV
[2021-04-14] MEDS ORDERED: ATOR10 PO (10:32)
[2021-04-14] MEDS ORDERED: NITR100CA PO (10:56)
[2021-04-14] MEDS ORDERED: CLIN150 PO (11:01)
== END 2021-04-14 12:05 | disposition home or self-care (01) ==
LOC: ATC 02:40
DX: M86.272 Subacute osteomyelitis, left ankle and foot (principal); M86.271 Subacute osteomyelitis, right ankle and foot; E11.621 Type 2 diabetes mellitus with foot ulcer; L97.514 Non-pressure chronic ulcer of other part of right foot with necrosis of bone; L97.324 Non-pressure chronic ulcer of left ankle with necrosis of bone; J44.9 Chronic obstructive pulmonary disease, unspecified; I11.0 Hypertensive heart disease with heart failure; K21.9 Gastro-esophageal reflux disease without esophagitis
CPT/HCPCS: 96365; 96366; J3370; J7050

== ENCOUNTER 2021-04-15 04:01 | Day surgery (SDC) | payer OTHER ==
[~2021-04-15] VITALS: Ht 177.8 cm; Wt 112.4 kg
[~2021-04-15 04:01] MED LIST changes: +CLIN150 PO; +NITR100CA PO
[2021-04-15 10:05] LABS: Creatinine, Blood 1.82 mg/dL (0.60-1.20); Vancomycin, Trough 22.2 ug/mL (5.0-10.0)
--- NOTE | 2021-04-15 10:09 | NUR ---
SPOKE WITH LEO IN PHARMACY. HIS VANCO TROUGH IS 22.2 AND CREATININE IS 1.82. PER LEO, PT WILL NOT RECEIVE A DOSE OF VANCO TODAY. PLAN WILL BE TO HAVE PT RETURN TOMORROW FOR A DOSE OF VANCO. PT AWARE OR PLAN. AMBULANCE CALLED FOR A RETURN RIDE HOME FOR PT.
== END 2021-04-15 10:09 | disposition home or self-care (01) ==
LOC: ATC 04:01
PROVIDERS: Nurse Practitioner Family
DX: M86.272 Subacute osteomyelitis, left ankle and foot (principal); M86.271 Subacute osteomyelitis, right ankle and foot; E11.621 Type 2 diabetes mellitus with foot ulcer; L97.324 Non-pressure chronic ulcer of left ankle with necrosis of bone; J44.9 Chronic obstructive pulmonary disease, unspecified; I11.0 Hypertensive heart disease with heart failure; I50.9 Heart failure, unspecified; K21.9 Gastro-esophageal reflux disease without esophagitis; Z88.0 Allergy status to penicillin; Z88.2 Allergy status to sulfonamides; Z88.8 Allergy status to other drugs, medicaments and biological substances
CPT/HCPCS: 36415; 80202; 82565; 99211

== ENCOUNTER 2021-04-16 02:44 | Day surgery (SDC) | payer OTHER | END 2021-04-16 12:00 | disposition home or self-care (01) | LOC: WOUND 02:44 | PROC: 0JBQ0ZZ Excision of Right Foot Subcutaneous Tissue and Fascia, Open Approach (ICD-10-PCS; principal; 2021-04-16) | PROC: 0JBR0ZZ Excision of Left Foot Subcutaneous Tissue and Fascia, Open Approach (ICD-10-PCS; principal; 2021-04-16) | DX: E11.621 Type 2 diabetes mellitus with foot ulcer (principal); E11.622 Type 2 diabetes mellitus with other skin ulcer; E11.69 Type 2 diabetes mellitus with other specified complication; L97.512 Non-pressure chronic ulcer of other part of right foot with fat layer exposed; L97.522 Non-pressure chronic ulcer of other part of left foot with fat layer exposed; L97.315 Non-pressure chronic ulcer of right ankle with muscle involvement without evidence of necrosis; L97.325 Non-pressure chronic ulcer of left ankle with muscle involvement without evidence of necrosis; L97.515 Non-pressure chronic ulcer of other part of right foot with muscle involvement without evidence of necrosis; M86.271 Subacute osteomyelitis, right ankle and foot; M86.272 Subacute osteomyelitis, left ankle and foot; E11.51 Type 2 diabetes mellitus with diabetic peripheral angiopathy without gangrene; I87.2 Venous insufficiency (chronic) (peripheral); N18.30 Chronic kidney disease, stage 3 unspecified | CPT/HCPCS: A9270 ==

== ENCOUNTER 2021-04-16 02:46 | Day surgery (SDC) | payer OTHER | END 2021-04-16 09:48 | disposition home or self-care (01) | LOC: ATC 02:46 | DX: M86.272 Subacute osteomyelitis, left ankle and foot (principal); M86.271 Subacute osteomyelitis, right ankle and foot; E11.621 Type 2 diabetes mellitus with foot ulcer; L97.514 Non-pressure chronic ulcer of other part of right foot with necrosis of bone; J44.9 Chronic obstructive pulmonary disease, unspecified; I11.0 Hypertensive heart disease with heart failure; I50.9 Heart failure, unspecified; K21.9 Gastro-esophageal reflux disease without esophagitis; Z88.0 Allergy status to penicillin; Z88.2 Allergy status to sulfonamides; Z88.8 Allergy status to other drugs, medicaments and biological substances | CPT/HCPCS: 96365; 96366; J3370; J7050 ==

== ENCOUNTER 2021-04-17 04:28 | Day surgery (SDC) | payer OTHER | END 2021-04-17 09:54 | disposition home or self-care (01) | LOC: ATC 04:28 | DX: E11.69 Type 2 diabetes mellitus with other specified complication (principal); M86.272 Subacute osteomyelitis, left ankle and foot; M86.271 Subacute osteomyelitis, right ankle and foot; E11.621 Type 2 diabetes mellitus with foot ulcer; L97.324 Non-pressure chronic ulcer of left ankle with necrosis of bone; L97.514 Non-pressure chronic ulcer of other part of right foot with necrosis of bone; J44.9 Chronic obstructive pulmonary disease, unspecified; E11.51 Type 2 diabetes mellitus with diabetic peripheral angiopathy without gangrene; K21.9 Gastro-esophageal reflux disease without esophagitis; M19.90 Unspecified osteoarthritis, unspecified site; I13.0 Hypertensive heart and chronic kidney disease with heart failure and stage 1 through stage 4 chronic kidney disease, or unspecified chronic kidney disease; I50.9 Heart failure, unspecified; E11.22 Type 2 diabetes mellitus with diabetic chronic kidney disease; N18.9 Chronic kidney disease, unspecified; Z88.0 Allergy status to penicillin; Z88.2 Allergy status to sulfonamides; Z88.8 Allergy status to other drugs, medicaments and biological substances | CPT/HCPCS: 96365; 96366; J3370; J7050 ==

== ENCOUNTER 2021-04-18 00:43 | Day surgery (SDC) | payer OTHER ==
[2021-04-18 08:34] LABS: Creatinine, Blood 1.75 mg/dL (0.60-1.20)
[2021-04-18 08:37] LABS: Vancomycin, Trough 26.2 ug/mL (5.0-10.0)
--- NOTE | 2021-04-18 08:50 | NUR ---
NO VANCO TO BE GIVEN TODAY PER PHARMANCY, DUE TO LAB RESULTS.
== END 2021-04-18 08:50 | disposition home or self-care (01) ==
LOC: ATC 00:43
PROVIDERS: Nurse Practitioner Family
DX: E11.69 Type 2 diabetes mellitus with other specified complication (principal); M86.272 Subacute osteomyelitis, left ankle and foot; M86.271 Subacute osteomyelitis, right ankle and foot; E11.621 Type 2 diabetes mellitus with foot ulcer; L97.524 Non-pressure chronic ulcer of other part of left foot with necrosis of bone; L97.514 Non-pressure chronic ulcer of other part of right foot with necrosis of bone; I13.0 Hypertensive heart and chronic kidney disease with heart failure and stage 1 through stage 4 chronic kidney disease, or unspecified chronic kidney disease; E11.22 Type 2 diabetes mellitus with diabetic chronic kidney disease; N18.30 Chronic kidney disease, stage 3 unspecified; I50.9 Heart failure, unspecified; E11.51 Type 2 diabetes mellitus with diabetic peripheral angiopathy without gangrene; Z88.0 Allergy status to penicillin; Z88.2 Allergy status to sulfonamides; Z88.8 Allergy status to other drugs, medicaments and biological substances
CPT/HCPCS: 36592; 80202; 82565

== ENCOUNTER 2021-04-19 03:01 | Day surgery (SDC) | payer OTHER ==
[2021-04-19 09:03] LABS: Vancomycin, Random 19.1 ug/mL
== END 2021-04-19 11:12 | disposition home or self-care (01) ==
LOC: ATC 03:01
PROVIDERS: Nurse Practitioner Family
DX: E11.69 Type 2 diabetes mellitus with other specified complication (principal); M86.272 Subacute osteomyelitis, left ankle and foot; M86.271 Subacute osteomyelitis, right ankle and foot; E11.621 Type 2 diabetes mellitus with foot ulcer; E11.622 Type 2 diabetes mellitus with other skin ulcer; L97.324 Non-pressure chronic ulcer of left ankle with necrosis of bone; L97.514 Non-pressure chronic ulcer of other part of right foot with necrosis of bone; J44.9 Chronic obstructive pulmonary disease, unspecified; I13.0 Hypertensive heart and chronic kidney disease with heart failure and stage 1 through stage 4 chronic kidney disease, or unspecified chronic kidney disease; E11.22 Type 2 diabetes mellitus with diabetic chronic kidney disease; N18.30 Chronic kidney disease, stage 3 unspecified; I50.9 Heart failure, unspecified
CPT/HCPCS: 80202; J3370

== ENCOUNTER 2021-04-20 08:25 | Day surgery (SDC) | payer OTHER | END 2021-04-20 09:45 | disposition home or self-care (01) | LOC: ATC 08:25 | DX: E11.69 Type 2 diabetes mellitus with other specified complication (principal); M86.272 Subacute osteomyelitis, left ankle and foot; M86.271 Subacute osteomyelitis, right ankle and foot; E11.622 Type 2 diabetes mellitus with other skin ulcer; L97.324 Non-pressure chronic ulcer of left ankle with necrosis of bone; E11.621 Type 2 diabetes mellitus with foot ulcer; L97.514 Non-pressure chronic ulcer of other part of right foot with necrosis of bone; E11.51 Type 2 diabetes mellitus with diabetic peripheral angiopathy without gangrene; E11.22 Type 2 diabetes mellitus with diabetic chronic kidney disease; N18.30 Chronic kidney disease, stage 3 unspecified | CPT/HCPCS: J3370 ==

== ENCOUNTER 2021-04-21 05:57 | Day surgery (SDC) | payer OTHER ==
[2021-04-21 08:47] LABS: Creatinine, Blood 1.58 mg/dL (0.60-1.20); Glomerular Filtration Rate 42 (60-); Vancomycin, Random 20.2 ug/mL
== END 2021-04-21 10:30 | disposition home or self-care (01) ==
LOC: ATC 05:57
PROVIDERS: Nurse Practitioner Family
DX: M86.272 Subacute osteomyelitis, left ankle and foot (principal); M86.271 Subacute osteomyelitis, right ankle and foot; L97.324 Non-pressure chronic ulcer of left ankle with necrosis of bone; L97.514 Non-pressure chronic ulcer of other part of right foot with necrosis of bone; Z88.0 Allergy status to penicillin; Z88.2 Allergy status to sulfonamides; Z88.8 Allergy status to other drugs, medicaments and biological substances; K21.9 Gastro-esophageal reflux disease without esophagitis
CPT/HCPCS: 36415; 80202; 82565; 96365; J3370

== ENCOUNTER 2021-04-22 05:23 | Day surgery (SDC) | payer OTHER | END 2021-04-22 08:48 | disposition home or self-care (01) | LOC: ATC 05:23 | DX: M86.272 Subacute osteomyelitis, left ankle and foot (principal); M86.271 Subacute osteomyelitis, right ankle and foot; L97.514 Non-pressure chronic ulcer of other part of right foot with necrosis of bone; L97.324 Non-pressure chronic ulcer of left ankle with necrosis of bone; K21.9 Gastro-esophageal reflux disease without esophagitis; Z88.0 Allergy status to penicillin; Z88.2 Allergy status to sulfonamides; Z88.8 Allergy status to other drugs, medicaments and biological substances | CPT/HCPCS: 96365; 99212; J3370 ==

== ENCOUNTER 2021-04-23 05:03 | Day surgery (SDC) | payer OTHER | END 2021-04-23 08:50 | disposition home or self-care (01) | LOC: ATC 05:03 | DX: E11.621 Type 2 diabetes mellitus with foot ulcer (principal); E11.622 Type 2 diabetes mellitus with other skin ulcer; I70.238 Atherosclerosis of native arteries of right leg with ulceration of other part of lower leg; E11.51 Type 2 diabetes mellitus with diabetic peripheral angiopathy without gangrene; L97.529 Non-pressure chronic ulcer of other part of left foot with unspecified severity; L97.512 Non-pressure chronic ulcer of other part of right foot with fat layer exposed; L97.522 Non-pressure chronic ulcer of other part of left foot with fat layer exposed; L97.812 Non-pressure chronic ulcer of other part of right lower leg with fat layer exposed; L97.315 Non-pressure chronic ulcer of right ankle with muscle involvement without evidence of necrosis; L97.326 Non-pressure chronic ulcer of left ankle with bone involvement without evidence of necrosis; L97.516 Non-pressure chronic ulcer of other part of right foot with bone involvement without evidence of necrosis; I11.0 Hypertensive heart disease with heart failure; I50.9 Heart failure, unspecified; K21.9 Gastro-esophageal reflux disease without esophagitis; J44.9 Chronic obstructive pulmonary disease, unspecified; Z88.0 Allergy status to penicillin; Z88.2 Allergy status to sulfonamides; Z88.8 Allergy status to other drugs, medicaments and biological substances | CPT/HCPCS: 96365; J3370 ==

== ENCOUNTER 2021-04-24 00:29 | Day surgery (SDC) | payer OTHER ==
[~2021-04-24] VITALS: Ht 177.8 cm; Wt 112.4 kg
[2021-04-24 08:27] LABS: Creatinine, Blood 1.67 mg/dL (0.60-1.20); Vancomycin, Trough 20.2 ug/mL (5.0-10.0)
== END 2021-04-24 09:57 | disposition home or self-care (01) ==
LOC: ATC 00:29
PROVIDERS: Nurse Practitioner Family
DX: M86.272 Subacute osteomyelitis, left ankle and foot (principal); M86.271 Subacute osteomyelitis, right ankle and foot; L97.324 Non-pressure chronic ulcer of left ankle with necrosis of bone; L97.514 Non-pressure chronic ulcer of other part of right foot with necrosis of bone; Z88.0 Allergy status to penicillin; Z88.2 Allergy status to sulfonamides; Z88.8 Allergy status to other drugs, medicaments and biological substances; K21.9 Gastro-esophageal reflux disease without esophagitis
CPT/HCPCS: 36415; 80202; 82565; 86140; 96365; J3370

== ENCOUNTER 2021-04-25 00:36 | Day surgery (SDC) | payer OTHER ==
--- NOTE | 2021-04-25 09:32 | NUR ---
LABS DRAWN VIA BUTTERFLY FROM RIGHT AC
== END 2021-04-25 09:18 | disposition home or self-care (01) ==
LOC: ATC 00:36
DX: M86.272 Subacute osteomyelitis, left ankle and foot (principal); M86.271 Subacute osteomyelitis, right ankle and foot; L97.324 Non-pressure chronic ulcer of left ankle with necrosis of bone; L97.514 Non-pressure chronic ulcer of other part of right foot with necrosis of bone; Z88.0 Allergy status to penicillin; Z88.2 Allergy status to sulfonamides; Z88.8 Allergy status to other drugs, medicaments and biological substances; K21.9 Gastro-esophageal reflux disease without esophagitis
CPT/HCPCS: 36415; 85651; 96365; J3370

== ENCOUNTER 2021-04-26 05:27 | Day surgery (SDC) | payer OTHER | END 2021-04-26 23:41 | disposition home or self-care (01) | LOC: WOUND 05:27 | DX: Z01.810 Encounter for preprocedural cardiovascular examination (principal); I70.213 Atherosclerosis of native arteries of extremities with intermittent claudication, bilateral legs; I44.0 Atrioventricular block, first degree | CPT/HCPCS: G0463 ==

== ENCOUNTER 2021-04-27 08:15 | Day surgery (SDC) | payer OTHER | END 2021-04-27 09:23 | disposition home or self-care (01) | LOC: ATC 08:15 | DX: E11.69 Type 2 diabetes mellitus with other specified complication (principal); E11.621 Type 2 diabetes mellitus with foot ulcer; E11.622 Type 2 diabetes mellitus with other skin ulcer; E11.51 Type 2 diabetes mellitus with diabetic peripheral angiopathy without gangrene; E11.22 Type 2 diabetes mellitus with diabetic chronic kidney disease; I12.9 Hypertensive chronic kidney disease with stage 1 through stage 4 chronic kidney disease, or unspecified chronic kidney disease; N18.30 Chronic kidney disease, stage 3 unspecified; M86.272 Subacute osteomyelitis, left ankle and foot; M86.271 Subacute osteomyelitis, right ankle and foot; L97.512 Non-pressure chronic ulcer of other part of right foot with fat layer exposed; L97.522 Non-pressure chronic ulcer of other part of left foot with fat layer exposed; L97.812 Non-pressure chronic ulcer of other part of right lower leg with fat layer exposed; L97.315 Non-pressure chronic ulcer of right ankle with muscle involvement without evidence of necrosis; L97.326 Non-pressure chronic ulcer of left ankle with bone involvement without evidence of necrosis; Z66 Do not resuscitate; Z79.4 Long term (current) use of insulin | CPT/HCPCS: J3370 ==

== ENCOUNTER 2021-04-28 07:21 | Day surgery (SDC) | payer OTHER | END 2021-04-28 08:58 | disposition home or self-care (01) | LOC: ATC 07:21 | DX: E11.69 Type 2 diabetes mellitus with other specified complication (principal); E11.621 Type 2 diabetes mellitus with foot ulcer; E11.622 Type 2 diabetes mellitus with other skin ulcer; E11.51 Type 2 diabetes mellitus with diabetic peripheral angiopathy without gangrene; E11.22 Type 2 diabetes mellitus with diabetic chronic kidney disease; I12.9 Hypertensive chronic kidney disease with stage 1 through stage 4 chronic kidney disease, or unspecified chronic kidney disease; N18.30 Chronic kidney disease, stage 3 unspecified; M86.272 Subacute osteomyelitis, left ankle and foot; M86.271 Subacute osteomyelitis, right ankle and foot; L97.512 Non-pressure chronic ulcer of other part of right foot with fat layer exposed; L97.522 Non-pressure chronic ulcer of other part of left foot with fat layer exposed; L97.812 Non-pressure chronic ulcer of other part of right lower leg with fat layer exposed; L97.315 Non-pressure chronic ulcer of right ankle with muscle involvement without evidence of necrosis; L97.326 Non-pressure chronic ulcer of left ankle with bone involvement without evidence of necrosis; Z79.4 Long term (current) use of insulin; Z66 Do not resuscitate | CPT/HCPCS: J3370 ==

== ENCOUNTER 2021-04-29 05:41 | Day surgery (SDC) | payer OTHER ==
--- NOTE | 2021-04-29 11:25 | NUR ---
AT 1058 SHANTELL 3ML OF BLOOD WITH A 23 GUAGE BUTTERFLY. CLEANED WITH CHLORAPREP, PATIENT TOLERATED PROCEDURE WELL.
[2021-04-29 11:37] LABS: Creatinine, Blood 1.69 mg/dL (0.60-1.20); Vancomycin, Trough 14.3 ug/mL (5.0-10.0)
== END 2021-04-29 13:00 | disposition home or self-care (01) ==
LOC: ATC 05:41
PROVIDERS: Nurse Practitioner Family
DX: E11.621 Type 2 diabetes mellitus with foot ulcer (principal); L97.514 Non-pressure chronic ulcer of other part of right foot with necrosis of bone; L97.512 Non-pressure chronic ulcer of other part of right foot with fat layer exposed; L97.522 Non-pressure chronic ulcer of other part of left foot with fat layer exposed; L97.528 Non-pressure chronic ulcer of other part of left foot with other specified severity; E11.622 Type 2 diabetes mellitus with other skin ulcer; L97.324 Non-pressure chronic ulcer of left ankle with necrosis of bone; L97.313 Non-pressure chronic ulcer of right ankle with necrosis of muscle; L97.812 Non-pressure chronic ulcer of other part of right lower leg with fat layer exposed; E11.51 Type 2 diabetes mellitus with diabetic peripheral angiopathy without gangrene; I87.2 Venous insufficiency (chronic) (peripheral); E11.22 Type 2 diabetes mellitus with diabetic chronic kidney disease; N18.30 Chronic kidney disease, stage 3 unspecified; E11.69 Type 2 diabetes mellitus with other specified complication; M86.272 Subacute osteomyelitis, left ankle and foot; M86.271 Subacute osteomyelitis, right ankle and foot; J44.9 Chronic obstructive pulmonary disease, unspecified; I13.0 Hypertensive heart and chronic kidney disease with heart failure and stage 1 through stage 4 chronic kidney disease, or unspecified chronic kidney disease; I50.9 Heart failure, unspecified; Z88.0 Allergy status to penicillin; Z88.2 Allergy status to sulfonamides; Z88.8 Allergy status to other drugs, medicaments and biological substances; Z66 Do not resuscitate
CPT/HCPCS: 80202; 82565; J3370

== ENCOUNTER 2021-04-29 05:52 | Day surgery (SDC) | payer OTHER | END 2021-04-29 23:21 | disposition home or self-care (01) | LOC: WOUND 05:52 | DX: L97.324 Non-pressure chronic ulcer of left ankle with necrosis of bone (principal); L97.514 Non-pressure chronic ulcer of other part of right foot with necrosis of bone; L97.312 Non-pressure chronic ulcer of right ankle with fat layer exposed; L97.522 Non-pressure chronic ulcer of other part of left foot with fat layer exposed; I73.9 Peripheral vascular disease, unspecified; I87.2 Venous insufficiency (chronic) (peripheral); R60.0 Localized edema; N18.30 Chronic kidney disease, stage 3 unspecified; M86.271 Subacute osteomyelitis, right ankle and foot; M86.272 Subacute osteomyelitis, left ankle and foot | CPT/HCPCS: G0463 ==

== ENCOUNTER 2021-04-30 01:57 | Day surgery (SDC) | payer OTHER | END 2021-04-30 08:45 | disposition home or self-care (01) | LOC: ATC 01:57 | DX: E11.51 Type 2 diabetes mellitus with diabetic peripheral angiopathy without gangrene (principal); L98.495 Non-pressure chronic ulcer of skin of other sites with muscle involvement without evidence of necrosis; L98.492 Non-pressure chronic ulcer of skin of other sites with fat layer exposed; L98.496 Non-pressure chronic ulcer of skin of other sites with bone involvement without evidence of necrosis; I70.25 Atherosclerosis of native arteries of other extremities with ulceration; E11.621 Type 2 diabetes mellitus with foot ulcer; L97.529 Non-pressure chronic ulcer of other part of left foot with unspecified severity; L97.512 Non-pressure chronic ulcer of other part of right foot with fat layer exposed; L97.522 Non-pressure chronic ulcer of other part of left foot with fat layer exposed; E11.69 Type 2 diabetes mellitus with other specified complication; M86.272 Subacute osteomyelitis, left ankle and foot; M86.271 Subacute osteomyelitis, right ankle and foot; L03.115 Cellulitis of right lower limb; I87.2 Venous insufficiency (chronic) (peripheral); J44.9 Chronic obstructive pulmonary disease, unspecified; I11.0 Hypertensive heart disease with heart failure; I50.9 Heart failure, unspecified; K21.9 Gastro-esophageal reflux disease without esophagitis; M19.90 Unspecified osteoarthritis, unspecified site; Z88.0 Allergy status to penicillin; Z88.8 Allergy status to other drugs, medicaments and biological substances; Z88.2 Allergy status to sulfonamides | CPT/HCPCS: 96365; J3370 ==

== ENCOUNTER 2021-05-01 02:22 | Day surgery (SDC) | payer OTHER | END 2021-05-01 08:42 | disposition home or self-care (01) | LOC: ATC 02:22 | DX: E11.51 Type 2 diabetes mellitus with diabetic peripheral angiopathy without gangrene (principal); L98.495 Non-pressure chronic ulcer of skin of other sites with muscle involvement without evidence of necrosis; L97.812 Non-pressure chronic ulcer of other part of right lower leg with fat layer exposed; L97.512 Non-pressure chronic ulcer of other part of right foot with fat layer exposed; I70.25 Atherosclerosis of native arteries of other extremities with ulceration; I70.238 Atherosclerosis of native arteries of right leg with ulceration of other part of lower leg; L97.522 Non-pressure chronic ulcer of other part of left foot with fat layer exposed; L97.529 Non-pressure chronic ulcer of other part of left foot with unspecified severity; E11.621 Type 2 diabetes mellitus with foot ulcer; L97.516 Non-pressure chronic ulcer of other part of right foot with bone involvement without evidence of necrosis; L98.492 Non-pressure chronic ulcer of skin of other sites with fat layer exposed; L03.115 Cellulitis of right lower limb; I87.2 Venous insufficiency (chronic) (peripheral); E11.69 Type 2 diabetes mellitus with other specified complication; M86.272 Subacute osteomyelitis, left ankle and foot; M86.271 Subacute osteomyelitis, right ankle and foot; I13.0 Hypertensive heart and chronic kidney disease with heart failure and stage 1 through stage 4 chronic kidney disease, or unspecified chronic kidney disease; I50.9 Heart failure, unspecified; N18.30 Chronic kidney disease, stage 3 unspecified; E11.22 Type 2 diabetes mellitus with diabetic chronic kidney disease; J44.9 Chronic obstructive pulmonary disease, unspecified; K21.9 Gastro-esophageal reflux disease without esophagitis; Z88.8 Allergy status to other drugs, medicaments and biological substances; Z88.2 Allergy status to sulfonamides; Z88.0 Allergy status to penicillin | CPT/HCPCS: 96365; J3370 ==

== ENCOUNTER 2021-05-01 02:27 | Day surgery (SDC) | payer OTHER | END 2021-05-01 12:00 | disposition home or self-care (01) | LOC: WOUND 02:27 | DX: E11.621 Type 2 diabetes mellitus with foot ulcer (principal); L97.514 Non-pressure chronic ulcer of other part of right foot with necrosis of bone; L97.522 Non-pressure chronic ulcer of other part of left foot with fat layer exposed; L97.512 Non-pressure chronic ulcer of other part of right foot with fat layer exposed; E11.622 Type 2 diabetes mellitus with other skin ulcer; L97.324 Non-pressure chronic ulcer of left ankle with necrosis of bone; L97.312 Non-pressure chronic ulcer of right ankle with fat layer exposed; E11.51 Type 2 diabetes mellitus with diabetic peripheral angiopathy without gangrene; I87.2 Venous insufficiency (chronic) (peripheral); N18.30 Chronic kidney disease, stage 3 unspecified; E11.22 Type 2 diabetes mellitus with diabetic chronic kidney disease; M86.271 Subacute osteomyelitis, right ankle and foot; M86.272 Subacute osteomyelitis, left ankle and foot; R60.0 Localized edema | CPT/HCPCS: A9270 ==

== ENCOUNTER 2021-05-02 07:59 | Day surgery (SDC) | payer OTHER ==
[2021-05-02 09:18] LABS: Creatinine, Blood 1.75 mg/dL (0.60-1.20); Vancomycin, Trough 15.2 ug/mL (5.0-10.0)
--- NOTE | 2021-05-02 11:21 | NUR ---
ATTEMPTED TO DRAW VANCO TROUGH 3 TIMES. UNABLE TO DRAW BLOOD. LAB CALLED TO DRAW BLOOD.
== END 2021-05-02 10:26 | disposition home or self-care (01) ==
LOC: ATC 07:59
PROVIDERS: Nurse Practitioner Family
DX: E11.621 Type 2 diabetes mellitus with foot ulcer (principal); L97.529 Non-pressure chronic ulcer of other part of left foot with unspecified severity; L97.512 Non-pressure chronic ulcer of other part of right foot with fat layer exposed; L97.522 Non-pressure chronic ulcer of other part of left foot with fat layer exposed; E11.51 Type 2 diabetes mellitus with diabetic peripheral angiopathy without gangrene; L97.812 Non-pressure chronic ulcer of other part of right lower leg with fat layer exposed; I70.238 Atherosclerosis of native arteries of right leg with ulceration of other part of lower leg; E11.622 Type 2 diabetes mellitus with other skin ulcer; L97.315 Non-pressure chronic ulcer of right ankle with muscle involvement without evidence of necrosis; L97.326 Non-pressure chronic ulcer of left ankle with bone involvement without evidence of necrosis; L97.516 Non-pressure chronic ulcer of other part of right foot with bone involvement without evidence of necrosis; L03.115 Cellulitis of right lower limb; J44.9 Chronic obstructive pulmonary disease, unspecified; I11.0 Hypertensive heart disease with heart failure; I50.9 Heart failure, unspecified; K21.9 Gastro-esophageal reflux disease without esophagitis; Z88.8 Allergy status to other drugs, medicaments and biological substances; Z88.0 Allergy status to penicillin; Z88.2 Allergy status to sulfonamides
CPT/HCPCS: 36415; 80202; 82565; 96365; J3370

== ENCOUNTER 2021-05-03 05:53 | Day surgery (SDC) | payer OTHER | END 2021-05-03 10:11 | disposition home or self-care (01) | LOC: ATC 05:53 | DX: E11.51 Type 2 diabetes mellitus with diabetic peripheral angiopathy without gangrene (principal); L98.495 Non-pressure chronic ulcer of skin of other sites with muscle involvement without evidence of necrosis; L97.812 Non-pressure chronic ulcer of other part of right lower leg with fat layer exposed; L97.512 Non-pressure chronic ulcer of other part of right foot with fat layer exposed; I70.25 Atherosclerosis of native arteries of other extremities with ulceration; I70.238 Atherosclerosis of native arteries of right leg with ulceration of other part of lower leg; L97.522 Non-pressure chronic ulcer of other part of left foot with fat layer exposed; L97.529 Non-pressure chronic ulcer of other part of left foot with unspecified severity; E11.621 Type 2 diabetes mellitus with foot ulcer; L97.516 Non-pressure chronic ulcer of other part of right foot with bone involvement without evidence of necrosis; L98.492 Non-pressure chronic ulcer of skin of other sites with fat layer exposed; L03.115 Cellulitis of right lower limb; I87.2 Venous insufficiency (chronic) (peripheral); E11.69 Type 2 diabetes mellitus with other specified complication; M86.272 Subacute osteomyelitis, left ankle and foot; M86.271 Subacute osteomyelitis, right ankle and foot; I13.0 Hypertensive heart and chronic kidney disease with heart failure and stage 1 through stage 4 chronic kidney disease, or unspecified chronic kidney disease; I50.9 Heart failure, unspecified; N18.30 Chronic kidney disease, stage 3 unspecified; E11.22 Type 2 diabetes mellitus with diabetic chronic kidney disease; J44.9 Chronic obstructive pulmonary disease, unspecified; K21.9 Gastro-esophageal reflux disease without esophagitis; Z88.8 Allergy status to other drugs, medicaments and biological substances; Z88.2 Allergy status to sulfonamides; Z88.0 Allergy status to penicillin | CPT/HCPCS: 96365; J3370 ==

== ENCOUNTER 2021-05-04 09:08 | Day surgery (SDC) | payer OTHER | END 2021-05-04 09:10 | disposition home or self-care (01) | LOC: ATC 09:08 | DX: E11.51 Type 2 diabetes mellitus with diabetic peripheral angiopathy without gangrene (principal); L98.495 Non-pressure chronic ulcer of skin of other sites with muscle involvement without evidence of necrosis; L97.812 Non-pressure chronic ulcer of other part of right lower leg with fat layer exposed; L97.512 Non-pressure chronic ulcer of other part of right foot with fat layer exposed; I70.25 Atherosclerosis of native arteries of other extremities with ulceration; I70.238 Atherosclerosis of native arteries of right leg with ulceration of other part of lower leg; L97.522 Non-pressure chronic ulcer of other part of left foot with fat layer exposed; L97.529 Non-pressure chronic ulcer of other part of left foot with unspecified severity; E11.621 Type 2 diabetes mellitus with foot ulcer; L97.516 Non-pressure chronic ulcer of other part of right foot with bone involvement without evidence of necrosis; L98.492 Non-pressure chronic ulcer of skin of other sites with fat layer exposed; L03.115 Cellulitis of right lower limb; I87.2 Venous insufficiency (chronic) (peripheral); E11.69 Type 2 diabetes mellitus with other specified complication; M86.272 Subacute osteomyelitis, left ankle and foot; M86.271 Subacute osteomyelitis, right ankle and foot; I13.0 Hypertensive heart and chronic kidney disease with heart failure and stage 1 through stage 4 chronic kidney disease, or unspecified chronic kidney disease; I50.9 Heart failure, unspecified; N18.30 Chronic kidney disease, stage 3 unspecified; E11.22 Type 2 diabetes mellitus with diabetic chronic kidney disease; J44.9 Chronic obstructive pulmonary disease, unspecified; K21.9 Gastro-esophageal reflux disease without esophagitis; Z88.8 Allergy status to other drugs, medicaments and biological substances; Z88.2 Allergy status to sulfonamides; Z88.0 Allergy status to penicillin | CPT/HCPCS: 96365; J3370 ==

== ENCOUNTER 2021-05-05 07:25 | Day surgery (SDC) | payer OTHER | END 2021-05-05 08:34 | disposition home or self-care (01) | LOC: ATC 07:25 | DX: E11.51 Type 2 diabetes mellitus with diabetic peripheral angiopathy without gangrene (principal); L98.495 Non-pressure chronic ulcer of skin of other sites with muscle involvement without evidence of necrosis; L97.812 Non-pressure chronic ulcer of other part of right lower leg with fat layer exposed; L97.512 Non-pressure chronic ulcer of other part of right foot with fat layer exposed; I70.25 Atherosclerosis of native arteries of other extremities with ulceration; I70.238 Atherosclerosis of native arteries of right leg with ulceration of other part of lower leg; L97.522 Non-pressure chronic ulcer of other part of left foot with fat layer exposed; L97.529 Non-pressure chronic ulcer of other part of left foot with unspecified severity; E11.621 Type 2 diabetes mellitus with foot ulcer; L97.516 Non-pressure chronic ulcer of other part of right foot with bone involvement without evidence of necrosis; L98.492 Non-pressure chronic ulcer of skin of other sites with fat layer exposed; L03.115 Cellulitis of right lower limb; I87.2 Venous insufficiency (chronic) (peripheral); E11.69 Type 2 diabetes mellitus with other specified complication; M86.272 Subacute osteomyelitis, left ankle and foot; M86.271 Subacute osteomyelitis, right ankle and foot; I13.0 Hypertensive heart and chronic kidney disease with heart failure and stage 1 through stage 4 chronic kidney disease, or unspecified chronic kidney disease; I50.9 Heart failure, unspecified; N18.30 Chronic kidney disease, stage 3 unspecified; E11.22 Type 2 diabetes mellitus with diabetic chronic kidney disease; J44.9 Chronic obstructive pulmonary disease, unspecified; K21.9 Gastro-esophageal reflux disease without esophagitis; Z88.8 Allergy status to other drugs, medicaments and biological substances; Z88.2 Allergy status to sulfonamides; Z88.0 Allergy status to penicillin | CPT/HCPCS: 96365; J3370 ==

== ENCOUNTER 2021-05-06 04:34 | Day surgery (SDC) | payer OTHER | END 2021-05-06 08:34 | disposition home or self-care (01) | LOC: ATC 04:34 | DX: E11.51 Type 2 diabetes mellitus with diabetic peripheral angiopathy without gangrene (principal); L98.496 Non-pressure chronic ulcer of skin of other sites with bone involvement without evidence of necrosis; L98.495 Non-pressure chronic ulcer of skin of other sites with muscle involvement without evidence of necrosis; L97.812 Non-pressure chronic ulcer of other part of right lower leg with fat layer exposed; I70.238 Atherosclerosis of native arteries of right leg with ulceration of other part of lower leg; I70.25 Atherosclerosis of native arteries of other extremities with ulceration; E11.621 Type 2 diabetes mellitus with foot ulcer; L97.529 Non-pressure chronic ulcer of other part of left foot with unspecified severity; L97.512 Non-pressure chronic ulcer of other part of right foot with fat layer exposed; L97.522 Non-pressure chronic ulcer of other part of left foot with fat layer exposed; E11.69 Type 2 diabetes mellitus with other specified complication; M86.272 Subacute osteomyelitis, left ankle and foot; M86.271 Subacute osteomyelitis, right ankle and foot; I87.2 Venous insufficiency (chronic) (peripheral); L03.115 Cellulitis of right lower limb; I13.0 Hypertensive heart and chronic kidney disease with heart failure and stage 1 through stage 4 chronic kidney disease, or unspecified chronic kidney disease; I50.9 Heart failure, unspecified; E11.22 Type 2 diabetes mellitus with diabetic chronic kidney disease; J44.9 Chronic obstructive pulmonary disease, unspecified; K21.9 Gastro-esophageal reflux disease without esophagitis; Z88.8 Allergy status to other drugs, medicaments and biological substances; Z88.0 Allergy status to penicillin; Z88.2 Allergy status to sulfonamides | CPT/HCPCS: 96365; J3370 ==

== ENCOUNTER 2021-05-06 05:28 | Day surgery (SDC) | payer OTHER | END 2021-05-06 23:00 | disposition home or self-care (01) | LOC: WOUND 05:28 | DX: L97.324 Non-pressure chronic ulcer of left ankle with necrosis of bone (principal); L97.514 Non-pressure chronic ulcer of other part of right foot with necrosis of bone; L97.312 Non-pressure chronic ulcer of right ankle with fat layer exposed; L97.522 Non-pressure chronic ulcer of other part of left foot with fat layer exposed; I73.9 Peripheral vascular disease, unspecified; I87.2 Venous insufficiency (chronic) (peripheral); R60.0 Localized edema; N18.30 Chronic kidney disease, stage 3 unspecified; M86.271 Subacute osteomyelitis, right ankle and foot; M86.272 Subacute osteomyelitis, left ankle and foot | CPT/HCPCS: G0463 ==

== ENCOUNTER 2021-05-07 01:13 | Day surgery (SDC) | payer OTHER | END 2021-05-07 08:30 | disposition home or self-care (01) | LOC: ATC 01:13 | DX: E11.51 Type 2 diabetes mellitus with diabetic peripheral angiopathy without gangrene (principal); L97.812 Non-pressure chronic ulcer of other part of right lower leg with fat layer exposed; L98.495 Non-pressure chronic ulcer of skin of other sites with muscle involvement without evidence of necrosis; L98.492 Non-pressure chronic ulcer of skin of other sites with fat layer exposed; I70.238 Atherosclerosis of native arteries of right leg with ulceration of other part of lower leg; I70.25 Atherosclerosis of native arteries of other extremities with ulceration; E11.621 Type 2 diabetes mellitus with foot ulcer; L97.529 Non-pressure chronic ulcer of other part of left foot with unspecified severity; L97.512 Non-pressure chronic ulcer of other part of right foot with fat layer exposed; L97.522 Non-pressure chronic ulcer of other part of left foot with fat layer exposed; E11.69 Type 2 diabetes mellitus with other specified complication; M86.272 Subacute osteomyelitis, left ankle and foot; M86.271 Subacute osteomyelitis, right ankle and foot; L03.115 Cellulitis of right lower limb; I87.2 Venous insufficiency (chronic) (peripheral); I13.0 Hypertensive heart and chronic kidney disease with heart failure and stage 1 through stage 4 chronic kidney disease, or unspecified chronic kidney disease; I50.9 Heart failure, unspecified; N18.30 Chronic kidney disease, stage 3 unspecified; E11.22 Type 2 diabetes mellitus with diabetic chronic kidney disease; K21.9 Gastro-esophageal reflux disease without esophagitis; J44.9 Chronic obstructive pulmonary disease, unspecified; Z88.8 Allergy status to other drugs, medicaments and biological substances; Z88.0 Allergy status to penicillin; Z88.2 Allergy status to sulfonamides | CPT/HCPCS: 96365; J3370 ==

== ENCOUNTER 2021-05-10 04:33 | Day surgery (SDC) | payer OTHER ==
[~2021-05-10 04:33] MED LIST changes: -CLOBET30L TOP; -NOVOLOG FL100 UNIT/3 SQ
[2021-05-10] MEDS ORDERED: DOXY100 PO (15:04)
== END 2021-05-10 23:37 | disposition home or self-care (01) ==
LOC: WOUND 04:33
DX: E11.621 Type 2 diabetes mellitus with foot ulcer (principal); L97.514 Non-pressure chronic ulcer of other part of right foot with necrosis of bone; L97.515 Non-pressure chronic ulcer of other part of right foot with muscle involvement without evidence of necrosis; L97.512 Non-pressure chronic ulcer of other part of right foot with fat layer exposed; L97.522 Non-pressure chronic ulcer of other part of left foot with fat layer exposed; L97.325 Non-pressure chronic ulcer of left ankle with muscle involvement without evidence of necrosis; L97.312 Non-pressure chronic ulcer of right ankle with fat layer exposed; E11.51 Type 2 diabetes mellitus with diabetic peripheral angiopathy without gangrene; I87.2 Venous insufficiency (chronic) (peripheral); R60.0 Localized edema; N18.30 Chronic kidney disease, stage 3 unspecified; M86.271 Subacute osteomyelitis, right ankle and foot; M86.272 Subacute osteomyelitis, left ankle and foot
CPT/HCPCS: A9270

== ENCOUNTER → 2021-05-10 | Outpatient (CLI) | payer OTHER ==
[~2021-05-10] MED LIST changes: +CLOBET30L TOP; +NOVOLOG FL100 UNIT/3 SQ
[2021-05-10 10:55] LABS: Hematocrit 33.7 % (37.0-53.0); Hemoglobin 10.6 g/dL (13.5-17.5); Mean Corpuscular HGB 28.2 pg (26.0-34.0); Mean Corpuscular HGB Conc 31.5 g/dL (31.5-36.5); Mean Corpuscular Volume 90 fL (80-100); Mean Platelet Volume 10.1 fL (9.1-12.4); Platelet Count 251 K/mm3 (150-400); RDW Coefficient Variation 14.7 % (11.7-14.2); RDW Standard Deviation 47.8 fL (35.1-46.3); Red Blood Cell Count 3.76 M/mm3 (4.30-5.90); White Blood Cell Count 11.41 K/mm3 (4.00-11.30)
[2021-05-10 11:21] LABS: International Normalized Ratio 0.99; Prothrombin Time Results 10.4 Sec (9.7-11.5)
[2021-05-10 11:25] LABS: Bun/Creatinine Ratio 25.2 (12.0-20.0); Calcium, Blood 8.6 mg/dL (8.5-10.1); Creatinine, Blood 2.02 mg/dL (0.60-1.20); Potassium, Blood 4.7 mmol/L (3.5-5.5)
[2021-05-10 12:14] LABS: BAND PERCENT MAN 1 % (0-8); BASOPHILS ABSOLUTE MAN 0.11 K/mm3 (0.00-0.23); BASOPHILS PERCENT MAN 1 % (0-2); EOSINOPHILS ABSOLUTE MAN 0.22 K/mm3 (0.00-0.68); EOSINOPHILS PERCENT MAN 2 % (0-6); LYMPHOCYTES ABSOLUTE MAN 2.39 K/mm3 (0.84-5.20); LYMPHOCYTES PERCENT MAN 21 % (21-46); MONOCYTES ABSOLUTE MAN 0.91 K/mm3 (0.16-1.47); MONOCYTES PERCENT MAN 8 % (4-13); MYELOCYTE ABSOLUTE MAN 0.11 K/mm3 (0.00-0.00); MYELOCYTE PERCENT MAN 1 % (0-0); NEUTROPHILS ABSOLUTE MAN 7.64 K/mm3 (1.96-9.15); SEG NEUTROPHILS PERCENT MAN 66 % (41-73); TOTAL CELLS COUNTED 100
== END | disposition home or self-care (01) ==
LOC: LAB SHORT 10:33 → LAB 10:33
PROVIDERS: Radiology Diagnostic Radiology
DX: I70.213 Atherosclerosis of native arteries of extremities with intermittent claudication, bilateral legs (principal); L97.909 Non-pressure chronic ulcer of unspecified part of unspecified lower leg with unspecified severity
CPT/HCPCS: 80048; 85007; 85027; 85610

== ENCOUNTER 2021-05-13 01:22 | Day surgery (SDC) | payer OTHER ==
[2021-05-13] MEDS ORDERED: CLOBET30L TOP (09:55)
[2021-05-13] MEDS ORDERED: NOVOLOG FL100 UNIT/3 SQ (09:57)
== END 2021-05-13 23:23 | disposition home or self-care (01) ==
LOC: WOUND 01:22
DX: L97.324 Non-pressure chronic ulcer of left ankle with necrosis of bone (principal); L97.514 Non-pressure chronic ulcer of other part of right foot with necrosis of bone; L97.312 Non-pressure chronic ulcer of right ankle with fat layer exposed; L97.522 Non-pressure chronic ulcer of other part of left foot with fat layer exposed; I73.9 Peripheral vascular disease, unspecified; I87.2 Venous insufficiency (chronic) (peripheral); R60.0 Localized edema; N18.30 Chronic kidney disease, stage 3 unspecified; M86.271 Subacute osteomyelitis, right ankle and foot; M86.272 Subacute osteomyelitis, left ankle and foot
CPT/HCPCS: G0463

== ENCOUNTER 2021-05-17 04:24 | Day surgery (SDC) | payer OTHER ==
[~2021-05-17 04:24] MED LIST changes: +CLOBET30L TOP; +NOVOLOG FL100 UNIT/3 SQ
== END 2021-05-17 22:58 | disposition home or self-care (01) ==
LOC: WOUND 04:24
DX: L97.325 Non-pressure chronic ulcer of left ankle with muscle involvement without evidence of necrosis (principal); L97.315 Non-pressure chronic ulcer of right ankle with muscle involvement without evidence of necrosis; L97.312 Non-pressure chronic ulcer of right ankle with fat layer exposed; E11.621 Type 2 diabetes mellitus with foot ulcer; L97.522 Non-pressure chronic ulcer of other part of left foot with fat layer exposed; L97.512 Non-pressure chronic ulcer of other part of right foot with fat layer exposed; E11.51 Type 2 diabetes mellitus with diabetic peripheral angiopathy without gangrene; I87.2 Venous insufficiency (chronic) (peripheral); R60.0 Localized edema; N18.30 Chronic kidney disease, stage 3 unspecified; M86.271 Subacute osteomyelitis, right ankle and foot; M86.272 Subacute osteomyelitis, left ankle and foot
CPT/HCPCS: A9270

== ENCOUNTER 2021-05-20 03:39 | Day surgery (SDC) | payer OTHER | END 2021-05-20 23:07 | disposition home or self-care (01) | LOC: WOUND 03:39 | DX: L97.325 Non-pressure chronic ulcer of left ankle with muscle involvement without evidence of necrosis (principal); L97.315 Non-pressure chronic ulcer of right ankle with muscle involvement without evidence of necrosis; L97.512 Non-pressure chronic ulcer of other part of right foot with fat layer exposed; L97.522 Non-pressure chronic ulcer of other part of left foot with fat layer exposed; I73.9 Peripheral vascular disease, unspecified; I87.2 Venous insufficiency (chronic) (peripheral); R60.0 Localized edema; N18.30 Chronic kidney disease, stage 3 unspecified; M86.271 Subacute osteomyelitis, right ankle and foot; M86.272 Subacute osteomyelitis, left ankle and foot | CPT/HCPCS: A9270 ==

== ENCOUNTER 2021-05-22 05:11 | Day surgery (SDC) | payer OTHER | END 2021-05-22 23:40 | disposition home or self-care (01) | LOC: WOUND 05:11 | DX: L97.324 Non-pressure chronic ulcer of left ankle with necrosis of bone (principal); L97.514 Non-pressure chronic ulcer of other part of right foot with necrosis of bone; L97.312 Non-pressure chronic ulcer of right ankle with fat layer exposed; L97.522 Non-pressure chronic ulcer of other part of left foot with fat layer exposed; I73.9 Peripheral vascular disease, unspecified; I87.2 Venous insufficiency (chronic) (peripheral); R60.0 Localized edema; N18.30 Chronic kidney disease, stage 3 unspecified; M86.271 Subacute osteomyelitis, right ankle and foot; M86.272 Subacute osteomyelitis, left ankle and foot | CPT/HCPCS: G0463 ==

== ENCOUNTER 2021-05-27 03:01 | Day surgery (SDC) | payer OTHER | END 2021-05-27 22:54 | disposition home or self-care (01) | LOC: WOUND 03:01 | DX: L97.324 Non-pressure chronic ulcer of left ankle with necrosis of bone (principal); L97.514 Non-pressure chronic ulcer of other part of right foot with necrosis of bone; L97.312 Non-pressure chronic ulcer of right ankle with fat layer exposed; L97.522 Non-pressure chronic ulcer of other part of left foot with fat layer exposed; I73.9 Peripheral vascular disease, unspecified; I87.2 Venous insufficiency (chronic) (peripheral); R60.0 Localized edema; N18.30 Chronic kidney disease, stage 3 unspecified; M86.271 Subacute osteomyelitis, right ankle and foot; M86.272 Subacute osteomyelitis, left ankle and foot | CPT/HCPCS: G0463 ==

== ENCOUNTER 2021-05-29 01:59 | Day surgery (SDC) | payer OTHER | END 2021-05-29 23:12 | disposition home or self-care (01) | LOC: WOUND 01:59 | DX: E11.622 Type 2 diabetes mellitus with other skin ulcer (principal); L97.315 Non-pressure chronic ulcer of right ankle with muscle involvement without evidence of necrosis; L97.325 Non-pressure chronic ulcer of left ankle with muscle involvement without evidence of necrosis; E11.621 Type 2 diabetes mellitus with foot ulcer; L97.512 Non-pressure chronic ulcer of other part of right foot with fat layer exposed; L97.519 Non-pressure chronic ulcer of other part of right foot with unspecified severity; L97.529 Non-pressure chronic ulcer of other part of left foot with unspecified severity; I73.9 Peripheral vascular disease, unspecified; I87.2 Venous insufficiency (chronic) (peripheral); R60.0 Localized edema; N18.30 Chronic kidney disease, stage 3 unspecified; M86.271 Subacute osteomyelitis, right ankle and foot; M86.272 Subacute osteomyelitis, left ankle and foot | CPT/HCPCS: A9270 ==

== ENCOUNTER 2021-05-31 01:45 | Day surgery (SDC) | payer OTHER | END 2021-05-31 12:00 | disposition home or self-care (01) | LOC: WOUND 01:45 | DX: L97.324 Non-pressure chronic ulcer of left ankle with necrosis of bone (principal); L97.514 Non-pressure chronic ulcer of other part of right foot with necrosis of bone; L97.312 Non-pressure chronic ulcer of right ankle with fat layer exposed; L97.522 Non-pressure chronic ulcer of other part of left foot with fat layer exposed; I73.9 Peripheral vascular disease, unspecified; I87.2 Venous insufficiency (chronic) (peripheral); R60.0 Localized edema; N18.30 Chronic kidney disease, stage 3 unspecified; M86.271 Subacute osteomyelitis, right ankle and foot; M86.272 Subacute osteomyelitis, left ankle and foot | CPT/HCPCS: G0463 ==

== ENCOUNTER 2021-06-03 03:46 | Day surgery (SDC) | payer OTHER | END 2021-06-03 12:00 | disposition home or self-care (01) | LOC: WOUND 03:46 | DX: L97.324 Non-pressure chronic ulcer of left ankle with necrosis of bone (principal); L97.514 Non-pressure chronic ulcer of other part of right foot with necrosis of bone; L97.312 Non-pressure chronic ulcer of right ankle with fat layer exposed; L97.522 Non-pressure chronic ulcer of other part of left foot with fat layer exposed; M86.272 Subacute osteomyelitis, left ankle and foot; I73.9 Peripheral vascular disease, unspecified; I87.2 Venous insufficiency (chronic) (peripheral); R60.0 Localized edema; N18.30 Chronic kidney disease, stage 3 unspecified; M86.271 Subacute osteomyelitis, right ankle and foot | CPT/HCPCS: G0463 ==

== ENCOUNTER 2021-06-05 00:27 | Day surgery (SDC) | payer OTHER | END 2021-06-05 23:17 | disposition home or self-care (01) | LOC: WOUND 00:27 | PROC: 0JBP0ZZ Excision of Left Lower Leg Subcutaneous Tissue and Fascia, Open Approach (ICD-10-PCS; principal; 2021-06-05) | PROC: 0JBN0ZZ Excision of Right Lower Leg Subcutaneous Tissue and Fascia, Open Approach (ICD-10-PCS; principal; 2021-06-05) | PROC: 0JBR0ZZ Excision of Left Foot Subcutaneous Tissue and Fascia, Open Approach (ICD-10-PCS; principal; 2021-06-05) | PROC: 0JBQ0ZZ Excision of Right Foot Subcutaneous Tissue and Fascia, Open Approach (ICD-10-PCS; principal; 2021-06-05) | DX: E11.51 Type 2 diabetes mellitus with diabetic peripheral angiopathy without gangrene (principal); I70.25 Atherosclerosis of native arteries of other extremities with ulceration; E11.621 Type 2 diabetes mellitus with foot ulcer; E11.622 Type 2 diabetes mellitus with other skin ulcer; L97.512 Non-pressure chronic ulcer of other part of right foot with fat layer exposed; L97.529 Non-pressure chronic ulcer of other part of left foot with unspecified severity; L97.819 Non-pressure chronic ulcer of other part of right lower leg with unspecified severity; L98.492 Non-pressure chronic ulcer of skin of other sites with fat layer exposed; L97.812 Non-pressure chronic ulcer of other part of right lower leg with fat layer exposed; L97.318 Non-pressure chronic ulcer of right ankle with other specified severity; L97.325 Non-pressure chronic ulcer of left ankle with muscle involvement without evidence of necrosis; I87.2 Venous insufficiency (chronic) (peripheral); N18.30 Chronic kidney disease, stage 3 unspecified; E11.22 Type 2 diabetes mellitus with diabetic chronic kidney disease; E11.69 Type 2 diabetes mellitus with other specified complication; M86.272 Subacute osteomyelitis, left ankle and foot; M86.271 Subacute osteomyelitis, right ankle and foot | CPT/HCPCS: A9270 ==

== ENCOUNTER 2021-06-07 01:52 | Day surgery (SDC) | payer OTHER | END 2021-06-07 23:05 | disposition home or self-care (01) | LOC: WOUND 01:52 | DX: L97.324 Non-pressure chronic ulcer of left ankle with necrosis of bone (principal); L97.514 Non-pressure chronic ulcer of other part of right foot with necrosis of bone; L97.312 Non-pressure chronic ulcer of right ankle with fat layer exposed; L97.522 Non-pressure chronic ulcer of other part of left foot with fat layer exposed; I73.9 Peripheral vascular disease, unspecified; I87.2 Venous insufficiency (chronic) (peripheral); R60.0 Localized edema; N18.30 Chronic kidney disease, stage 3 unspecified; M86.271 Subacute osteomyelitis, right ankle and foot; M86.272 Subacute osteomyelitis, left ankle and foot | CPT/HCPCS: G0463 ==

== ENCOUNTER 2021-06-10 02:43 | Day surgery (SDC) | payer OTHER | END 2021-06-10 22:52 | disposition home or self-care (01) | LOC: WOUND 02:43 | DX: L97.312 Non-pressure chronic ulcer of right ankle with fat layer exposed (principal); L97.324 Non-pressure chronic ulcer of left ankle with necrosis of bone; L97.522 Non-pressure chronic ulcer of other part of left foot with fat layer exposed; L97.514 Non-pressure chronic ulcer of other part of right foot with necrosis of bone; I73.9 Peripheral vascular disease, unspecified; I87.2 Venous insufficiency (chronic) (peripheral); R60.0 Localized edema; N18.30 Chronic kidney disease, stage 3 unspecified; M86.271 Subacute osteomyelitis, right ankle and foot; M86.272 Subacute osteomyelitis, left ankle and foot | CPT/HCPCS: G0463 ==

== ENCOUNTER 2021-06-12 02:49 | Day surgery (SDC) | payer OTHER | END 2021-06-12 23:06 | disposition home or self-care (01) | LOC: WOUND 02:49 | PROC: 0JBQ0ZZ Excision of Right Foot Subcutaneous Tissue and Fascia, Open Approach (ICD-10-PCS; principal; 2021-06-12) | DX: E11.51 Type 2 diabetes mellitus with diabetic peripheral angiopathy without gangrene (principal); L98.498 Non-pressure chronic ulcer of skin of other sites with other specified severity; L98.492 Non-pressure chronic ulcer of skin of other sites with fat layer exposed; L98.495 Non-pressure chronic ulcer of skin of other sites with muscle involvement without evidence of necrosis; I70.25 Atherosclerosis of native arteries of other extremities with ulceration; E11.69 Type 2 diabetes mellitus with other specified complication; M86.271 Subacute osteomyelitis, right ankle and foot; M86.272 Subacute osteomyelitis, left ankle and foot; E11.621 Type 2 diabetes mellitus with foot ulcer; L97.515 Non-pressure chronic ulcer of other part of right foot with muscle involvement without evidence of necrosis; L97.522 Non-pressure chronic ulcer of other part of left foot with fat layer exposed; S81.811A Laceration without foreign body, right lower leg, initial encounter; S51.812A Laceration without foreign body of left forearm, initial encounter; I87.2 Venous insufficiency (chronic) (peripheral); N18.30 Chronic kidney disease, stage 3 unspecified; E11.22 Type 2 diabetes mellitus with diabetic chronic kidney disease; X58.XXXA Exposure to other specified factors, initial encounter | CPT/HCPCS: 87070; 87075; 87077; 87186; 87205 ==

== ENCOUNTER 2021-06-14 05:17 | Day surgery (SDC) | payer OTHER | END 2021-06-14 23:55 | disposition home or self-care (01) | LOC: WOUND 05:17 | DX: L97.324 Non-pressure chronic ulcer of left ankle with necrosis of bone (principal); L97.312 Non-pressure chronic ulcer of right ankle with fat layer exposed; L97.522 Non-pressure chronic ulcer of other part of left foot with fat layer exposed; L97.514 Non-pressure chronic ulcer of other part of right foot with necrosis of bone; I73.9 Peripheral vascular disease, unspecified; I87.2 Venous insufficiency (chronic) (peripheral); R60.0 Localized edema; N18.30 Chronic kidney disease, stage 3 unspecified; M86.271 Subacute osteomyelitis, right ankle and foot; M86.272 Subacute osteomyelitis, left ankle and foot | CPT/HCPCS: G0463 ==

== ENCOUNTER 2021-06-17 03:24 | Day surgery (SDC) | payer OTHER | END 2021-06-17 22:43 | disposition home or self-care (01) | LOC: WOUND 03:24 | DX: L97.312 Non-pressure chronic ulcer of right ankle with fat layer exposed (principal); L97.324 Non-pressure chronic ulcer of left ankle with necrosis of bone; L97.522 Non-pressure chronic ulcer of other part of left foot with fat layer exposed; L97.514 Non-pressure chronic ulcer of other part of right foot with necrosis of bone; I73.9 Peripheral vascular disease, unspecified; I87.2 Venous insufficiency (chronic) (peripheral); R60.0 Localized edema; N18.30 Chronic kidney disease, stage 3 unspecified; M86.271 Subacute osteomyelitis, right ankle and foot; M86.272 Subacute osteomyelitis, left ankle and foot | CPT/HCPCS: G0463 ==

== ENCOUNTER 2021-06-24 03:36 | Day surgery (SDC) | payer OTHER | END 2021-06-24 12:00 | disposition home or self-care (01) | LOC: WOUND 03:36 | DX: L97.324 Non-pressure chronic ulcer of left ankle with necrosis of bone (principal); L97.514 Non-pressure chronic ulcer of other part of right foot with necrosis of bone; L97.312 Non-pressure chronic ulcer of right ankle with fat layer exposed; L97.522 Non-pressure chronic ulcer of other part of left foot with fat layer exposed; I87.2 Venous insufficiency (chronic) (peripheral); I73.9 Peripheral vascular disease, unspecified; R60.0 Localized edema; N18.30 Chronic kidney disease, stage 3 unspecified; M86.271 Subacute osteomyelitis, right ankle and foot; M86.272 Subacute osteomyelitis, left ankle and foot | CPT/HCPCS: G0463 ==

== ENCOUNTER 2021-06-26 03:33 | Day surgery (SDC) | payer OTHER, MEDICARE | END 2021-06-27 12:00 | disposition home or self-care (01) | LOC: WOUND 03:33 | DX: L97.324 Non-pressure chronic ulcer of left ankle with necrosis of bone (principal); L97.514 Non-pressure chronic ulcer of other part of right foot with necrosis of bone; L97.312 Non-pressure chronic ulcer of right ankle with fat layer exposed; L97.522 Non-pressure chronic ulcer of other part of left foot with fat layer exposed; I73.9 Peripheral vascular disease, unspecified; I87.2 Venous insufficiency (chronic) (peripheral); R60.0 Localized edema; N18.30 Chronic kidney disease, stage 3 unspecified; M86.271 Subacute osteomyelitis, right ankle and foot; M86.272 Subacute osteomyelitis, left ankle and foot | CPT/HCPCS: G0463 ==

== ENCOUNTER 2021-07-10 01:42 | Day surgery (SDC) | payer OTHER, MEDICARE | END 2021-07-10 22:39 | disposition home or self-care (01) | LOC: WOUND 01:42 | DX: E11.621 Type 2 diabetes mellitus with foot ulcer (principal); L97.515 Non-pressure chronic ulcer of other part of right foot with muscle involvement without evidence of necrosis; L97.522 Non-pressure chronic ulcer of other part of left foot with fat layer exposed; E11.622 Type 2 diabetes mellitus with other skin ulcer; L97.812 Non-pressure chronic ulcer of other part of right lower leg with fat layer exposed; L97.312 Non-pressure chronic ulcer of right ankle with fat layer exposed; L97.322 Non-pressure chronic ulcer of left ankle with fat layer exposed; E11.51 Type 2 diabetes mellitus with diabetic peripheral angiopathy without gangrene; E11.69 Type 2 diabetes mellitus with other specified complication; M86.272 Subacute osteomyelitis, left ankle and foot; M86.271 Subacute osteomyelitis, right ankle and foot; S81.811A Laceration without foreign body, right lower leg, initial encounter; X58.XXXA Exposure to other specified factors, initial encounter; I87.2 Venous insufficiency (chronic) (peripheral); E11.22 Type 2 diabetes mellitus with diabetic chronic kidney disease; N18.30 Chronic kidney disease, stage 3 unspecified | CPT/HCPCS: A9270 ==

== ENCOUNTER 2021-07-24 01:17 | Day surgery (SDC) | payer OTHER, MEDICARE | END 2021-07-24 23:09 | disposition home or self-care (01) | LOC: WOUND 01:17 | DX: E11.621 Type 2 diabetes mellitus with foot ulcer (principal); L97.515 Non-pressure chronic ulcer of other part of right foot with muscle involvement without evidence of necrosis; L97.522 Non-pressure chronic ulcer of other part of left foot with fat layer exposed; E11.622 Type 2 diabetes mellitus with other skin ulcer; L97.316 Non-pressure chronic ulcer of right ankle with bone involvement without evidence of necrosis; L97.325 Non-pressure chronic ulcer of left ankle with muscle involvement without evidence of necrosis; L97.812 Non-pressure chronic ulcer of other part of right lower leg with fat layer exposed; L97.512 Non-pressure chronic ulcer of other part of right foot with fat layer exposed; I87.2 Venous insufficiency (chronic) (peripheral); R60.0 Localized edema; E11.51 Type 2 diabetes mellitus with diabetic peripheral angiopathy without gangrene; E11.22 Type 2 diabetes mellitus with diabetic chronic kidney disease; N18.30 Chronic kidney disease, stage 3 unspecified; E11.69 Type 2 diabetes mellitus with other specified complication; M86.271 Subacute osteomyelitis, right ankle and foot; M86.272 Subacute osteomyelitis, left ankle and foot; S81.801A Unspecified open wound, right lower leg, initial encounter; X58.XXXA Exposure to other specified factors, initial encounter | CPT/HCPCS: A9270 ==

== ENCOUNTER 2021-08-05 10:54 | Observation (INO) | payer OTHER ==
[~2021-08-05] VITALS: Ht 177.8 cm; Wt 110.8 kg
--- NOTE | 2021-08-05 16:26 | NUR ---
PT HR BRADYCARDIC, LOW 32. DR. PINA NOTIFIED. EKG OBTAINED AND CARDIOLOGY NOTIFIED.
--- NOTE | 2021-08-05 16:47 | NUR ---
DR CASTLE IN TO SEE PT, TO ADMIT OVERNIGHT FOR OBSERVATION. HOSPITALIST TO ADMIT OVERNIGHT.
--- NOTE | 2021-08-05 18:51 | NUR ---
PATIENT ADMIT TO PCU 20. USED SLIDE SHEET TO TRANSFER. PATIENT BEDREST AT THIS TIME. ALERT AND ORIENTED X4. NUMBNESS IN BILATERAL LOWER EXTREMITIES. BILATERAL EQUAL HEAD SCORER STRENGTH. PERRLA. ON ROOM AIR SATING WNL. TELE SHOWING SINUS PILO WITH HR 40-50'S. DENIES CHEST PAIN/PRESSURE. STRONG RADIAL PULSES. POST ANGIO WITH LEFT GROIN SITE. TEGADERM IN PLACE WITH SCANT DRAINAGE. SITE REMAINS SOFT, NONTENDER. NO SIGNS OF HEMATOMA. RIGHT PEDAL SITE WITH GAUZE DRESSING IN PLACE. DRAINAGE ON DRESSING REMAINS UNCHANGED. BILATERAL MEDIAL ANKLE WOUNDS, SEE PICTURES IN CHART. IODINE USED TO CLEAN AND NEW DRESSINGS IN PLACE. PATIENT EATING AT THIS TIME. DENIES NEEDS. ORIENTED TO UNIT AND ROOM. CALL LIGHT IN REACH. WILL CONTINUE TO MONITOR AND REPORT OFF.
--- NOTE | 2021-08-06 00:51 | NUR ---
CODE STATUS PATIENT STATED HE WANTED TO BE DNR/DNI DURING ADMISSION ASSESSMENT AND THAT HE HAS A POLST FILLED OUT BUT IT IS AT [facility] WHERE HE LIVES. POLST UPLOADED INTO ELECTRONIC RECORD FROM 07/23/2020 STATING DNR/DNI. HOSPITALIST MADE AWARE, ORDER RECIEVED TO UPDATE CODE STATUS.
[2021-08-06 04:22] LABS: BASOPHILS ABSOLUTE AUTO 0.04 K/mm3 (0.00-0.23); BASOPHILS PERCENT AUTO 0 % (0-2); EOSINOPHILS ABSOLUTE AUTO 0.37 K/mm3 (0.00-0.68); EOSINOPHILS PERCENT AUTO 4 % (0-6); Hematocrit 33.8 % (37.0-53.0); Hemoglobin 10.4 g/dL (13.5-17.5); IMMATURE GRAN ABSOLUTE AUTO 0.04 K/mm3 (0.00-0.10); IMMATURE GRAN PERCENT AUTO 0 % (0-1); LYMPHOCYTES PERCENT AUTO 20 % (21-46); MONOCYTES ABSOLUTE AUTO 0.89 K/mm3 (0.16-1.47); MONOCYTES PERCENT AUTO 10 % (4-13); Mean Corpuscular HGB 27.4 pg (26.0-34.0); Mean Corpuscular HGB Conc 30.8 g/dL (31.5-36.5); Mean Corpuscular Volume 89 fL (80-100); Mean Platelet Volume 10.2 fL (9.1-12.4); NEUTROPHILS ABSOLUTE AUTO 6.08 K/mm3 (1.96-9.15); NEUTROPHILS PERCENT AUTO 65 % (41-73); Platelet Count 270 K/mm3 (150-400); RDW Coefficient Variation 14.1 % (11.7-14.2); RDW Standard Deviation 45.5 fL (35.1-46.3); White Blood Cell Count 9.32 K/mm3 (4.00-11.30)
[2021-08-06 05:24] LABS: Bun/Creatinine Ratio 32.8 (12.0-20.0); Calcium, Blood 8.4 mg/dL (8.5-10.1); Creatinine, Blood 2.38 mg/dL (0.60-1.20); Potassium, Blood 4.5 mmol/L (3.5-5.5)
--- NOTE | 2021-08-06 06:11 | NUR ---
SHIFT SUMMARY PATIENT ALERT AND ORIENTED X4. VSS, HR PILO AT TIMES IN THE 50s. DENIES CHEST PAIN OR PRESSURE. REMAINS ON RA. LEFT GROIN SITE PALPABLE WITH MINIMAL DRAINAGE UNDER TEGADERM DRESSING. SOFT, NONTENDER, NO SIGNS OF HEMATOMA. RIGHT PEDAL SITE REMAINS UNCHANGED SINCE PREVIOUS NOTE. PICTURES OF WOUNDS IN CHART. PATIENT USES CALL LIGHT APPROPRIATELY AND IS ABLE TO MAKE NEEDS KNOWN TO STAFF. USES URINAL AT BEDSIDE WITH MINIMAL ASSISTANCE FROM STAFF. COMPLAINTS OF BACK PAIN THIS SHIFT, MEDICATED PER EMAR. NO OTHER SIGNIFICANT CHANGES, WILL REPORT TO DAY SHIFT RN.
--- NOTE | 2021-08-06 12:25 | NUR ---
PT DISCHARGE TO HOME TODAY WITH DISCHARGE ORDERS. DISCLOSED DISCHARGE INSTRUCTIONS PT VERBALIZED UNDERSTANDING, CALLED JOSE JOHNSON TO GIVE REPORT TO RN, NO ANSWER RECEIVED LEFT A VOICEMAIL WILL WAIT FOR A CALL BACK. NO ISSUES REPORTED PRIOR TO DISCHARGE, VITALS HAS BEEN STABLE. DRESSINGS ON LEFT GROIN AND RIGHT FOOT REMIANED INTACT, PT HAD A BED BATH THIS MORNING WOUND DRESSINGS ON BILAT ANKLES CLEANED AND REPLACED. ALL BELONGINGS SENT WITH THE PT, PT ACCOMPANIED VIA HIS POWER CHAIR FOR TRANSPORT.
== END 2021-08-06 12:19 | disposition home or self-care (01) ==
LOC: MHTC 10:54 → PCU 17:50 → MHTC 17:52 → PCU 23:27 → MHTC 23:27 → PCU 08-06 12:19 → MHTC 08-14 06:30
PROVIDERS: Internal Medicine; ADMIT Radiology Diagnostic Radiology
DX: R00.1 Bradycardia, unspecified (principal); I70.221 Atherosclerosis of native arteries of extremities with rest pain, right leg; L97.909 Non-pressure chronic ulcer of unspecified part of unspecified lower leg with unspecified severity; F32.A Depression, unspecified; I42.0 Dilated cardiomyopathy; E11.51 Type 2 diabetes mellitus with diabetic peripheral angiopathy without gangrene; I12.9 Hypertensive chronic kidney disease with stage 1 through stage 4 chronic kidney disease, or unspecified chronic kidney disease; N18.4 Chronic kidney disease, stage 4 (severe); J44.9 Chronic obstructive pulmonary disease, unspecified; Z66 Do not resuscitate; Z88.0 Allergy status to penicillin; Z88.2 Allergy status to sulfonamides; Z88.8 Allergy status to other drugs, medicaments and biological substances; Z79.4 Long term (current) use of insulin
CPT/HCPCS: 36415; 37220; 37226; 75625; 75716; 75774; 76937; 80048; 82947; 85025; 85347; 90686; 93005; 93010; 96372; 99152; 99153; A9270; C1724; C1725; C1760; C1769; C1874; C1887; C1894; C2623; C9772; G0008; G0378; J1644; J1650; J1815; J2250; J3010; J7030; J7050; Q9967